=== PATIENT | male | born 1965 | race Caucasian/White ===

== ENCOUNTER 2017-08-06 16:12 | Emergency (ER) | payer MEDICAID ==
[~2017-08-06 16:12] MED LIST: ALBU6.7H INH; CYCL-36 PO; IBUP-238 PO; LORT5TAB PO; PRED20 PO; Z.0.NO CURRENT MEDS; ZITH250T PO
[2017-08-06 16:21] VITALS: BP 163/82; PULSE 79; RESP 16; TEMP 98.2; O2SAT 98
[2017-08-06] MEDS ORDERED: MORPHINE SULFATE 4 MG/ML INJ IV PUSH ONE (17:00)
[2017-08-06] MEDS ORDERED: SODIUM CHLORIDE 0.9% FLUSH 10 ML FLUSH IVF PRN (17:00)
[2017-08-06] MEDS ORDERED: ONDANSETRON HCL 4 MG/2 ML VIAL IV PUSH ONE (17:00)
[2017-08-06] MEDS ORDERED: SODIUM CHLORID 0.9% 500 ML INJ 500 ML IV ONE (17:00)
--- NOTE | 2017-08-06 17:22 | PD ---
HPI Chief Complaint: Cardiac Complaint Time Seen by Provider: 16:25 Travel History International Travel<30 days: No Contact w/Intl Traveler<30days: No Traveled to known affect area: No History of Present Illness HPI The patient is a 52-year-old male who presents emergency department for multiple complaints. The patient states he has a history of her herniated disks secondary to work. The patient was seen by Worker's Comp. physician, Dr. Freddy Morales. The patient was advised there was no surgery and he was advised to have outpatient treatment. The patient has been receiving epidural steroid injections at [facility] in [place], [place]. The patient had an epidural injection last week, states his blood pressure was slightly elevated , and was worried there could be some complication from the injection. He does complain of a mild headache, palpitations, intermittent sharp chest pains on the left side of the chest which lasts several seconds and then resolved. He does have a history of tobacco use with chronic cough, denies any acute shortness of breath or change in cough. He denies any nausea or vomiting. He does complain of chronic low back pain. He denies any diffuse myalgias or arthralgias. He denies any current fevers, chills, or sweats. PFSH Past Medical History Arthritis: No Cardiovascular Problems: No Cerebrovascular Accident: No Diminished Hearing: No Genitourinary: No Headaches: Yes Musculoskeletal: Yes (CHRONIC BACK PAIN) Neurologic: Yes Reproductive: No Respiratory: No Migraines: No Seizures: No Past Surgical History Abdominal Surgery: No Cardiac Surgery: No Ear Surgery: No Endocrine Surgery: No Eye Surgery: No Genitourinary Surgery: No Gynecologic Surgery: No Oral Surgery: No Thoracic Surgery: No Other Surgery: Yes (NECK) Social History Alcohol Use: Yes (OCCASIONAL) Tobacco Use: Yes (ONE PACK PER DAY) Substance Use: No Allergies-Medications (Allergen,Severity, Reaction): Coded Allergies: No Known Allergies (Verified , 01/20/13) Reported Meds & Prescriptions Reported Meds & Active Scripts Active No Active Prescriptions or Reported Medications Review of Systems Except as stated in HPI: all other systems reviewed are Neg General / Constitutional: No: Fever, Chills HENT: Positive: Headaches, No: Lightheadedness Cardiovascular: Positive: Chest Pain or Discomfort Respiratory: Positive: Cough, No: Shortness of Breath Gastrointestinal: No: Nausea, Vomiting, Diarrhea, Abdominal Pain Genitourinary: No: Dysuria Musculoskeletal: Positive: Pain (chronic low back pain), No: Myalgias, Arthralgias Neurologic: No: Dizziness Physical Exam Narrative GENERAL: Awake, alert, pleasant 52-year-old male who appears his stated age and is in no acute respiratory distress. SKIN: Focused skin assessment warm/dry. HEAD: Atraumatic. Normocephalic. EYES: Pupils equal and round. No scleral icterus. No injection or drainage. ENT: No nasal bleeding or discharge. Breath smells of cigarettes. NECK: Trachea midline. No JVD. CARDIOVASCULAR: Regular rate and rhythm. No murmur appreciated. RESPIRATORY: No accessory muscle use. Few scattered rhonchi. GASTROINTESTINAL: Abdomen soft, non-tender, nondistended. No rebound tenderness. Back: No CVA tenderness. No visible erythema or edema of the lower back noted. MUSCULOSKELETAL: No obvious deformities. No clubbing. No cyanosis. No edema. NEUROLOGICAL: Awake and alert. No obvious cranial nerve deficits. Motor grossly within normal limits. Normal speech. Nonfocal. PSYCHIATRIC: Appropriate mood and affect; insight and judgment normal. Data Data Last Documented VS Vital Signs Date Time Temp Pulse Resp B/P (MAP) Pulse Ox O2 Delivery O2 Flow Rate FiO2 08/06/17 17:55 Room Air 08/06/17 17:55 08/06/17 16:21 98.2 79 16 98 Orders Orders Electrocardiogram (08/06/17 16:54) Ckmb (Isoenzyme) Profile (08/06/17 16:54) Complete Blood Count With Diff (08/06/17 16:54) Comprehensive Metabolic Panel (08/06/17 16:54) Magnesium (Mg) (08/06/17 16:54) Prothrombin Time / Inr (Pt) (08/06/17 16:54) Act Partial Throm Time (Ptt) (08/06/17 16:54) Troponin I (08/06/17 16:54) Chest, Single Ap (08/06/17 16:54) Ecg Monitoring (08/06/17 16:54) Bilateral Bp Monitoring (08/06/17 16:54) Iv Access Insert/Monitor (08/06/17 16:54) Oximetry (08/06/17 16:54) Oxygen Administration (08/06/17 16:54) Sodium Chloride 0.9% Flush (Ns Flush) (08/06/17 17:00) Sodium Chlorid 0.9% 500 Ml Inj (Ns 500 M (08/06/17 17:00) Morphine Inj (Morphine Inj) (08/06/17 17:00) Ondansetron Inj (Zofran Inj) (08/06/17 17:00) Lactic Acid (08/06/17 16:54) Blood Culture (08/06/17 16:54) Influenzae A/B Antigen (08/06/17 17:45) Labs Laboratory Tests Test 08/06/17 17:40 08/06/17 17:50 White Blood Count 12.3 TH/MM3 Red Blood Count 5.07 MIL/MM3 Hemoglobin 16.7 GM/DL Hematocrit 47.6 % Mean Corpuscular Volume 93.7 FL Mean Corpuscular Hemoglobin 32.8 PG Mean Corpuscular Hemoglobin Concent 35.0 % Red Cell Distribution Width 13.8 % Platelet Count 310 TH/MM3 Mean Platelet Volume 8.1 FL Neutrophils (%) (Auto) 74.3 % Lymphocytes (%) (Auto) 17.6 % Monocytes (%) (Auto) 6.7 % Eosinophils (%) (Auto) 0.7 % Basophils (%) (Auto) 0.7 % Neutrophils # (Auto) 9.2 TH/MM3 Lymphocytes # (Auto) 2.2 TH/MM3 Monocytes # (Auto) 0.8 TH/MM3 Eosinophils # (Auto) 0.1 TH/MM3 Basophils # (Auto) 0.1 TH/MM3 CBC Comment AUTO DIFF Prothrombin Time 10.0 SEC Prothromb Time International Ratio 1.0 RATIO Activated Partial Thromboplast Time 23.7 SEC Blood Urea Nitrogen 14 MG/DL Creatinine 1.21 MG/DL Random Glucose 112 MG/DL Total Protein 7.1 GM/DL Albumin 3.8 GM/DL Calcium Level 9.2 MG/DL Magnesium Level 2.4 MG/DL Alkaline Phosphatase 63 U/L Aspartate Amino Transf (AST/SGOT) 15 U/L Alanine Aminotransferase (ALT/SGPT) 25 U/L Total Bilirubin 0.4 MG/DL Sodium Level 140 MEQ/L Potassium Level 3.8 MEQ/L Chloride Level 107 MEQ/L Carbon Dioxide Level 25.4 MEQ/L Anion Gap 8 MEQ/L Estimat Glomerular Filtration Rate 63 ML/MIN Total Creatine Kinase 51 U/L Troponin I LESS THAN 0.02 NG/ML Lactic Acid Level 0.8 mmol/L MDM Medical Decision Making Medical Screen Exam Complete: Yes Emergency Medical Condition: Yes Medical Record Reviewed: Yes Interpretation(s) EKG reveals normal sinus rhythm with short [place] interval of 111 ms. No delta wave noted. No ischemic changes noted. Last Impressions Chest X-Ray 08/06/17 4954 Signed Impressions: Service Date/Time: Sunday, August 06, 2017 17:07 - CONCLUSION: 1. No acute cardiopulmonary process. 2. Mild levoscoliosis of the dorsal spine which may be positional. Matt Powell MD Laboratory Tests Test 08/06/17 17:40 08/06/17 17:50 White Blood Count 12.3 TH/MM3 Red Blood Count 5.07 MIL/MM3 Hemoglobin 16.7 GM/DL Hematocrit 47.6 % Mean Corpuscular Volume 93.7 FL Mean Corpuscular Hemoglobin 32.8 PG Mean Corpuscular Hemoglobin Concent 35.0 % Red Cell Distribution Width 13.8 % Platelet Count 310 TH/MM3 Mean Platelet Volume 8.1 FL Neutrophils (%) (Auto) 74.3 % Lymphocytes (%) (Auto) 17.6 % Monocytes (%) (Auto) 6.7 % Eosinophils (%) (Auto) 0.7 % Basophils (%) (Auto) 0.7 % Neutrophils # (Auto) 9.2 TH/MM3 Lymphocytes # (Auto) 2.2 TH/MM3 Monocytes # (Auto) 0.8 TH/MM3 Eosinophils # (Auto) 0.1 TH/MM3 Basophils # (Auto) 0.1 TH/MM3 CBC Comment AUTO DIFF Prothrombin Time 10.0 SEC Prothromb Time International Ratio 1.0 RATIO Activated Partial Thromboplast Time 23.7 SEC Blood Urea Nitrogen 14 MG/DL Creatinine 1.21 MG/DL Random Glucose 112 MG/DL Total Protein 7.1 GM/DL Albumin 3.8 GM/DL Calcium Level 9.2 MG/DL Magnesium Level 2.4 MG/DL Alkaline Phosphatase 63 U/L Aspartate Amino Transf (AST/SGOT) 15 U/L Alanine Aminotransferase (ALT/SGPT) 25 U/L Total Bilirubin 0.4 MG/DL Sodium Level 140 MEQ/L Potassium Level 3.8 MEQ/L Chloride Level 107 MEQ/L Carbon Dioxide Level 25.4 MEQ/L Anion Gap 8 MEQ/L Estimat Glomerular Filtration Rate 63 ML/MIN Total Creatine Kinase 51 U/L Troponin I LESS THAN 0.02 NG/ML Lactic Acid Level 0.8 mmol/L Date/Time Source Procedure Growth Status 08/06/17 17:40 Blood Peripheral Aerobic Blood Culture Pending Received 08/06/17 17:40 Blood Peripheral Anaerobic Blood Culture Pending Received 08/06/17 17:40 Blood Peripheral Aerobic Blood Culture Pending Received 08/06/17 17:40 Blood Peripheral Anaerobic Blood Culture Pending Received 08/06/17 17:40 Nasal Aspirate Influenza Types A,B Antigen (JESSICA) - Final NEGATIVE FOR FLU A AND B ANTIGEN.... Complete Differential Diagnosis Differential diagnosis includes influenza, pneumonia, UTI, epidural steroid injections side effect, symptomatic anemia, hyponatremia, palpitations, arrhythmia, hypothyroidism, anxiety. Narrative Course IV was established, labs are drawn and sent, and the patient was placed on cardiac telemetry monitoring and continuous pulse oximetry monitoring. EKG was ordered and interpreted. Chest x-ray was obtained. Lactic acid and blood culture were sent to lab. Influenza screen was sent to lab. The patient received IV fluids. Chest x-rays unremarkable. Influenza screen is negative. Troponin was negative. The patient's pain is sharp, lasts seconds, is not exertional. Very atypical chest pain. I did have a discussion with the patient regarding cessation of smoking. Blood pressure was elevated 160s over 90s, we will place the patient on Norvasc and refer him to the local clinic. He is advised to return if symptoms worsen or progress. Diagnosis Primary Impression: Atypical chest pain Additional Impression: Hypertension Qualified Codes: I10 - Essential (primary) hypertension Referrals: [facility] call for appointment Patient Instructions: General Instructions Additional Instructions: Stop smoking. Follow-up at the clinic. Medications as directed. Return if symptoms worsen or progress. Please provide a patient a copy of his EKG and labs at discharge. Med/Other Pt SpecificInfo: Prescription(s) given Scripts Amlodipine (Norvasc) 5 Mg Tab 5 MG PO DAILY for Blood Pressure Management, #30 TAB 0 Refills Prov: Osei Mederos MD 08/06/17 Disposition: 01 DISCHARGE HOME Condition: Stable Osei Mederos MD Aug 06, 2017 17:22
--- NOTE | 2017-08-06 17:30 | RADRPT ---
EXAM DATE/TIME: 08/06/2017 17:07 [facility] COMPARISON: No previous studies available for comparison. INDICATIONS : Chest pain. Palpitations. Patent states he as felt strange since his epidural shot last week. MEDICAL HISTORY : None. SURGICAL HISTORY : None. ENCOUNTER: Initial ACUITY: 4 - 6 days PAIN SCORE: 4/10 LOCATION: Bilateral chest FINDINGS: A single view of the chest demonstrates the lungs to be symmetrically aerated without evidence of mas s, infiltrate or effusion. The cardiomediastinal contours are unremarkable. Osseous structures are intact with a mild levoscoliosis of the dorsal spine. CONCLUSION: 1. No acute cardiopulmonary process. 2. Mild levoscoliosis of the dorsal spine which may be positional. Matt Powell MD on August 06, 2017 at 17:27 Board Certified Radiologist. This report was verified electronically.
[2017-08-06 18:11] LABS: AUTOMATED NEUTROPHIL # 9.2 TH/MM3 (1.8-7.7); BASOPHIL # 0.1 TH/MM3 (0-0.2); BASOPHIL % 0.7 % (0.0-2.0); EOSINOPHIL # 0.1 TH/MM3 (0-0.4); EOSINOPHIL % 0.7 % (0.0-4.0); HEMATOCRIT 47.6 % (39.0-51.0); HEMOGLOBIN 16.7 GM/DL (13.0-17.0); LYMPH % 17.6 % (9.0-44.0); LYMPHOCYTE # 2.2 TH/MM3 (1.0-4.8); MEAN CELL VOLUME 93.7 FL (80.0-100.0); MEAN CORPUSCULAR HEMOGLOBIN 32.8 PG (27.0-34.0); MEAN PLATELET VOLUME 8.1 FL (7.0-11.0); MONO % 6.7 % (0.0-8.0); MONOCYTE # 0.8 TH/MM3 (0-0.9); NEUT % 74.3 % (16.0-70.0); PLATELET COUNT 310 TH/MM3 (150-450); RED BLOOD COUNT 5.07 MIL/MM3 (4.50-5.90); RED CELL DISTRIBUTION WIDTH 13.8 % (11.6-17.2); WHITE BLOOD COUNT 12.3 TH/MM3 (4.0-11.0)
[2017-08-06 18:35] LABS: ALBUMIN 3.8 GM/DL (3.4-5.0); AST (GOT) 15 U/L (15-37); BICARBONATE 25.4 MEQ/L (21.0-32.0); BLOOD UREA NITROGEN 14 MG/DL (7-18); CALCIUM 9.2 MG/DL (8.5-10.1); CHLORIDE 107 MEQ/L (98-107); CREATININE 1.21 MG/DL (0.60-1.30); GLOMERULAR FILTRATION RATE 63 ML/MIN (>89); GLUCOSE,RANDOM 112 MG/DL (74-106); MAGNESIUM 2.4 MG/DL (1.5-2.5); SODIUM (NA) 140 MEQ/L (136-145)
[2017-08-06 18:37] LABS: ALKALINE PHOSPHATASE 63 U/L (45-117); ALT (GPT) 25 U/L (12-78); TOTAL BILIRUBIN ADULT 0.4 MG/DL (0.2-1.0); TOTAL PROTEIN 7.1 GM/DL (6.4-8.2); TROPONIN I LESS THAN 0.02 NG/ML (0.02-0.05)
[2017-08-06] MEDS ORDERED: AMLO5 PO ×2 (19:19→19:40)
[2017-08-06 19:30] VITALS: BP 160/92
--- NOTE | 2017-08-07 00:39 | EKG ---
Date Performed: 08/06/2017 Time Performed: 16:21:30 PTAGE: 52 years EKG: Sinus rhythm WITH SHORT MD INTERVAL BORDERLINE ECG Since the prior tracing, there has been no significant change DOCTOR: Mingo Brandt Interpretating Date/Time 08/07/2017 00:38:45
== END 2017-08-06 19:49 | disposition home or self-care (01) ==
LOC: NEPC 16:12
DX: R07.89 Other chest pain (principal); B95.7 Other staphylococcus as the cause of diseases classified elsewhere; R00.2 Palpitations; R51 Headache; M41.9 Scoliosis, unspecified; M54.5 Low back pain; G89.29 Other chronic pain; I10 Essential (primary) hypertension; F17.200 Nicotine dependence, unspecified, uncomplicated
CPT/HCPCS: 71045; 80053; 82550; 83605; 83735; 84484; 85025; 85610; 85730; 86403; 87040; 87077; 87186; 87205; 87804; 93005; 96374; 96375; 99285; J2270; J2405; J7040

== ENCOUNTER 2017-08-11 11:44 | Inpatient (IN) | payer MEDICAID ==
[~2017-08-11] VITALS: Ht 182.9 cm; Wt 55.6 kg
[~2017-08-11 11:44] MED LIST changes: -ALBU6.7H INH; +AMLO5 PO; -CYCL-36 PO; -IBUP-238 PO; -LORT5TAB PO; -PRED20 PO; -Z.0.NO CURRENT MEDS; -ZITH250T PO
[2017-08-11 11:46] VITALS: BP 136/92; PULSE 83; RESP 18; TEMP 97.5; O2SAT 83; O2SAT 93
[2017-08-11] MEDS ORDERED: SODIUM CHLOR 0.9% 1000 ML INJ 1,000 ML IV ONE (12:30)
[2017-08-11] MEDS ORDERED: LEVOFLOXACIN 750 MG PREMIX INJ 150 ML IV ONE (12:30)
--- NOTE | 2017-08-11 12:46 | RADRPT ---
EXAM DATE/TIME: 08/11/2017 12:32 [facility] COMPARISON: CHEST SINGLE AP, August 06, 2017, 17:07. INDICATIONS : Fever and short of breath. MEDICAL HISTORY : None. SURGICAL HISTORY : None. ENCOUNTER: Initial ACUITY: 1 day PAIN SCORE: 0/10 LOCATION: Bilateral chest FINDINGS: A single view of the chest demonstrates the lungs to be symmetrically aerated without evidence of mas s, infiltrate or effusion. The cardiomediastinal contours are unremarkable. Osseous structures are intact. CONCLUSION: No acute disease. Reza Diaz MD on August 11, 2017 at 12:43 Board Certified Radiologist. This report was verified electronically.
[2017-08-11 12:48] LABS: AUTOMATED NEUTROPHIL # 7.1 TH/MM3 (1.8-7.7); BASOPHIL # 0.1 TH/MM3 (0-0.2); BASOPHIL % 0.9 % (0.0-2.0); EOSINOPHIL # 0.1 TH/MM3 (0-0.4); EOSINOPHIL % 1.4 % (0.0-4.0); HEMATOCRIT 47.2 % (39.0-51.0); HEMOGLOBIN 16.3 GM/DL (13.0-17.0); LYMPH % 23.3 % (9.0-44.0); LYMPHOCYTE # 2.4 TH/MM3 (1.0-4.8); MEAN CELL VOLUME 94.5 FL (80.0-100.0); MEAN CORPUSCULAR HEMOGLOBIN 32.6 PG (27.0-34.0); MEAN CORPUSCULAR HGB CONC 34.5 % (32.0-36.0); MEAN PLATELET VOLUME 7.8 FL (7.0-11.0); MONO % 6.7 % (0.0-8.0); MONOCYTE # 0.7 TH/MM3 (0-0.9); NEUT % 67.7 % (16.0-70.0); PLATELET COUNT 305 TH/MM3 (150-450); RED BLOOD COUNT 4.99 MIL/MM3 (4.50-5.90); RED CELL DISTRIBUTION WIDTH 14.2 % (11.6-17.2); WHITE BLOOD COUNT 10.4 TH/MM3 (4.0-11.0)
[2017-08-11 13:04] LABS: ALBUMIN 3.9 GM/DL (3.4-5.0); BLOOD UREA NITROGEN 13 MG/DL (7-18); CALCIUM 9.5 MG/DL (8.5-10.1); CHLORIDE 105 MEQ/L (98-107); CREATININE 1.19 MG/DL (0.60-1.30); GLOMERULAR FILTRATION RATE 64 ML/MIN (>89); GLUCOSE,RANDOM 86 MG/DL (74-106); SODIUM (NA) 138 MEQ/L (136-145)
[2017-08-11 13:05] LABS: ALT (GPT) 21 U/L (12-78)
[2017-08-11 13:07] LABS: ALKALINE PHOSPHATASE 66 U/L (45-117); AST (GOT) 10 U/L (15-37); TOTAL BILIRUBIN ADULT 0.4 MG/DL (0.2-1.0); TOTAL PROTEIN 7.4 GM/DL (6.4-8.2)
--- NOTE | 2017-08-11 14:26 | PD ---
HPI Chief Complaint: Abnormal Results Time Seen by Provider: 12:09 Travel History International Travel<30 days: No Contact w/Intl Traveler<30days: No Traveled to known affect area: No History of Present Illness HPI Patient is a 52 year old male who comes in because he was called to come to the Emergency Department. He had blood cultures drawn on a previous visit and was called to come back because they were growing staph. He says he has been feeling unwell for the past month. He says he has been shaking, but cannot describe further his symptoms. He is concerned that his blood pressure has been high. He is not having any chest pain or shortness of breath. He has not had any cough or cold. He denies nausea or vomiting. He has been taking pain medicine for his back. Nothing seems to improve his shaking. 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) Social History Alcohol Use: Yes (OCCASIONAL) Tobacco Use: Yes (ONE PACK PER DAY) Substance Use: No Allergies-Medications (Allergen,Severity, Reaction): Coded Allergies: No Known Allergies (Verified Allergy, Unknown, 08/11/17) Reported Meds & Prescriptions Reported Meds & Active Scripts Active Norvasc (Amlodipine Besylate) 5 Mg Tab 5 Mg PO DAILY Review of Systems Except as stated in HPI: all other systems reviewed are Neg General / Constitutional: Positive: Chills, No: Fever HENT: No: Headaches, Lightheadedness Cardiovascular: No: Chest Pain or Discomfort Respiratory: No: Shortness of Breath Gastrointestinal: No: Nausea, Vomiting Genitourinary: No: Dysuria Musculoskeletal: No: Myalgias Skin: No Rash, No Change in Pigmentation Neurologic: No: Weakness, Dizziness Physical Exam Narrative GENERAL: Awake and alert, no acute distress. SKIN: Focused skin assessment warm/dry. No wounds or signs of infection. HEAD: Atraumatic. Normocephalic. EYES: Pupils equal and round. No scleral icterus. ENT: Mucous membranes pink and moist. NECK: Trachea midline. No JVD. CARDIOVASCULAR: Regular rate and rhythm. No murmur appreciated. RESPIRATORY: No accessory muscle use. Clear to auscultation. Breath sounds equal bilaterally. GASTROINTESTINAL: Abdomen soft, non-tender, nondistended. MUSCULOSKELETAL: No obvious deformities. No clubbing. No cyanosis. No edema. NEUROLOGICAL: Awake and alert. No obvious cranial nerve deficits. Motor grossly within normal limits. Normal speech. PSYCHIATRIC: Appropriate mood and affect; insight and judgment normal. Data Data Last Documented VS Vital Signs Date Time Temp Pulse Resp B/P (MAP) Pulse Ox O2 Delivery O2 Flow Rate FiO2 08/11/17 11:46 97.5 83 18 136/92 (107) 93 Room Air Orders Orders Iv Access Insert/Monitor (08/11/17 12:17) Complete Blood Count With Diff (08/11/17 12:17) Comprehensive Metabolic Panel (08/11/17 12:17) Chest, Single Ap (08/11/17 ) Blood Culture (08/11/17 12:17) Sodium Chlor 0.9% 1000 Ml Inj (Ns 1000 M (08/11/17 12:30) Influenzae A/B Antigen (08/11/17 12:17) Levofloxacin 750 Mg Premix Inj (Levaquin (08/11/17 12:30) Admit Order (Ed Use Only) (08/11/17 ) Admit To Inpatient (08/11/17 ) Vital Signs (Adult) DENG.[id number] (08/11/17 14:30) Activity Oob With Assistance (08/11/17 14:30) Inpatient Certification (08/11/17 ) Consult Infectious Disease (08/11/17 ) Labs Laboratory Tests Test 08/11/17 12:30 White Blood Count 10.4 TH/MM3 Red Blood Count 4.99 MIL/MM3 Hemoglobin 16.3 GM/DL Hematocrit 47.2 % Mean Corpuscular Volume 94.5 FL Mean Corpuscular Hemoglobin 32.6 PG Mean Corpuscular Hemoglobin Concent 34.5 % Red Cell Distribution Width 14.2 % Platelet Count 305 TH/MM3 Mean Platelet Volume 7.8 FL Neutrophils (%) (Auto) 67.7 % Lymphocytes (%) (Auto) 23.3 % Monocytes (%) (Auto) 6.7 % Eosinophils (%) (Auto) 1.4 % Basophils (%) (Auto) 0.9 % Neutrophils # (Auto) 7.1 TH/MM3 Lymphocytes # (Auto) 2.4 TH/MM3 Monocytes # (Auto) 0.7 TH/MM3 Eosinophils # (Auto) 0.1 TH/MM3 Basophils # (Auto) 0.1 TH/MM3 CBC Comment DIFF FINAL Differential Comment Blood Urea Nitrogen 13 MG/DL Creatinine 1.19 MG/DL Random Glucose 86 MG/DL Total Protein 7.4 GM/DL Albumin 3.9 GM/DL Calcium Level 9.5 MG/DL Alkaline Phosphatase 66 U/L Aspartate Amino Transf (AST/SGOT) 10 U/L Alanine Aminotransferase (ALT/SGPT) 21 U/L Total Bilirubin 0.4 MG/DL Sodium Level 138 MEQ/L Potassium Level 3.8 MEQ/L Chloride Level 105 MEQ/L Carbon Dioxide Level 26.0 MEQ/L Anion Gap 7 MEQ/L Estimat Glomerular Filtration Rate 64 ML/MIN MDM Medical Decision Making Medical Screen Exam Complete: Yes Emergency Medical Condition: Yes Medical Record Reviewed: Yes Differential Diagnosis Bacteremia versus sepsis versus contaminant Narrative Course Patient is a 52-year-old male who comes in because he was told he had positive blood cultures. Exam shows no acute abnormalities. IV established, labs sent. Blood cultures resent. Given IV fluids and a dose of Levaquin per sensitivities from the positive blood cultures. He will be admitted for further management. Diagnosis Primary Impression: Positive blood cultures Noreen Hui MD Aug 11, 2017 14:26
[2017-08-11 15:02] VITALS: BP 131/77; PULSE 69; RESP 16; O2SAT 100
[2017-08-11 16:30] VITALS: BP 164/87; PULSE 83; RESP 18; TEMP 98.3; O2SAT 98
[2017-08-11] MEDS ORDERED: MORPHINE SULFATE 2 MG/ML INJ IV PUSH PRN (16:45)
[2017-08-11] MEDS ORDERED: cloNIDine HCL 0.1 MG TAB PO PRN ×2 (16:45→17:30)
[2017-08-11] MEDS ORDERED: RESP: ALBUTEROL 2.5 MG/IPRATROPIUM 0.5 MG NEB (PRN) NEB (16:45)
[2017-08-11] MEDS ORDERED: SENNOSIDES 8.6 MG TAB PO PRN (16:45)
[2017-08-11] MEDS ORDERED: ACETAMINOPHEN 325 MG TAB PO PRN ×2 (16:45)
[2017-08-11] MEDS ORDERED: oxyCODONE/ACETAMINOPHEN 5 MG/325 MG TAB PO PRN (16:45)
[2017-08-11] MEDS ORDERED: ZOLPIDEM TARTRATE 5 MG TAB PO PRN (16:45)
[2017-08-11] MEDS ORDERED: LACTULOSE SYRUP 20 GM/30 ML CUP PO PRN (16:45)
[2017-08-11] MEDS ORDERED: MORPHINE SULFATE 4 MG/ML INJ IV PUSH PRN (16:45)
[2017-08-11] MEDS ORDERED: NICOTINE 14 MG/24 HR PATCH T-DERMAL ONE (16:45)
[2017-08-11] MEDS ORDERED: MAGNESIUM HYDROXIDE SUSP 30 ML CUP PO PRN (16:45)
[2017-08-11] MEDS ORDERED: NALOXONE HCL 0.4 MG/ML AMP IV PUSH PRN (16:45)
[2017-08-11] MEDS ORDERED: ONDANSETRON HCL 4 MG/2 ML VIAL IVP PRN (16:45)
[2017-08-11] MEDS ORDERED: BISACODYL 10 MG SUPP RECTAL PRN (16:45)
[2017-08-11] MEDS ORDERED: METOCLOPRAMIDE HCL 10 MG/2 ML VIAL IV PUSH PRN (16:45)
--- NOTE | 2017-08-11 17:10 | HHI.HP ---
[facility] Service [facility] Primary Care Physician No Primary Care Physician Admission Diagnosis Positive blood culture Diagnoses: Chief Complaint: HE was recommended to come in to the hospital for positive blood cultures Travel History International Travel<30 Days: No Contact w/Intl Traveler <30 Da: No Traveled to Known Affected Are: No History of Present Illness Patient is a 52-year-old gentleman. He presented to the emergency department after being seen here and had positive blood cultures. He was told to come back to the hospital for further evaluation. His blood cultures are currently positive for [employer] with positive sensitivity for Levaquin. We'll consult infectious disease. Patient also states he's had maybe a 20 pound weight loss with inactivity over the last 6-7 months due to his injury to his back from [employer]. States he has had multiple steroid injections in his back Review of Systems Constitutional: COMPLAINS OF: Fatigue, Weight loss, DENIES: Diaphoretic episodes, Fever, Weight gain, Chills, Dizziness, Change in appetite, Night Sweats Endocrine: DENIES: Heat/cold intolerance, Polydipsia, Polyuria, Polyphagia Eyes: DENIES: Blurred vision, Diplopia, Eye inflammation, Eye pain Ears, nose, mouth, throat: DENIES: Tinnitus, Hearing loss, Vertigo, Nasal discharge, Oral lesions, Throat pain, Hoarseness Respiratory: COMPLAINS OF: Cough, DENIES: Apneas, Snoring, Wheezing, Hemoptysis , Sputum production, Shortness of breath Cardiovascular: DENIES: Chest pain, Palpitations, Syncope, Dyspnea on Exertion , PND, Lower Extremity Edema Gastrointestinal: DENIES: Abdominal pain, Black stools, Bloody stools, Constipation, Diarrhea Genitourinary: DENIES: Sexual dysfunction, Urinary frequency, Urinary incontinence Musculoskeletal: COMPLAINS OF: Joint pain, Back pain, Neck pain, DENIES: Muscle aches, Stiffness, Joint Swelling Integumentary: DENIES: Abnormal pigmentation, Nail changes, Pruritus, Rash Hematologic/lymphatic: DENIES: Bruising, Lymphadenopathy Immunologic/allergic: DENIES: Eczema, Urticaria Neurologic: DENIES: Abnormal gait, Headache, Localized weakness, Paresthesias, Seizures, Speech Problems, Tremor, Poor Balance Psychiatric: DENIES: Anxiety, Confusion, Mood changes, Depression, Hallucinations, Agitation, Suicidal Ideation, Homicidal Ideation, Delusions Except as stated in HPI: all other systems reviewed are Neg Past Family Social History Past Medical History Hypertension Chronic neck pain Chronic back pain since injury to his back Tobacco abuse Past Surgical History Artificial disc surgery in his neck Multiple epidural steroid injections in his lower back Reported Medications Reported Meds & Active Scripts Active Norvasc (Amlodipine Besylate) 5 Mg Tab 5 Mg PO DAILY Allergies: Coded Allergies: No Known Allergies (Verified Adverse Reaction, Unknown, 08/11/17) Active Ordered Medications Current Medications Sodium Chloride 1,000 ml @ 999 mls/hr BOLUS ONCE IV Last administered on 08/11at 12:36; Start 08/11/17 at 12:30; Stop 08/11/17 at 13:30; Status DC Levofloxacin/ Dextrose 150 ml @ 100 mls/hr ONCE ONCE IV Last administered on 08/11/17at 12:36; Start 08/11/17 at 12:30; Stop 08/11/17 at 13:59; Status DC Family History Mother with heart disease had bypass surgery at age 35 Father at 54 from prostate cancer Social History Tobacco abuse at least a pack daily Occasional alcoholic beverage Denies any illicits Physical Exam Vital Signs Vital Signs Date Time Temp Pulse Resp B/P (MAP) Pulse Ox O2 Delivery O2 Flow Rate FiO2 08/11/17 15:02 69 16 131/77 (95) 100 Room Air 08/11/17 11:46 97.5 83 18 136/92 (107) 93 Room Air Physical Exam GENERAL: This is a white thin male, well-developed patient, in no apparent distress. Actually appears to be quite thin male SKIN: No rashes, ecchymoses or lesions. Cool and dry. HEAD: Atraumatic. Normocephalic. No temporal or scalp tenderness. EYES: Pupils equal round and reactive. Extraocular motions intact. No scleral icterus. No injection or drainage. ENT: Nose without bleeding, purulent drainage or septal hematoma. Throat without erythema, tonsillar hypertrophy or exudate. Uvula midline. Airway patent. NECK: Trachea midline. No JVD or lymphadenopathy. Supple, nontender, no meningeal signs. CARDIOVASCULAR: Regular rate and rhythm without murmurs, gallops, or rubs. S1- S2 no S3-S4 RESPIRATORY: Clear to auscultation. Breath sounds equal bilaterally. No wheezes , rales, Few scattered rhonchi GASTROINTESTINAL: Abdomen soft, non-tender, nondistended. No hepato-splenomegaly , or palpable masses. No guarding. MUSCULOSKELETAL: Extremities without clubbing, cyanosis, or edema. No joint tenderness, effusion, or edema noted. No calf tenderness. Negative Homans sign bilaterally. NEUROLOGICAL: Awake and alert. Cranial nerves II through XII intact. Motor and sensory grossly within normal limits. 4 out of 5 muscle strength in all muscle groups. Normal speech. Insight and judgment is good Mood and behavior is appropriate Laboratory Laboratory Tests Test 08/11/17 12:30 White Blood Count 10.4 Red Blood Count 4.99 Hemoglobin 16.3 Hematocrit 47.2 Mean Corpuscular Volume 94.5 Mean Corpuscular Hemoglobin 32.6 Mean Corpuscular Hemoglobin Concent 34.5 Red Cell Distribution Width 14.2 Platelet Count 305 Mean Platelet Volume 7.8 Neutrophils (%) (Auto) 67.7 Lymphocytes (%) (Auto) 23.3 Monocytes (%) (Auto) 6.7 Eosinophils (%) (Auto) 1.4 Basophils (%) (Auto) 0.9 Neutrophils # (Auto) 7.1 Lymphocytes # (Auto) 2.4 Monocytes # (Auto) 0.7 Eosinophils # (Auto) 0.1 Basophils # (Auto) 0.1 CBC Comment DIFF FINAL Differential Comment Blood Urea Nitrogen 13 Creatinine 1.19 Random Glucose 86 Total Protein 7.4 Albumin 3.9 Calcium Level 9.5 Alkaline Phosphatase 66 Aspartate Amino Transf (AST/SGOT) 10 Alanine Aminotransferase (ALT/SGPT) 21 Total Bilirubin 0.4 Sodium Level 138 Potassium Level 3.8 Chloride Level 105 Carbon Dioxide Level 26.0 Anion Gap 7 Estimat Glomerular Filtration Rate 64 Date/Time Source Procedure Growth Status 08/11/17 12:30 Blood Peripheral Aerobic Blood Culture Pending Received 08/11/17 12:30 Blood Peripheral Anaerobic Blood Culture Pending Received 08/11/17 12:30 Nasal Washing Influenza Types A,B Antigen (JESSICA) - Final NEGATIVE FOR FLU A AND B ANTIGEN.... Complete Result Diagram: 08/11/17 1230 08/11/17 1230 Imaging Last Impressions Chest X-Ray 08/11/17 0000 Signed Impressions: Service Date/Time: Friday, August 11, 2017 12:32 - CONCLUSION: No acute disease. MD Laura Gonzalez VTE Risk Assessment Caprini VTE Risk Assessment: Mod/High Risk (score >= 2) Caprini Risk Assessment Model Point Value = 1 Point Value = 2 Point Value = 3 Point Value = 5 Age 41-60 Minor surgery BMI > 25 kg/m2 Swollen legs Varicose veins or History of unexplained or recurrent spontaneous Oral contraceptives or hormone replacement Sepsis (< 1 month) Serious lung disease, including pneumonia (< 1 month) Abnormal pulmonary function Acute myocardial infarction Congestive heart failure (< 1 month) History of inflammatory bowel disease Medical patient at bed rest Age 61-74 Arthroscopic surgery Major open surgery (> 45 min) Laparoscopic surgery (> 45 min) Malignancy Confined to bed (> 72 hours) Immobilizing plaster cast Central venous access Age >= 75 History of VTE Family history of VTE Factor V Leiden Prothrombin [id number] Lupus anticoagulant Anticardiolipin antibodies Elevated serum homocysteine Heparin-induced thrombocytopenia Other congenital or acquired thrombophilia Stroke (< 1 month) Elective arthroplasty Hip, pelvis, or leg fracture Acute spinal cord injury (< 1 month) Prophylaxis Regimen Total Risk Factor Score Risk Level Prophylaxis Regimen 0-1 Low Early ambulation 2 Moderate Order ONE of the following: *Sequential Compression Device (SCD) *Heparin 5000 units SQ BID 3-4 Higher Order ONE of the following medications: *Heparin 5000 units SQ TID *Enoxaparin/Lovenox 40 mg SQ daily (WT < 150 kg, CrCl > 30 mL/min) *Enoxaparin/Lovenox 30 mg SQ daily (WT < 150 kg, CrCl > 10-29 mL/min) *Enoxaparin/Lovenox 30 mg SQ BID (WT < 150 kg, CrCl > 30 mL/min) AND/OR *Sequential Compression Device (SCD) 5 or more Highest Order ONE of the following medications: *Heparin 5000 units SQ TID (Preferred with Epidurals) *Enoxaparin/Lovenox 40 mg SQ daily (WT < 150 kg, CrCl > 30 mL/min) *Enoxaparin/Lovenox 30 mg SQ daily (WT < 150 kg, CrCl > 10-29 mL/min) *Enoxaparin/Lovenox 30 mg SQ BID (WT < 150 kg, CrCl > 30 mL/min) AND *Sequential Compression Device (SCD) Assessment and Plan Assessment and Plan Positive blood cultures. We'll repeat blood cultures. We'll start on Levaquin. We'll consult infectious disease. We'll get an echocardiogram. To rule out endocarditis. Weight loss states of 10-20 pounds unintentional will get CAT scans of the abdomen and pelvis and chest as well as chest x-ray two-view and echocardiogram Back injury with recent epidural steroid injections pain control as needed Neck surgery in the past with history of artificial disc. Hypertension continue on home medications Tobacco abuse recommend cessation Family history of prostate cancer we'll check PSA A.m. labs Physical therapy and occupational therapy to eval and treat Discussed with patient and RN GI and DVT prophylaxis Code Status Full code Discussed Condition With RN and patient and family and emergency room physician Physician Certification 2 Midnight Certification Type: Admission for Inpatient Services Order for Inpatient Services The services are ordered in accordance with Medicare regulations or non- Medicare payer requirements, as applicable. In the case of services not specified as inpatient-only, they are appropriately provided as inpatient services in accordance with the 2-midnight benchmark. Estimated LOS (days): 2 days is the estimated time the patient will need to remain in the hospital, assuming treatment plan goals are met and no additional complications. Post-Hospital Plan: Not yet determined Robbie Urbano DO Aug 11, 2017 17:09
[2017-08-11] MEDS ORDERED: DIATRIZOATE MEGLUM/DIATRIZOATE SOD 9 ML CUP PO ONE (17:30)
[2017-08-11] MEDS: LACTOBACILLUS ACIDOPHILUS TAB PO SCH (17:42)
[2017-08-11 20:00] VITALS: BP 112/78; PULSE 73; PULSE 75; RESP 16; TEMP 96.4; O2SAT 97
[2017-08-11 20:01] VITALS: O2SAT 98
[2017-08-11 20:31] LABS: TROPONIN I LESS THAN 0.02 NG/ML (0.02-0.05)
[2017-08-11] MEDS ORDERED: IOHEXOL 350 MG/ML 10 ML VIAL (for RAD DIAG) IVCONTRAST ONE (20:40)
[2017-08-11] MEDS: DOCUSATE SODIUM 50 MG/SENNA 8.6 MG TAB PO SCH (21:00)
[2017-08-11] MEDS: guaiFENesin E.R. 600 MG TAB PO SCH (22:23)
[2017-08-11] MEDS: FAMOTIDINE 20 MG TAB PO SCH (22:23)
[2017-08-11] MEDS: SODIUM CHLORIDE 0.9% FLUSH 10 ML FLUSH IV FLUSH SCH (22:23)
[2017-08-11] MEDS: oxyCODONE/ACETAMINOPHEN 10 MG/325 MG TAB PO PRN (22:27)
--- NOTE | 2017-08-11 22:27 | RADRPT ---
EXAM DATE/TIME: 08/11/2017 20:40 [facility] COMPARISON: No previous studies available for comparison. INDICATIONS : Unexplained weight loss. IV CONTRAST: 95 cc Omnipaque 350 (iohexol) IV ; Cumulative dose for multiple exams. RADIATION DOSE: 6.96 CTDIvol (mGy) ; Combined studies - Thorax/Abdomen/Pelvis MEDICAL HISTORY : Hypertension. SURGICAL HISTORY : Fusion, cervical. ENCOUNTER: Initial ACUITY: 1 month PAIN SCALE: 0/10 LOCATION: chest TECHNIQUE: Volumetric scanning of the chest was performed. Using automated exposure control and adjustment of t he mA and/or kV according to patient size, radiation dose was kept as low as reasonably achievable to obtain optimal diagnostic quality images. DICOM format image data is available electronically for review and comparison. Follow-up recommendations for detected pulmonary nodules are based at a minimum on nodule size and pa tient risk factors according to Fleischner Society Guidelines. FINDINGS: LUNGS: Scattered emphysematous changes are noted. Biapical fibrotic scarring is noted. There is a 6 mm nonca lcified nodule within the left mid lung field which is indeterminate. Followup CT of the chest in 6 m [facility] is recommended to confirm stability. No alveolar or interstitial infiltrate is noted. No pulmon tunde edema is noted. PLEURA: There is no pleural thickening or pleural effusion. MEDIASTINUM: The heart and great vessels demonstrate no acute abnormality. There is no mediastinal or hilar lymph adenopathy. AXILLAE: Within normal limits. No lymphadenopathy. SKELETAL: Mild degenerative changes and scoliosis of the thoracic spine are noted. MISCELLANEOUS: The visualized upper abdominal organs demonstrate no acute abnormality. CONCLUSION: 1. Scattered emphysematous changes. 2. 6 mm noncalcified nodule within the left mid lung field which is indeterminate. Followup CT of the chest in 6 months is recommended to confirm stability. 3. Biapical fibrotic scarring. 4. Mild degenerative changes and scoliosis of the thoracic spine. Tucker Steve MD on August 11, 2017 at 22:20 Board Certified Radiologist. This report was verified electronically.
--- NOTE | 2017-08-11 22:28 | RADRPT ---
EXAM DATE/TIME: 08/11/2017 20:34 [facility] COMPARISON: No previous studies available for comparison. INDICATIONS : Cough. MEDICAL HISTORY : None. SURGICAL HISTORY : None. ENCOUNTER: Initial ACUITY: 1 month PAIN SCORE: 0/10 LOCATION: Bilateral chest FINDINGS: Scattered emphysematous changes are noted. There is no focal infiltrate or pulmonary vascular congest ion. No pulmonary masses noted. The heart is normal in size and appearance. Mild degenerative changes and scoliosis of the thoracic spine are noted. CONCLUSION: Scattered emphysematous changes. Mild degenerative changes and scoliosis of the thora cic spine. Otherwise unremarkable chest. Tucker Steve MD on August 11, 2017 at 22:24 Board Certified Radiologist. This report was verified electronically.
--- NOTE | 2017-08-11 23:21 | RADRPT ---
EXAM DATE/TIME: 08/11/2017 20:40 [facility] COMPARISON: No previous studies available for comparison. INDICATIONS : Unexplained weight loss. IV CONTRAST: 95 cc Omnipaque 300 (iohexol) IV ; Cumulative dose for multiple exams. ORAL CONTRAST: Prescribed oral contrast ingested. RADIATION DOSE: 6.96 CTDIvol (mGy) ; Combined studies - Thorax/Abdomen/Pelvis MEDICAL HISTORY : Hypertension. SURGICAL HISTORY : Fusion, cervical. ENCOUNTER: Initial ACUITY: 1 month PAIN SCALE: 0/10 LOCATION: abdomen TECHNIQUE: Volumetric scanning of the abdomen and pelvis was performed. Using automated exposure control and ad justment of the mA and/or kV according to patient size, radiation dose was kept as low as reasonably achievable to obtain optimal diagnostic quality images. DICOM format image data is available electro nically for review and comparison. FINDINGS: LOWER LUNGS: The visualized lower lungs are clear. LIVER: Homogeneous density without lesion. There is no dilation of the biliary tree. No calcified gallston es. SPLEEN: Normal size without lesion. PANCREAS: Within normal limits. KIDNEYS: Normal in size and shape. There is no mass, stone or hydronephrosis. ADRENAL GLANDS: Within normal limits. VASCULAR: There is no aortic aneurysm. BOWEL/MESENTERY: Uncomplicated colonic diverticulosis is noted. No acute diverticulitis is noted. ABDOMINAL WALL: Within normal limits. RETROPERITONEUM: There is no lymphadenopathy. BLADDER: No wall thickening or mass. REPRODUCTIVE: Within normal limits. INGUINAL: There is no lymphadenopathy or hernia. MUSCULOSKELETAL: Mild scoliosis and degenerative changes of the lumbar spine are noted. CONCLUSION: 1. Uncomplicated colonic diverticulosis. 2. Mild degenerative changes and scoliosis of the lumbar spine. Tucker Steve MD on August 11, 2017 at 23:16 Board Certified Radiologist. This report was verified electronically.
[2017-08-12] VITALS (7 sets, daily range): BP systolic 104–160; BP diastolic 75–91; PULSE 57–73; RESP 16–18; TEMP 96.8–98.7; O2SAT 96–99
[2017-08-12 01:41] LABS: ALBUMIN 3.1 GM/DL (3.4-5.0); ALKALINE PHOSPHATASE 49 U/L (45-117); ALT (GPT) 17 U/L (12-78); AST (GOT) 7 U/L (15-37); BICARBONATE 27.7 MEQ/L (21.0-32.0); BLOOD UREA NITROGEN 14 MG/DL (7-18); CALCIUM 8.2 MG/DL (8.5-10.1); CHLORIDE 108 MEQ/L (98-107); CREATININE 1.12 MG/DL (0.60-1.30); FREE T4 1.03 NG/DL (0.76-1.46); GLOMERULAR FILTRATION RATE 69 ML/MIN (>89); GLUCOSE,RANDOM 103 MG/DL (74-106); MAGNESIUM 2.4 MG/DL (1.5-2.5); PHOSPHORUS 3.8 MG/DL (2.5-4.9); SODIUM (NA) 141 MEQ/L (136-145); TOTAL BILIRUBIN ADULT 0.3 MG/DL (0.2-1.0); TROPONIN I LESS THAN 0.02 NG/ML (0.02-0.05)
[2017-08-12] MEDS: oxyCODONE/ACETAMINOPHEN 10 MG/325 MG TAB PO PRN ×4 (04:30→23:40)
[2017-08-12 05:20] LABS: BACTERIA, URINE RARE /hpf; BILIRUBIN, URINE NEG (NEG); BLOOD, URINE NEG (NEG); GLUCOSE,URINE NEG (NEG); KETONE, URINE NEG (NEG); MUCUS URINE FEW /lpf (OCC); NITRITE,URINE NEG (NEG); URINE COLOR LIGHT-YELLOW (YELLW/STRAW); URINE LEUKOCYTE ESTERASE NEG (NEG)
[2017-08-12 06:34] LABS: AUTOMATED NEUTROPHIL # 6.3 TH/MM3 (1.8-7.7); BASOPHIL # 0.1 TH/MM3 (0-0.2); EOSINOPHIL # 0.2 TH/MM3 (0-0.4); EOSINOPHIL % 2.1 % (0.0-4.0); LYMPH % 23.5 % (9.0-44.0); LYMPHOCYTE # 2.2 TH/MM3 (1.0-4.8); MEAN CELL VOLUME 95.1 FL (80.0-100.0); MEAN CORPUSCULAR HEMOGLOBIN 32.5 PG (27.0-34.0); MEAN CORPUSCULAR HGB CONC 34.1 % (32.0-36.0); MONO % 7.4 % (0.0-8.0); MONOCYTE # 0.7 TH/MM3 (0-0.9); PLATELET COUNT 268 TH/MM3 (150-450); RED BLOOD COUNT 4.62 MIL/MM3 (4.50-5.90); WHITE BLOOD COUNT 9.5 TH/MM3 (4.0-11.0)
[2017-08-12] MEDS: REMOVE OLD PATCH T-DERMAL SCH (09:00)
[2017-08-12] MEDS: SODIUM CHLORIDE 0.9% FLUSH 10 ML FLUSH IV FLUSH SCH ×2 (09:37→21:35)
[2017-08-12] MEDS: amLODIPine BESYLATE 5 MG TAB PO SCH (09:38)
[2017-08-12] MEDS: guaiFENesin E.R. 600 MG TAB PO SCH ×2 (09:38→21:35)
[2017-08-12] MEDS: LACTOBACILLUS ACIDOPHILUS TAB PO SCH ×3 (09:38→17:33)
[2017-08-12] MEDS: DOCUSATE SODIUM 50 MG/SENNA 8.6 MG TAB PO SCH ×2 (09:38→21:35)
[2017-08-12] MEDS: NICOTINE 14 MG/24 HR PATCH T-DERMAL SCH (09:38)
--- NOTE | 2017-08-12 10:49 | PD.CONS ---
History of Present Illness Service Infectious disease Consult Requested By Dr Abernathy Reason for Consult Evaluate patient with bacteremia Primary Care Physician No Primary Care Physician Diagnoses: History of Present Illness Patient seen and examined. Records reviewed. Patient is a 52-year-old male called into the hospital for evaluation of positive blood culture, from an ED visit last August 06, 2017. During that day he presented with multiple complaints. Patient stated that he has not been feeling well since he was started on epidural injections for his herniated disc. The first epidural injection was summer, and he had a second injection July 30, 2017. [place] include fatigue, generalized malaise. He has had this chronic low back pain from the herniated disc, and he stated that it is constant, but has not really worsened. He also recently has had some midsternal chest pain which is sharp in quality, and it's not really precipitated by a any physical activity. It is not pleuritic. He also has some occasional palpitations. Patient has chronic tobacco abuse, and he has noted increase in his shortness of breath with any kind of exertion. He denies any shortness of breath at rest. He has a chronic dry cough. He has not really seen any physician for any of his problem. He denies any fever or chills or sweats, but admits to having hot and cold spells. He has lost about 15-20 pounds, and could not really tell me over how long appeared of time. His appetite has been fair. Denies any abdominal pain or any other GI complaints. Denies any urinary problem. During his ED visit, there were 2 blood cultures done. He had an elevated WBC at that time at 12,000, but he was afebrile. The chest x-ray at that time showed emphysematous changes. The blood culture came out positive, so the patient was called in to come to the hospital for further management. Patient stated that all her symptoms have been stable, but has not resolved or worsen. On this admission, patient underwent CT of the abdomen and pelvis which just showed evidence of diverticulosis. CT of the chest is showing severe emphysematous changes and there was a nodule seen. Chest x-ray stable. His WBC is normal. He is afebrile. 2 blood cultures were done and those are still pending. Infectious disease consultation has been requested to make recommendation regarding the positive blood culture. Review of Systems Constitutional: COMPLAINS OF: Fatigue, Weight loss, DENIES: Fever, Chills, Change in appetite Endocrine: DENIES: Polyuria Eyes: DENIES: Blurred vision, Eye pain Ears, nose, mouth, throat: DENIES: Nasal discharge, Oral lesions, Throat pain, Hoarseness, Ear Pain Respiratory: COMPLAINS OF: Cough, Shortness of breath, DENIES: Hemoptysis, Sputum production Cardiovascular: COMPLAINS OF: Chest pain, Palpitations, Dyspnea on Exertion, DENIES: Syncope, Lower Extremity Edema, Orthopnea Gastrointestinal: DENIES: Abdominal pain, Constipation, Diarrhea, Nausea, Vomiting, Difficulty Swallowing Genitourinary: DENIES: Urinary frequency, Urinary incontinence, Urgency, Hematuria Musculoskeletal: COMPLAINS OF: Back pain, DENIES: Joint pain, Joint Swelling Integumentary: DENIES: Rash Hematologic/lymphatic: DENIES: Lymphadenopathy Neurologic: DENIES: Headache, Localized weakness Psychiatric: DENIES: Hallucinations Past Family Social History Allergies: Coded Allergies: No Known Allergies (Verified Allergy, Unknown, 08/11/17) Past Medical History Hypertension - just diagnosed 08/06/17 Chronic cough related to chronic tobacco abuse Herniated disc L4-L5 from work related injury summer 2017 Chronic back pain Tobacco abuse Past Surgical History Artificial disc surgery in his neck 2 epidural steroid injections in his lower back - first before 2016 , Jul 30, 2017 Reported Medications I attest that I obtained, updated or reviewed the home and current medications. Reported Meds & Active Scripts Active Norvasc (Amlodipine Besylate) 5 Mg Tab 5 Mg PO DAILY Active Ordered Medications Current Medications Medications (Trade) Dose Ordered Sig/Caitlyn Route Start Time Stop Time Status Last Admin (NS Flush) 2 ml UNSCH PRN IV FLUSH 08/11/17 16:45 (NS Flush) 2 ml BID IV FLUSH 08/11/17 21:00 08/12/17 09:37 (Tylenol) 650 mg Q4H PRN PO 08/11/17 16:45 (Zofran Inj) 4 mg Q6H PRN IVP 08/11/17 16:45 (Reglan Inj) 5 mg Q6H PRN IV PUSH 08/11/17 16:45 (Ambien) 5 mg HS PRN PO 08/11/17 16:45 (Tylenol) 650 mg Q6H PRN PO 08/11/17 16:45 (Percocet 5-325 Mg) 1 tab Q6H PRN PO 08/11/17 16:45 (Percocet 10-325 Mg) 1 tab Q6H PRN PO 08/11/17 16:45 08/12/17 04:30 (Morphine Inj) 2 mg Q3H PRN IV PUSH 08/11/17 16:45 (Morphine Inj) 4 mg Q3H PRN IV PUSH 08/11/17 16:45 (Morphine Inj) 4 mg Q1H PRN IV PUSH 08/11/17 16:45 (Morphine Inj) 4 mg Q3H PRN IV PUSH 08/11/17 16:45 (Narcan Inj) 0.4 mg UNSCH PRN IV PUSH 08/11/17 16:45 (Hilda-Colace) 1 tab BID PO 08/11/17 21:00 08/12/17 09:38 (Milk Of Magnesia Liq) 30 ml Q12H PRN PO 08/11/17 16:45 (Senokot) 17.2 mg Q12H PRN PO 08/11/17 16:45 (Dulcolax Supp) 10 mg DAILY PRN RECTAL 08/11/17 16:45 (Lactulose Liq) 30 ml DAILY PRN PO 08/11/17 16:45 (Habitrol 14 Mg Patch.24 Hr) 1 patch DAILY T-DERMAL 08/12/17 09:00 08/12/17 09:38 Miscellaneous Information 1 DAILY T-DERMAL 08/12/17 09:00 08/12/17 09:00 (Duoneb Neb) 1 ampule Q4HR NEB PRN NEB 08/11/17 16:45 (Mucinex Er) 600 mg BID PO 08/11/17 21:00 08/12/17 09:38 (Pepcid) 20 mg HS PO 08/11/17 21:00 08/11/17 22:23 (Lactinex) 1 tab TID PO 08/11/17 18:00 08/12/17 09:38 (Norvasc) 5 mg DAILY PO 08/12/17 09:00 08/12/17 09:38 (Catapres) 0.1 mg Q4H PRN PO 08/11/17 17:30 Family History Noncontributory to current ID problem Social History Tobacco abuse at least a pack daily Drink about 12 pack of iced tea with ETOH Denies any illicit drug use Not working due to restrictions related to his herniated discs - used to work in maintenance Physical Exam Vital Signs Vital Signs Date Time Temp Pulse Resp B/P (MAP) Pulse Ox O2 Delivery O2 Flow Rate FiO2 08/12/17 09:47 99 08/12/17 08:00 98.7 62 17 131/78 (95) 97 08/12/17 04:00 96.8 65 16 104/79 (87) 99 08/12/17 00:00 96.9 59 16 118/76 (90) 98 08/12/17 00:00 57 08/11/17 20:01 98 21 08/11/17 20:00 96.4 73 16 112/78 (89) 97 08/11/17 20:00 75 08/11/17 16:30 98.3 83 18 164/87 (112) 98 08/11/17 15:02 69 16 131/77 (95) 100 Room Air 08/11/17 11:46 97.5 83 18 136/92 (107) 93 Room Air Physical Exam GENERAL: Patient is a thin, well-developed patient, awake and alert, not in respiratory distress. SKIN: Warm and dry. No generalized rash, no ecchymoses and no evidence of embolic lesions. HEAD: Atraumatic. Normocephalic. No temporal wasting, or tenderness. EYES: [place] conjunctiva. No petechia or hemorrhage. Pupils equal, round and reactive to light. Extraocular movements full and intact. No scleral icterus. No injection or drainage. EARS, NOSE AND THROAT: Nose without bleeding or purulent nasal discharge. No sinus tenderness. Mucous membranes pink and moist. No oral lesions noted. Has very poor dentition. NECK: Trachea midline. Supple and not tender, no meningeal signs. No lymphadenopathy. CARDIOVASCULAR: Regular rate and rhythm. No murmurs, rubs or gallops heard RESPIRATORY: Decreased breath sounds on the L lung field, has wheezing on R side. NO E to A changes. No rales. No costochondral tenderness ABDOMEN: Soft, flat, non-tender, nondistended. Bowel sounds present and normoactive. No guarding. No rebound. No organomegaly. EXTREMITIES: No clubbing, cyanosis, or edema. No joint effusion, has good ROM. No calf tenderness. Well perfused and warm. NEUROLOGICAL: Awake and alert. Cranial nerves grossly intact. Motor grossly within normal limits. PSYCHIATRIC: Normal affect, calm and cooperative. LINE: No evidence of infection Laboratory Laboratory Tests Test 08/11/17 12:30 08/11/17 18:30 08/12/17 00:47 08/12/17 04:40 White Blood Count 10.4 Red Blood Count 4.99 Hemoglobin 16.3 Hematocrit 47.2 Mean Corpuscular Volume 94.5 Mean Corpuscular Hemoglobin 32.6 Mean Corpuscular Hemoglobin Concent 34.5 Red Cell Distribution Width 14.2 Platelet Count 305 Mean Platelet Volume 7.8 Neutrophils (%) (Auto) 67.7 Lymphocytes (%) (Auto) 23.3 Monocytes (%) (Auto) 6.7 Eosinophils (%) (Auto) 1.4 Basophils (%) (Auto) 0.9 Neutrophils # (Auto) 7.1 Lymphocytes # (Auto) 2.4 Monocytes # (Auto) 0.7 Eosinophils # (Auto) 0.1 Basophils # (Auto) 0.1 CBC Comment DIFF FINAL Differential Comment Blood Urea Nitrogen 13 14 Creatinine 1.19 1.12 Random Glucose 86 103 Total Protein 7.4 6.0 Albumin 3.9 3.1 Calcium Level 9.5 8.2 Alkaline Phosphatase 66 49 Aspartate Amino Transf (AST/SGOT) 10 7 Alanine Aminotransferase (ALT/SGPT) 21 17 Total Bilirubin 0.4 0.3 Sodium Level 138 141 Potassium Level 3.8 4.4 Chloride Level 105 108 Carbon Dioxide Level 26.0 27.7 Anion Gap 7 5 Estimat Glomerular Filtration Rate 64 69 Total Creatine Kinase 38 35 Troponin I LESS THAN 0.02 LESS THAN 0.02 Phosphorus Level 3.8 Magnesium Level 2.4 Free Thyroxine 1.03 Thyroid Stimulating Hormone 3rd Gen 3.300 Urine Color LIGHT-YELLOW Urine Turbidity CLEAR Urine pH 6.0 Urine Specific [place] 1.022 Urine Protein NEG Urine Glucose (UA) NEG Urine Ketones NEG Urine Occult Blood NEG Urine Nitrite NEG Urine Bilirubin NEG Urine Urobilinogen LESS THAN 2.0 Urine Leukocyte Esterase NEG Urine Bacteria RARE Urine Mucus FEW Microscopic Urinalysis Comment CULT NOT INDICATED Test 08/12/17 05:40 White Blood Count 9.5 Red Blood Count 4.62 Hemoglobin 15.0 Hematocrit 44.0 Mean Corpuscular Volume 95.1 Mean Corpuscular Hemoglobin 32.5 Mean Corpuscular Hemoglobin Concent 34.1 Red Cell Distribution Width 14.0 Platelet Count 268 Mean Platelet Volume 8.0 Neutrophils (%) (Auto) 66.0 Lymphocytes (%) (Auto) 23.5 Monocytes (%) (Auto) 7.4 Eosinophils (%) (Auto) 2.1 Basophils (%) (Auto) 1.0 Neutrophils # (Auto) 6.3 Lymphocytes # (Auto) 2.2 Monocytes # (Auto) 0.7 Eosinophils # (Auto) 0.2 Basophils # (Auto) 0.1 CBC Comment DIFF FINAL Differential Comment Date/Time Source Procedure Growth Status 08/11/17 12:30 Blood Peripheral Aerobic Blood Culture Pending Received 08/11/17 12:30 Blood Peripheral Anaerobic Blood Culture Pending Received 08/11/17 12:30 Nasal Washing Influenza Types A,B Antigen (JESSICA) - Final NEGATIVE FOR FLU A AND B ANTIGEN.... Complete Result Diagram: 08/12/17 0540 08/12/17 0047 Imaging RADIOLOGY STUDIES/FILMS REVIEWED Chest X-Ray 08/11/17 1643 Signed Impressions: Service Date/Time: Friday, August 11, 2017 20:34 - CONCLUSION: Scattered emphysematous changes. Mild degenerative changes and scoliosis of the thoracic spine. Otherwise unremarkable chest. Tucker Steve MD Chest CT 08/11/17 0000 Signed Impressions: Service Date/Time: Friday, August 11, 2017 20:40 - CONCLUSION: 1. Scattered emphysematous changes. 2. 6 mm noncalcified nodule within the left mid lung field which is indeterminate. Followup CT of the chest in 6 months is recommended to confirm stability. 3. Biapical fibrotic scarring. 4. Mild degenerative changes and scoliosis of the thoracic spine. Tucker Steve MD Abdomen/Pelvis CT 08/11/17 0000 Signed Impressions: Service Date/Time: Friday, August 11, 2017 20:40 - CONCLUSION: 1. Uncomplicated colonic diverticulosis. 2. Mild degenerative changes and scoliosis of the lumbar spine. Tucker Steve MD Assessment and Plan Assessment and Plan IMPRESSION Bacteremia with 2 different Coag Neg Staph c/w contamination Etiology of multiple complaints, ?related to his severe lung disease Clinically no evidence of endocarditis Herniated disc L4-L5 with chronic back pain, getting epidural injections, has not improved Hypertension - just started on Rx Aug 06, 2017 RECOMMENDATION Stop Abx Patient being evaluated by [facility] From ID standpoint, he can be D/C anytime I will sign off Please call if you have any new ID issue or question Thank you for this consultation Discussed Condition With Explained plan to patient and Linda Cheney MD Aug 12, 2017 10:48
[2017-08-12] MEDS ORDERED: LEVOFLOXACIN 500 MG PREMIX INJ 100 ML IV SCH (15:00)
[2017-08-12 15:58] LABS: HEMOGLOBIN A1C 5.6 % (4.3-6.0)
--- NOTE | 2017-08-12 17:09 | HHI.PR ---
Subjective Remarks Patient denies any major complaints. However c/o BRBPR intermittently with last episode 2 weeks ago. Significant weight loss denies cp, sob occasional cough Objective Vitals Vital Signs Date Time Temp Pulse Resp B/P (MAP) Pulse Ox O2 Delivery O2 Flow Rate FiO2 08/12/17 16:00 97.9 73 18 160/91 (114) 98 08/12/17 12:00 96.9 64 17 133/75 (94) 98 08/12/17 09:47 99 08/12/17 08:00 98.7 62 17 131/78 (95) 97 08/12/17 04:00 96.8 65 16 104/79 (87) 99 08/12/17 00:00 96.9 59 16 118/76 (90) 98 08/12/17 00:00 57 08/11/17 20:01 98 21 08/11/17 20:00 96.4 73 16 112/78 (89) 97 08/11/17 20:00 75 I/O 08/11/17 08/11/17 08/11/17 08/12/17 08/12/17 08/12/17 07:00 15:00 23:00 07:00 15:00 23:00 Intake Total 1150 ml 480 ml Balance 1150 ml 480 ml Intake Oral 480 ml IV Total 1150 ml # Voids 2 Result Diagram: 08/12/17 0540 08/12/17 0047 Imaging Last Impressions Chest X-Ray 08/11/17 1643 Signed Impressions: Service Date/Time: Friday, August 11, 2017 20:34 - CONCLUSION: Scattered emphysematous changes. Mild degenerative changes and scoliosis of the thoracic spine. Otherwise unremarkable chest. Tucker Steve MD Chest CT 08/11/17 0000 Signed Impressions: Service Date/Time: Friday, August 11, 2017 20:40 - CONCLUSION: 1. Scattered emphysematous changes. 2. 6 mm noncalcified nodule within the left mid lung field which is indeterminate. Followup CT of the chest in 6 months is recommended to confirm stability. 3. Biapical fibrotic scarring. 4. Mild degenerative changes and scoliosis of the thoracic spine. Tucker Steve MD Abdomen/Pelvis CT 08/11/17 0000 Signed Impressions: Service Date/Time: Friday, August 11, 2017 20:40 - CONCLUSION: 1. Uncomplicated colonic diverticulosis. 2. Mild degenerative changes and scoliosis of the lumbar spine. Tucker Steve MD Objective Remarks AAOx3 Very thin nad Decreased breath sounds BL, no wheezing or rhonchi Abdomen soft, non tender, non distended, no masses palapable no testicular masses noted on exam no cervical, inguinal, axilary lymphadenopathy palpated. No edema in lower extremities Medications and IVs Current Medications Medications (Trade) Dose Ordered Sig/Caitlyn Route Start Time Stop Time Status Last Admin (NS Flush) 2 ml UNSCH PRN IV FLUSH 08/11/17 16:45 (NS Flush) 2 ml BID IV FLUSH 08/11/17 21:00 08/12/17 09:37 (Tylenol) 650 mg Q4H PRN PO 08/11/17 16:45 (Zofran Inj) 4 mg Q6H PRN IVP 08/11/17 16:45 (Reglan Inj) 5 mg Q6H PRN IV PUSH 08/11/17 16:45 (Ambien) 5 mg HS PRN PO 08/11/17 16:45 (Tylenol) 650 mg Q6H PRN PO 08/11/17 16:45 (Percocet 5-325 Mg) 1 tab Q6H PRN PO 08/11/17 16:45 (Percocet 10-325 Mg) 1 tab Q6H PRN PO 08/11/17 16:45 08/12/17 11:24 (Morphine Inj) 2 mg Q3H PRN IV PUSH 08/11/17 16:45 (Morphine Inj) 4 mg Q3H PRN IV PUSH 08/11/17 16:45 (Morphine Inj) 4 mg Q1H PRN IV PUSH 08/11/17 16:45 (Morphine Inj) 4 mg Q3H PRN IV PUSH 08/11/17 16:45 (Narcan Inj) 0.4 mg UNSCH PRN IV PUSH 08/11/17 16:45 (Hilda-Colace) 1 tab BID PO 08/11/17 21:00 08/12/17 09:38 (Milk Of Magnesia Liq) 30 ml Q12H PRN PO 08/11/17 16:45 (Senokot) 17.2 mg Q12H PRN PO 08/11/17 16:45 (Dulcolax Supp) 10 mg DAILY PRN RECTAL 08/11/17 16:45 (Lactulose Liq) 30 ml DAILY PRN PO 08/11/17 16:45 (Habitrol 14 Mg Patch.24 Hr) 1 patch DAILY T-DERMAL 08/12/17 09:00 08/12/17 09:38 Miscellaneous Information 1 DAILY T-DERMAL 08/12/17 09:00 08/12/17 09:00 (Duoneb Neb) 1 ampule Q4HR NEB PRN NEB 08/11/17 16:45 (Mucinex Er) 600 mg BID PO 08/11/17 21:00 08/12/17 09:38 (Pepcid) 20 mg HS PO 08/11/17 21:00 08/11/17 22:23 (Lactinex) 1 tab TID PO 08/11/17 18:00 08/12/17 09:38 (Norvasc) 5 mg DAILY PO 08/12/17 09:00 08/12/17 09:38 (Catapres) 0.1 mg Q4H PRN PO 08/11/17 17:30 Urinary Catheter: No Vascular Central Line Catheter: No A/P Problem List: (1) Weight loss ICD Code: R63.4 - Abnormal weight loss Status: Acute Plan: The patient complains of a weight loss of approximately 15-20 pounds in the past 2 months. He states weight loss is unintentional. Upon further questioning the patient states that he has had an injury in his back for which he has had severe pain which radiates down to his right leg. Patient states he saw Dr. Ruiz who took her look at MRIs done as an outpatient and cleared him to go back to work with restrictions. Patient has had a CT of the chest, abdomen and pelvis. CT chest shows scattered emphysematous changes. 2.6 mm noncalcified nodule within the left midlung field which is indeterminate. Follow-up CT of the chest in 6 months is recommended to confirm stability. By apical fibrotic scaring. Mild degenerative changes and a scoliosis of the thoracic spine. CT abdomen shows unconjugated colonic diverticulosis. Mild degenerative changes and a scoliosis of the lumbar spine. Patient also complains of some difficulty swallowing especially solids. Given the patient's heavy smoker and drinks alcohol, I will order a barium swallow. (2) Dysphagia ICD Code: R13.10 - Dysphagia, unspecified Plan: Check barium swallow (3) Severe protein-calorie malnutrition ICD Code: E43 - Unspecified severe protein-calorie malnutrition Plan: Patient had a weight loss of 20 pounds over the past couple months. BMI 16.4. I will order dietitian consult. (4) Positive blood cultures ICD Code: R78.81 - Bacteremia Plan: ID consulted. Blood cultures positive likely secondary to contamination. Repeat blood cultures negative 1 day. (5) Intermittent claudication ICD Code: I73.9 - Peripheral vascular disease, unspecified Plan: Patient complains of burning in one walking for which she has to stop and then pain goes away. I will order an ankle brachial index to rule out intermittent catheterization and peripheral vascular disease which this patient is a very high risk for due to heavy smoking. (6) Tobacco abuse ICD Code: Z72.0 - Tobacco use Status: Acute Plan: The patient smokes one pack per day. Advised cessation. Will order nicotine patch. (7) Emphysema of lung ICD Code: J43.9 - Emphysema, unspecified Status: Acute Plan: AP of the chest which has been reviewed by me shows changes consistent with emphysema. Will place patient on Symbicort, DuoNeb treatments, albuterol abdomen discharge and will order pulmonary function test. not an exacerbation at this moment. Assessment and Plan DVT prophylaxis: Encourage ambulation. SCDs while in bed. Discharge Planning Continue to monitor in the medical floor. Problem Qualifiers (1) Dysphagia: Qualified Codes: R13.10 - Dysphagia, unspecified (2) Emphysema of lung: Qualified Codes: J43.9 - Emphysema, unspecified Ildefonso Mercado MD Aug 12, 2017 17:09
[2017-08-12] MEDS ORDERED: RESP: ALBUTEROL 2.5 MG/IPRATROPIUM 0.5 MG NEB (PRN) NEB (17:15)
[2017-08-12] MEDS: RESP: ALBUTEROL 2.5 MG/IPRATROPIUM 0.5 MG NEB (SCH) NEB (20:35)
[2017-08-12] MEDS: BUDESONIDE-FORMOTEROL 160/4.5 MCG INHALER INH SCH (21:00)
[2017-08-12] MEDS: FAMOTIDINE 20 MG TAB PO SCH (21:35)
[2017-08-13] VITALS (7 sets, daily range): BP systolic 123–160; BP diastolic 75–95; PULSE 60–70; RESP 17–18; TEMP 95.9–98.4; O2SAT 96–99
--- NOTE | 2017-08-13 00:49 | EKG ---
Date Performed: 08/11/2017 Time Performed: 18:57:53 PTAGE: 52 years EKG: Sinus rhythm NORMAL ECG PREVIOUS TRACING : 08/06/2017 16.21 Since the prior tracing, there has been no significant oconnell DOCTOR: Mingo Brandt Interpretating Date/Time 08/13/2017 00:48:44
[2017-08-13 04:59] LABS: PSA, FREE 0.1 ng/mL
[2017-08-13] MEDS: SODIUM CHLORIDE 0.9% FLUSH 10 ML FLUSH IV FLUSH SCH ×2 (08:38→20:04)
[2017-08-13] MEDS: BUDESONIDE-FORMOTEROL 160/4.5 MCG INHALER INH SCH ×2 (08:38→20:10)
[2017-08-13] MEDS: amLODIPine BESYLATE 5 MG TAB PO SCH (08:38)
[2017-08-13] MEDS: LACTOBACILLUS ACIDOPHILUS TAB PO SCH ×3 (08:38→18:34)
[2017-08-13] MEDS: guaiFENesin E.R. 600 MG TAB PO SCH ×2 (08:38→20:04)
[2017-08-13] MEDS: DOCUSATE SODIUM 50 MG/SENNA 8.6 MG TAB PO SCH ×2 (08:38→20:04)
[2017-08-13] MEDS: REMOVE OLD PATCH T-DERMAL SCH (08:39)
[2017-08-13] MEDS: NICOTINE 14 MG/24 HR PATCH T-DERMAL SCH (08:39)
[2017-08-13] MEDS: RESP: ALBUTEROL 2.5 MG/IPRATROPIUM 0.5 MG NEB (SCH) NEB ×2 (08:41→19:26)
[2017-08-13] MEDS ORDERED: amLODIPine BESYLATE 5 MG TAB PO ONE (09:45)
--- NOTE | 2017-08-13 10:40 | RADRPT ---
EXAM DATE/TIME: 08/13/2017 09:16 [place] COMPARISON: No previous studies available for comparison. INDICATIONS : Patient states he has trouble swallowing and feels tightness through neck area when swallowing. He s tates he has to really focus when swallowing because it feels that the food may get stuck. Symptoms f or two weeks. FLUORO TIME: 1.4 minutes IMAGE COUNT: 13 CONTRAST: 1. E-Z HD Barium Sulfate (98% w/w) 2. Liquid E-Z Paque Barium Sulfate (60% w/v, 41% w.w) MEDICAL HISTORY : Hypertension. SURGICAL HISTORY : Fusion, cervical. ENCOUNTER: Initial ACUITY: 2 weeks PAIN SCORE: 0/10 LOCATION: Esophagus FINDINGS: Air-contrast views of the hypopharynx demonstrate a normal mucosal surface without filling defect. R apid sequence images of the hypopharynx and cervical esophagus during the passage of barium demonstra te a normal swallowing function. No evidence of aspiration. Multiphasic examination of the esophagu s demonstrates no esophageal fold thickening, ulceration, or filling defect. There is a small reducib le hiatal hernia. The patient is noted to be status post lower cervical fusion at the C5-6 level. CONCLUSION: 1. Small reducible hiatal hernia. 2. Status post lower cervical fusion. Reza Diaz MD on August 13, 2017 at 10:36 Board Certified Radiologist. This report was verified electronically.
[2017-08-13] MEDS: oxyCODONE/ACETAMINOPHEN 10 MG/325 MG TAB PO PRN (12:11)
--- NOTE | 2017-08-13 14:16 | HHI.PR ---
Subjective Remarks Patient c/o back pain Denies fevers or chills BP elevated this am. Objective Vitals Vital Signs Date Time Temp Pulse Resp B/P (MAP) Pulse Ox O2 Delivery O2 Flow Rate FiO2 08/13/17 12:00 98.4 69 17 146/81 (102) 99 08/13/17 08:44 98 08/13/17 08:00 96.3 60 17 160/85 (110) 99 08/13/17 04:00 96.5 70 18 123/75 (91) 96 08/13/17 00:00 97.4 61 18 125/75 (92) 97 08/12/17 20:00 98.3 72 18 152/82 (105) 96 08/12/17 16:00 97.9 73 18 160/91 (114) 98 I/O 08/12/17 08/12/17 08/12/17 08/13/17 08/13/17 08/13/17 07:00 15:00 23:00 07:00 15:00 23:00 Intake Total 480 ml 780 ml Balance 480 ml 780 ml Intake Oral 480 ml 780 ml # Voids 2 3 3 # Bowel Movements 0 0 Result Diagram: 08/12/17 0540 08/12/17 0047 Imaging Last Impressions Barium Swallow X-Ray 08/13/17 0000 Signed Impressions: Service Date/Time: Sunday, August 13, 2017 09:16 - CONCLUSION: 1. Small reducible hiatal hernia. 2. Status post lower cervical fusion. Reza Diaz MD Chest X-Ray 08/11/17 1643 Signed Impressions: Service Date/Time: Friday, August 11, 2017 20:34 - CONCLUSION: Scattered emphysematous changes. Mild degenerative changes and scoliosis of the thoracic spine. Otherwise unremarkable chest. Tucker Steve MD Chest CT 08/11/17 0000 Signed Impressions: Service Date/Time: Friday, August 11, 2017 20:40 - CONCLUSION: 1. Scattered emphysematous changes. 2. 6 mm noncalcified nodule within the left mid lung field which is indeterminate. Followup CT of the chest in 6 months is recommended to confirm stability. 3. Biapical fibrotic scarring. 4. Mild degenerative changes and scoliosis of the thoracic spine. Tucker Steve MD Abdomen/Pelvis CT 08/11/17 0000 Signed Impressions: Service Date/Time: Friday, August 11, 2017 20:40 - CONCLUSION: 1. Uncomplicated colonic diverticulosis. 2. Mild degenerative changes and scoliosis of the lumbar spine. Tucker Steve MD Objective Remarks AAOx3 Very thin nad Decreased breath sounds BL, no wheezing or rhonchi Abdomen soft, non tender, non distended, no masses palapable no testicular masses noted on exam no cervical, inguinal, axilary lymphadenopathy palpated. No edema in lower extremities Medications and IVs Current Medications Medications (Trade) Dose Ordered Sig/Caitlyn Route Start Time Stop Time Status Last Admin (NS Flush) 2 ml UNSCH PRN IV FLUSH 08/11/17 16:45 (NS Flush) 2 ml BID IV FLUSH 08/11/17 21:00 08/13/17 08:38 (Tylenol) 650 mg Q4H PRN PO 08/11/17 16:45 (Zofran Inj) 4 mg Q6H PRN IVP 08/11/17 16:45 (Reglan Inj) 5 mg Q6H PRN IV PUSH 08/11/17 16:45 (Ambien) 5 mg HS PRN PO 08/11/17 16:45 (Tylenol) 650 mg Q6H PRN PO 08/11/17 16:45 (Percocet 5-325 Mg) 1 tab Q6H PRN PO 08/11/17 16:45 (Percocet 10-325 Mg) 1 tab Q6H PRN PO 08/11/17 16:45 08/13/17 12:11 (Morphine Inj) 2 mg Q3H PRN IV PUSH 08/11/17 16:45 (Morphine Inj) 4 mg Q3H PRN IV PUSH 08/11/17 16:45 (Morphine Inj) 4 mg Q1H PRN IV PUSH 08/11/17 16:45 (Morphine Inj) 4 mg Q3H PRN IV PUSH 08/11/17 16:45 (Narcan Inj) 0.4 mg UNSCH PRN IV PUSH 08/11/17 16:45 (Hilda-Colace) 1 tab BID PO 08/11/17 21:00 08/13/17 08:38 (Milk Of Magnesia Liq) 30 ml Q12H PRN PO 08/11/17 16:45 (Senokot) 17.2 mg Q12H PRN PO 08/11/17 16:45 (Dulcolax Supp) 10 mg DAILY PRN RECTAL 08/11/17 16:45 (Lactulose Liq) 30 ml DAILY PRN PO 08/11/17 16:45 (Habitrol 14 Mg Patch.24 Hr) 1 patch DAILY T-DERMAL 08/12/17 09:00 08/13/17 08:39 Miscellaneous Information 1 DAILY T-DERMAL 08/12/17 09:00 08/13/17 08:39 (Duoneb Neb) 1 ampule Q4HR NEB PRN NEB 08/11/17 16:45 (Mucinex Er) 600 mg BID PO 08/11/17 21:00 08/13/17 08:38 (Pepcid) 20 mg HS PO 08/11/17 21:00 08/12/17 21:35 (Lactinex) 1 tab TID PO 08/11/17 18:00 08/13/17 12:09 (Catapres) 0.1 mg Q4H PRN PO 08/11/17 17:30 (Symbicort 160-4.5 Mcg Inh) 2 puff Q12HR INH 08/12/17 21:00 08/13/17 08:38 (Duoneb Neb) 1 ampule Q6HR WHILE AWAKE NEB NEB 08/12/17 20:00 08/13/17 08:41 (Duoneb Neb) 1 ampule Q2HR NEB PRN NEB 08/12/17 17:15 (Norvasc) 10 mg DAILY PO 08/14/17 09:00 Urinary Catheter: No Vascular Central Line Catheter: No A/P Problem List: (1) Weight loss ICD Code: R63.4 - Abnormal weight loss Status: Acute (2) Dysphagia ICD Code: R13.10 - Dysphagia, unspecified (3) Severe protein-calorie malnutrition ICD Code: E43 - Unspecified severe protein-calorie malnutrition (4) Positive blood cultures ICD Code: R78.81 - Bacteremia (5) Intermittent claudication ICD Code: I73.9 - Peripheral vascular disease, unspecified (6) Tobacco abuse ICD Code: Z72.0 - Tobacco use Status: Acute (7) Emphysema of lung ICD Code: J43.9 - Emphysema, unspecified Status: Acute Assessment and Plan (1) Weight loss ICD Code: R63.4 - Abnormal weight loss Status: Acute Plan: The patient complains of a weight loss of approximately 15-20 pounds in the past 2 months. He states weight loss is unintentional. Upon further questioning the patient states that he has had an injury in his back for which he has had severe pain which radiates down to his right leg. Patient states he saw Dr. Ruiz who took her look at MRIs done as an outpatient and cleared him to go back to work with restrictions. Patient has had a CT of the chest, abdomen and pelvis. CT chest shows scattered emphysematous changes. 2.6 mm noncalcified nodule within the left midlung field which is indeterminate. Follow-up CT of the chest in 6 months is recommended to confirm stability. By apical fibrotic scaring. Mild degenerative changes and a scoliosis of the thoracic spine. CT abdomen shows unconjugated colonic diverticulosis. Mild degenerative changes and a scoliosis of the lumbar spine. Patient also complains of some difficulty swallowing especially solids. Given the patient's heavy smoker and drinks alcohol, 08/13 barium swallow showed a small reducible hiatal hernia. Report states that this is a normal mucosal surface without filling defect. Appreciate GI consultation. The patient is for EGD and colonoscopy in a.m. (2) Dysphagia ICD Code: R13.10 - Dysphagia, unspecified Plan: Barium swallow as above. (3) Severe protein-calorie malnutrition ICD Code: E43 - Unspecified severe protein-calorie malnutrition Plan: Patient had a weight loss of 20 pounds over the past couple months. BMI 16.4. 08/13 Dietitian consulted- recommendations pending. (4) Positive blood cultures ICD Code: R78.81 - Bacteremia Plan: ID consulted. Blood cultures positive likely secondary to contamination. Repeat blood cultures negative 2. (5) Intermittent claudication ICD Code: I73.9 - Peripheral vascular disease, unspecified Plan: Patient complains of burning in one walking for which she has to stop and then pain goes away. I will order an ankle brachial index to rule out intermittent catheterization and peripheral vascular disease which this patient is a very high risk for due to heavy smoking. 08/13 MEHRDAD reports significant reduction of left MEHRDAD with moderate reduction of the right MEHRDAD. Consult vascular surgery. Discussed the case with Dr Logan who will see the patient. (6) Tobacco abuse ICD Code: Z72.0 - Tobacco use Status: Acute Plan: The patient smokes one pack per day. Advised cessation. On Nicotine patch (7) Emphysema of lung ICD Code: J43.9 - Emphysema, unspecified Status: Acute Plan: AP of the chest which has been reviewed by me shows changes consistent with emphysema. Will place patient on Symbicort, DuoNeb treatments, albuterol abdomen discharge and will order pulmonary function test. not an exacerbation at this moment. DVT prophylaxis: Encourage ambulation. SCDs while in bed. Discharge Planning Patient for EGD and colonoscopy in a.m. [facility] surgery consulted for abnormal MEHRDAD. Problem Qualifiers (1) Dysphagia: Qualified Codes: R13.10 - Dysphagia, unspecified (2) Emphysema of lung: Qualified Codes: J43.9 - Emphysema, unspecified Ildefonso Mercado MD Aug 13, 2017 14:16
[2017-08-13] MEDS ORDERED: PEG (High)/E-LYTE SOLN 4000 ML BTL PO ONE ×2 (15:00→16:00)
--- NOTE | 2017-08-13 15:11 | RADRPT ---
EXAM DATE/TIME: 08/12/2017 00:00 [facility] COMPARISON: No previous studies available for comparison. INDICATIONS : Bilateral Lower Extremity Pain, PVD TECHNIQUE: Four-cuff ankle and brachial pressures were obtained. Pulse cuff waveform tracings of the ankles were recorded, and ankle-brachial indices were calculated. PRESSURES (mmHg): Brachial (arm): Right IV SITE Left 167 Ankle: Right 134 Left 111 MEHRDAD: Right 0.80 Left 0.66 TBI: Right 0.00 Left 0.62 PULSED CUFF WAVEFORMS: Unable to obtain a right toe pressure. Biphasic waveforms at the ankles bilaterally. CONCLUSION: Significant reduction of left MEHRDAD with moderate reduction of the right MEHRDAD. Pablo Alonso Jr., MD on August 13, 2017 at 15:03 Board Certified Radiologist. This report was verified electronically.
--- NOTE | 2017-08-13 16:05 | PD.CONS ---
HPI History of Present Illness This is a 52 year old male who originally presented b/c he thought he was having a heart attack, was subsequently discharged and then called to come back for pos blood cultures. GI has been consulted for weight loss, dysphagia, BRBPR. Pt has lost 20 lbs in the last 2-3 months. He is admittedly inactive, out of work on workers comp for back injury. He has had intermittent infrequent BRBPR for years, last episode 2 weeks ago and copious bright red blood filling bowl. He has also had bolus sensation and difficulty getting food down for last 3 weeks. No difficulty with liquid. No regurgitation or painful swallowing. Denies abd pain, n/v, reflux, diarrhea. Never had EGD or colonoscopy. (Alma Maurice) PFSH Past Medical History Hypertension Chronic neck pain Chronic back pain since injury to his back Tobacco abuse Past Surgical History Artificial disc surgery in his neck Multiple epidural steroid injections in his lower back (Alma Maurice) Coded Allergies: No Known Allergies (Verified Allergy, Unknown, 08/11/17) Family History Mother with heart disease had bypass surgery at age 35 Father at 54 from prostate cancer Social History Tobacco abuse at least a pack daily Occasional alcoholic beverage Denies any illicits (Alma Maurice) Review of Systems Constitutional: COMPLAINS OF: Fatigue, Weight loss, DENIES: Fever Eyes: DENIES: Blurred vision Ears, nose, mouth, throat: DENIES: Hearing loss Respiratory: DENIES: Cough Cardiovascular: DENIES: Chest pain Gastrointestinal: COMPLAINS OF: Bloody stools, DENIES: Abdominal pain, Black stools, Diarrhea, Nausea, Vomiting, Odynophagia, Hematemesis Genitourinary: DENIES: Hematuria Musculoskeletal: DENIES: Joint Swelling Integumentary: DENIES: Pruritus Hematologic/lymphatic: DENIES: Bruising Neurologic: DENIES: Abnormal gait Psychiatric: DENIES: Confusion (Alma Maurice) GI Exam Vitals I&O Vital Signs Date Time Temp Pulse Resp B/P (MAP) Pulse Ox O2 Delivery O2 Flow Rate FiO2 08/13/17 12:00 98.4 69 17 146/81 (102) 99 08/13/17 08:44 98 08/13/17 08:00 96.3 60 17 160/85 (110) 99 08/13/17 04:00 96.5 70 18 123/75 (91) 96 08/13/17 00:00 97.4 61 18 125/75 (92) 97 08/12/17 20:00 98.3 72 18 152/82 (105) 96 08/12/17 16:00 97.9 73 18 160/91 (114) 98 I/O 08/12/17 08/12/17 08/12/17 08/13/17 08/13/17 08/13/17 06:59 14:59 22:59 06:59 14:59 22:59 Intake Total 480 ml 780 ml Balance 480 ml 780 ml Intake Oral 480 ml 780 ml # Voids 2 3 3 # Bowel Movements 0 0 Imaging Last Impressions Barium Swallow X-Ray 08/13/17 0000 Signed Impressions: Service Date/Time: Sunday, August 13, 2017 09:16 - CONCLUSION: 1. Small reducible hiatal hernia. 2. Status post lower cervical fusion. Reza Diaz MD Chest X-Ray 08/11/17 1643 Signed Impressions: Service Date/Time: Friday, August 11, 2017 20:34 - CONCLUSION: Scattered emphysematous changes. Mild degenerative changes and scoliosis of the thoracic spine. Otherwise unremarkable chest. Tucker Steve MD Chest CT 08/11/17 0000 Signed Impressions: Service Date/Time: Friday, August 11, 2017 20:40 - CONCLUSION: 1. Scattered emphysematous changes. 2. 6 mm noncalcified nodule within the left mid lung field which is indeterminate. Followup CT of the chest in 6 months is recommended to confirm stability. 3. Biapical fibrotic scarring. 4. Mild degenerative changes and scoliosis of the thoracic spine. Tuckre Steve MD Abdomen/Pelvis CT 08/11/17 0000 Signed Impressions: Service Date/Time: Friday, August 11, 2017 20:40 - CONCLUSION: 1. Uncomplicated colonic diverticulosis. 2. Mild degenerative changes and scoliosis of the lumbar spine. Tucker Steve MD Laboratory Date/Time Source Procedure Growth Status 08/11/17 12:30 Blood Peripheral Aerobic Blood Culture - Preliminary NO GROWTH IN 2 DAYS Resulted 08/11/17 12:30 Blood Peripheral Anaerobic Blood Culture - Preliminary NO GROWTH IN 2 DAYS Resulted 08/11/17 12:30 Nasal Washing Influenza Types A,B Antigen (JESSICA) - Final NEGATIVE FOR FLU A AND B ANTIGEN.... Complete Physical Examination HEENT: PERRL; normocephalic; atraumatic; no jaundice. CHEST: CTA CARDIAC: RRR ABDOMEN: Soft, nondistended, nontender; no hepatosplenomegaly; bowel sounds are present in all four quadrants. EXTREMITIES: No clubbing, cyanosis, or edema. SKIN: Normal; no rash; no jaundice. ONCOLOGY PATIENT NAVIGATOR: No focal deficits; alert and oriented times three. (Alma Maurice) Assessment and Plan Plan ASSESSMENT - BRBPR - intermittent, last episode 2 weeks ago and copious blood filling bowl. never had EGD or colonoscopy. HH WNL - dysphagia - onset 3 weeks ago, bolus sensation with solid foods - weight loss - unclear etiology, could be r/t inactivity PLAN - EGD & colonoscopy tomorrow - obtain consent - clear liquid diet - NPO after MN - Golytely prep - monitor labs - notify GI of active bleeding - further recs to follow pt seen by myself and Dr Frances and this note is written on his behalf (Alma Maurice) Plan Patient was seen and examined, agree with above-noted,: EGD tomorrow for evaluation of his weight loss rectal bleeding and dysphagia (Zachary Frances MD) Alma Maurice Aug 13, 2017 16:05 Zachary Frances MD Aug 13, 2017 16:28
--- NOTE | 2017-08-13 16:16 | ECHRPT ---
Indication: HYPERTENSIVE HEART DIS CONCLUSIONS Normal left ventricular size. Wall thickness is normal. The left ventricular systolic function is lo w normal with an estimated ejection fraction of 50%. No definite regional wall motion abnormalities. No valvular abnormalities are noted. BP: 131 / 78 HR: 62 Rhythm: Sinus MEASUREMENTS (Male / Female) Normal Values Technical Quality:Poor 2D ECHO LVOT Diameter 2.0 cm Aortic Root Diameter 3.5 cm M-MODE AV Cusp Separation MM 1.9 cm DOPPLER AV Peak Velocity 103.0 cm/s AV Peak Gradient 4.2 mmHg AV Mean Gradient 2.0 mmHg AV Velocity Time Integral 19.1 cm LVOT Peak Velocity 76.0 cm/s LVOT Peak Gradient 2.3 mmHg LVOT Velocity Time Integral 14.3 cm AV Area Cont Eq vti 2.4 cm AV Area Cont Eq pk 2.3 cm Mitral E Point Velocity 73.1 cm/s Mitral A Point Velocity 44.4 cm/s Mitral E to A Ratio 1.6 LV E' Lateral Velocity 18.4 cm/s Mitral E to LV E' Lateral Ratio 4.0 LV E' Septal Velocity 12.3 cm/s Mitral E to LV E' Septal Ratio 6.0 TR Peak Velocity 171.0 cm/s TR Peak Gradient 11.7 mmHg PV Peak Velocity 49.6 cm/s PV Peak Gradient 1.0 mmHg FINDINGS LEFT VENTRICLE Normal left ventricular size. Wall thickness is normal. The left ventricular systolic function is lo w normal with an estimated ejection fraction of 50%. No definite regional wall motion abnormalities. RIGHT VENTRICLE Normal right ventricular size and systolic function. LEFT ATRIUM The left atrial size is normal. RIGHT ATRIUM The right atrial size is normal. ATRIAL SEPTUM No atrial level shunt is demonstrated by color flow Doppler interrogation. AORTA The aortic root and proximal ascending aorta are normal in size on limited imaging. MITRAL VALVE Structurally normal mitral valve. No mitral valve stenosis or regurgitation. AORTIC VALVE Trileaflet aortic valve. No aortic valve stenosis or regurgitation. TRICUSPID VALVE Structurally normal tricuspid valve. No tricuspid valve stenosis or regurgitation. PULMONARY VALVE No pulmonary valve regurgitation or stenosis. VESSELS The inferior vena cava is normal in size. PERICARDIUM No pericardial effusion. Martin Nowak MD (Electronically Signed) Final Date:13 August 2017 16:15
--- NOTE | 2017-08-13 18:01 | PD.CAR.PN ---
CVT Progress Note Subjective/Hospital Course: Referral received Patient will floor We will see him in a.mZeeshan Rivera Objective: Vital Signs Date Time Temp Pulse Resp B/P (MAP) Pulse Ox O2 Delivery O2 Flow Rate FiO2 08/13/17 16:00 98.4 69 17 154/89 (110) 97 08/13/17 12:00 98.4 69 17 146/81 (102) 99 08/13/17 08:44 98 08/13/17 08:00 96.3 60 17 160/85 (110) 99 08/13/17 04:00 96.5 70 18 123/75 (91) 96 08/13/17 00:00 97.4 61 18 125/75 (92) 97 08/12/17 20:00 98.3 72 18 152/82 (105) 96 Result Diagram: 08/12/17 0540 08/12/17 0047 Kal Logan MD Aug 13, 2017 18:01
[2017-08-13] MEDS: FAMOTIDINE 20 MG TAB PO SCH (20:04)
[2017-08-13] MEDS: MORPHINE SULFATE 4 MG/ML INJ IV PUSH PRN (20:06)
[2017-08-14] VITALS (9 sets, daily range): BP systolic 118–145; BP diastolic 65–84; PULSE 66–72; RESP 16–20; TEMP 96.5–97; O2SAT 96–99
[2017-08-14] MEDS ORDERED: METOPROLOL TARTRATE 25 MG TAB PO PRN (00:15)
[2017-08-14] MEDS ORDERED: POVIDONE IODINE 5% (ANTISEPSIS KIT) 4 APPLICATIONS EACH NARE PRN (00:15)
[2017-08-14] MEDS ORDERED: CHLORHEXIDINE GLUCONATE 2 % 1 PACK (2 CLOTHS) TOPICAL PRN (00:15)
[2017-08-14] MEDS ORDERED: SODIUM CHLORID 0.9% 500 ML IV PRN (00:15)
[2017-08-14] MEDS ORDERED: LACTATED RINGER'S 1000 ML IV PRN (00:15)
[2017-08-14] MEDS: MORPHINE SULFATE 4 MG/ML INJ IV PUSH PRN (00:21)
[2017-08-14] MEDS: RESP: ALBUTEROL 2.5 MG/IPRATROPIUM 0.5 MG NEB (SCH) NEB ×3 (08:00→19:36)
[2017-08-14] MEDS: BUDESONIDE-FORMOTEROL 160/4.5 MCG INHALER INH SCH ×2 (08:54→20:15)
[2017-08-14] MEDS: LACTOBACILLUS ACIDOPHILUS TAB PO SCH ×3 (08:55→17:46)
[2017-08-14] MEDS: NICOTINE 14 MG/24 HR PATCH T-DERMAL SCH (08:55)
[2017-08-14] MEDS: REMOVE OLD PATCH T-DERMAL SCH (08:55)
[2017-08-14] MEDS: SODIUM CHLORIDE 0.9% FLUSH 10 ML FLUSH IV FLUSH SCH ×2 (08:56→20:19)
[2017-08-14] MEDS: DOCUSATE SODIUM 50 MG/SENNA 8.6 MG TAB PO SCH ×2 (08:56→20:19)
[2017-08-14] MEDS: guaiFENesin E.R. 600 MG TAB PO SCH ×2 (08:56→20:14)
--- NOTE | 2017-08-14 11:11 | GIPROC ---
[facility] [address] [facility]. [facility], [address] COLONOSCOPY PROCEDURE REPORT EXAM DATE: 08/14/2017 PATIENT NAME: Jose Padilla MR #: [id number] BIRTHDATE: 1965 ENDOSCOPIST: Susan Webb MD ORDER #: [id number] CUTTER HEAD SHARPENER: Farhad Garcia and Sharonda Vu STATUS: inpatient INDICATIONS: The patient is a 52 yr old male here for a colonoscopy due to iron deficiency anemia and weight loss PROCEDURE PERFORMED: Colonoscopy, diagnostic MEDICATIONS: None and Per Anesthesia. PREP QUALITY: The [place] Bowel Prep Score was Right colon 1, Mid colon 2, and Left colon 1. Total = 4. PREP TYPE:GoLytely ESTIMATED BLOOD LOSS: None CONSENT: The patient understands the risks and benefits of the procedure and understands that these risks include, but are not limited to: sedation, allergic reaction, infection, perforation and/or bleeding. Alternative means of evaluation and treatment include, among others: physical exam, x-rays, and/or surgical intervention. The patient elects to proceed with this endoscopic procedure. medical equipment was checked for proper function. Hand hygiene and appropriate measures for infection prevention was taken. After the risks, benefits and alternatives of the procedure were thoroughly explained, Informed consent was verified, confirmed and timeout was successfully executed by the treatment team. A digital exam revealed external hemorrhoids The Pentax EC-[id number] endoscope was introduced through the anus and advanced to the cecum, which was identified by both the appendix and ileocecal valve. The instrument was then slowly withdrawn as the colon was fully examined. COLON FINDINGS: Poor prep with barium throughout. Retroflexed views revealed internal hemorrhoids and Retroflexed views revealed medium internal hemorrhoids The scope was then completely withdrawn from the patient and the procedure terminated. PROCEDURE WITHDRAWAL TIME:6minutes ADVERSE EVENTS: There were no complications. IMPRESSIONS: 1. Poor prep with barium throughout 2. Retroflexed views revealed internal hemorrhoids 3. Retroflexed views revealed medium internal hemorrhoids 4. Revealed external hemorrhoids RECOMMENDATIONS: 1. Continue surveillance 2. Yearly hemoccult RECALL: Return 6 months Colonoscopy Susan Webb MD eSigned: Susan Webb MD 08/14/2017 11:11 AM cc: PATIENT NAME: Jose Padilla MR#: [id number]
--- NOTE | 2017-08-14 11:13 | GIPROC ---
[facility] [address] [facility]. [facility], [address] EGD PROCEDURE REPORT EXAM DATE: 08/14/2017 PATIENT NAME: Jose Padilla MR #: [id number] BIRTHDATE: 1965 ATTENDING: Susan Webb MD ORDER #: [id number] LOFT PATTERNMAKER: Farhad Garcia and Sharonda Vu STATUS: inpatient INDICATIONS: The patient is a 52 yr old male here for an EGD due to acute post hemorrhagic anemia and dysphagia PROCEDURE PERFORMED: EGD w/ biopsy MEDICATIONS: None and Per Anesthesia. TOPICAL ANESTHETIC: CONSENT: The patient understands the risks and benefits of the procedure and understands that these risks include, but are not limited to: sedation, allergic reaction, infection, perforation and/or bleeding. Alternative means of evaluation and treatment include, among others: physical exam, x-rays, and/or surgical intervention. The patient elects to proceed with this endoscopic procedure. medical equipment was checked for proper function. Hand hygiene and appropriate measures for infection prevention was taken. After the risks, benefits and alternatives of the procedure were thoroughly explained, Informed consent was verified, confirmed and timeout was successfully executed by the treatment team. The patient was anesthetized with topical anesthesia and the [id number] (Pedi C) endoscope was introduced through the mouth and advanced to the second portion of the duodenum. Retroflexed views revealed no abnormalities The gastroscope was then slowly withdrawn and removed. ESOPHAGUS: There was short segment Ray's esophagus found in the distal esophagus. The length of circumferential Ray's was 1cm (Weston C1) and the length of Maximal extent of Ray's was 2cm (Weston M2). There was no nodular mucosa noted in the Ray's segment. Multiple biopsies were performed using cold forceps. Sample sent for histology. STOMACH: There was mild gastritis in the gastric antrum. DUODENUM: The duodenal mucosa appeared normal in the bulb and second portion of the duodenum. ADVERSE EVENTS: There were no complications. IMPRESSIONS: 1. There was short segment Ray's esophagus found in the distal esophagus; multiple biopsies were performed 2. There was mild gastritis in the gastric antrum 3. Normal duodenal mucosa in the bulb and second portion of the duodenum 4. Retroflexed views revealed no abnormalities RECOMMENDATIONS: 1. Await biopsy results. Biopsy results will not be ready for 7-10 days. If you don't hear from us in two weeks, call our office for biopsy results. 2. Anti-reflux regimen 3. Colonoscopy 4. Continue PPI PATIENT CONDITION: stable DISPOSITION: Inpatient REPEAT EXAM: Return 1 year EGD pending biopsy results Susan Webb MD eSigned: Susan Webb MD 08/14/2017 11:13 AM cc: PATIENT NAME: Jose Padilla MR#: [id number]
[2017-08-14] MEDS ORDERED: LIDOCAINE HCL 1% PF 5 ML SYRINGE OTHER ONE (12:00)
[2017-08-14] MEDS ORDERED: DO NOT ADM ANY ANTICOAGULANT DRUGS PRN (12:00)
[2017-08-14] MEDS ORDERED: PROPOFOL 200 MG/20 ML AMP IV ONE (12:00)
[2017-08-14] MEDS: PANTOPRAZOLE SOD 40 MG DELAYED RELEASE TAB PO SCH (13:26)
[2017-08-14] MEDS: oxyCODONE/ACETAMINOPHEN 10 MG/325 MG TAB PO PRN ×2 (13:37→20:18)
--- NOTE | 2017-08-14 14:23 | HHI.PR ---
Subjective Remarks Patient reports he is feeling ok. Wants to eat. S/P EGD/Colonoscopy. Objective Vitals Vital Signs Date Time Temp Pulse Resp B/P (MAP) Pulse Ox O2 Delivery O2 Flow Rate FiO2 08/14/17 12:46 96.5 67 18 145/84 (104) 99 08/14/17 11:33 62 18 142/88 (106) 99 08/14/17 11:20 97.8 64 16 130/80 (97) 99 08/14/17 08:51 96.8 72 16 136/65 (88) 98 08/14/17 08:44 97 08/14/17 05:12 96.6 68 18 124/84 (97) 96 08/14/17 00:00 96.7 66 18 131/80 (97) 97 08/13/17 20:00 95.9 68 18 144/95 (111) 96 08/13/17 16:00 98.4 69 17 154/89 (110) 97 I/O 08/13/17 08/13/17 08/13/17 08/14/17 08/14/17 08/14/17 06:59 14:59 22:59 06:59 14:59 22:59 Intake Total 780 ml 2880 ml 780 ml 300 ml Balance 780 ml 2880 ml 780 ml 300 ml Intake Oral 780 ml 2880 ml 780 ml Other 300 ml # Voids 3 4 5 # Bowel Movements 0 0 5 Result Diagram: 08/12/17 0540 08/12/17 0047 Imaging Last Impressions Barium Swallow X-Ray 08/13/17 0000 Signed Impressions: Service Date/Time: Sunday, August 13, 2017 09:16 - CONCLUSION: 1. Small reducible hiatal hernia. 2. Status post lower cervical fusion. Reza Diaz MD Chest X-Ray 08/11/17 1643 Signed Impressions: Service Date/Time: Friday, August 11, 2017 20:34 - CONCLUSION: Scattered emphysematous changes. Mild degenerative changes and scoliosis of the thoracic spine. Otherwise unremarkable chest. Tucker Steve MD Chest CT 08/11/17 0000 Signed Impressions: Service Date/Time: Friday, August 11, 2017 20:40 - CONCLUSION: 1. Scattered emphysematous changes. 2. 6 mm noncalcified nodule within the left mid lung field which is indeterminate. Followup CT of the chest in 6 months is recommended to confirm stability. 3. Biapical fibrotic scarring. 4. Mild degenerative changes and scoliosis of the thoracic spine. Tucker Steve MD Abdomen/Pelvis CT 08/11/17 0000 Signed Impressions: Service Date/Time: Friday, August 11, 2017 20:40 - CONCLUSION: 1. Uncomplicated colonic diverticulosis. 2. Mild degenerative changes and scoliosis of the lumbar spine. Tucker Steve MD Objective Remarks GENERAL: This is a well-nourished, well-developed patient, in no apparent distress. CARDIOVASCULAR: Regular rate and rhythm without murmurs, gallops, or rubs. RESPIRATORY: Diminished breath sounds throughout. Clear to auscultation. GASTROINTESTINAL: Abdomen soft, non-tender, nondistended. Normal active bowel sounds MUSCULOSKELETAL: Extremities without clubbing, cyanosis, or edema. NEURO: Alert & Oriented x4 to person, place, time, situation. Moves all ext x4 A/P Problem List: (1) Weight loss ICD Code: R63.4 - Abnormal weight loss Status: Acute Plan: The patient complains of a weight loss of approximately 15-20 pounds in the past 2 months. He states weight loss is unintentional. Patient has had a CT of the chest, abdomen and pelvis. CT chest shows scattered emphysematous changes. 2.6 mm noncalcified nodule within the left midlung field which is indeterminate. Follow-up CT of the chest in 6 months is recommended to confirm stability. DW the patient. CT abdomen shows unconjugated colonic diverticulosis. Mild degenerative changes and a scoliosis of the lumbar spine. 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 Start PPI. Biopsy follow up with GI (2) Dysphagia ICD Code: R13.10 - Dysphagia, unspecified (3) Severe protein-calorie malnutrition ICD Code: E43 - Unspecified severe protein-calorie malnutrition (4) Positive blood cultures ICD Code: R78.81 - Bacteremia Plan: ID consulted. Blood cultures cw contamination. Abx Dced, Repeat blood cultures negative (5) Intermittent claudication ICD Code: I73.9 - Peripheral vascular disease, unspecified Plan: Patient complains of burning in one walking for which she has to stop and then pain goes away. MEHRDAD shows severe disease. Vascular surgery consulted. (6) Tobacco abuse ICD Code: Z72.0 - Tobacco use Status: Acute Plan: The patient smokes one pack per day. Advised cessation. nicotine patch. (7) Emphysema of lung ICD Code: J43.9 - Emphysema, unspecified Status: Acute Plan: Patient started on Symbicort, DuoNeb treatments, albuterol not an exacerbation at this moment. Problem Qualifiers (1) Dysphagia: Qualified Codes: R13.10 - Dysphagia, unspecified (2) Emphysema of lung: Qualified Codes: J43.9 - Emphysema, unspecified Veronika Hutson MD Aug 14, 2017 14:23
--- NOTE | 2017-08-14 17:13 | PD.CAR.PN ---
CVT Progress Note Subjective/Hospital Course: Referral received Patient will floor We will see him in a.mZeeshan Rivera 08/14/17 Patient evaluated Full consult dictated Severe peripheral vascular disease with short distance serious claudication CTA with runoff and carotid ultrasound pending Will continue to follow Objective: Vital Signs Date Time Temp Pulse Resp B/P (MAP) Pulse Ox O2 Delivery O2 Flow Rate FiO2 08/14/17 12:46 96.5 67 18 145/84 (104) 99 08/14/17 11:33 62 18 142/88 (106) 99 08/14/17 11:20 97.8 64 16 130/80 (97) 99 08/14/17 08:51 96.8 72 16 136/65 (88) 98 08/14/17 08:44 97 08/14/17 05:12 96.6 68 18 124/84 (97) 96 08/14/17 00:00 96.7 66 18 131/80 (97) 97 08/13/17 20:00 95.9 68 18 144/95 (111) 96 Result Diagram: 08/12/17 0540 08/12/17 0047 Kal Logan MD Aug 14, 2017 17:13
[2017-08-14] MEDS ORDERED: IOHEXOL 350 MG/ML 10 ML VIAL (for RAD DIAG) IVCONTRAST ONE (19:35)
[2017-08-14] MEDS: FAMOTIDINE 20 MG TAB PO SCH (20:14)
--- NOTE | 2017-08-14 20:54 | MB ---
cc: KAL LIMA MD DATE OF CONSULTATION 08/13/2017 REASON FOR CONSULTATION peripheral vascular disease, Right second toe gangrenous tip, positive blood cultures, severe peripheral vascular disease and very short distance severe claudication/ HISTORY OF PRESENT ILLNESS A 52-year-old male presents to the hospital for elevation of a blood culture that was positive about four days ago at which time he presented with multiple complaints. The patient apparently had several epidural injections. Some in 2016, then some in July 2017, i.e., two weeks ago or so. The patient has chronic back pain, herniated disks and such. In the process of workup, he underwent a segmental Dopplers, ABIs, which revealed severe reduced MEHRDAD, right more than left. On questioning, the patient has severe claudication and he is able to walk only about 20 yards before he has to stop because of severe burning in both of his calves. The patient is a tobacco abuser. PAST MEDICAL HISTORY 1. Hypertension. 2. Disk herniation L4-L5, L5-S1 3. Tobacco abuse. PAST SURGICAL HISTORY 1. Some sort of the cervical disk surgery 2. Several epidural injections as above-noted. MEDICATIONS Norvasc. SOCIAL HISTORY The patient smokes at least one pack a day, maybe two. Drinks. PHYSICAL EXAMINATION GENERAL: A 52-year-old male. HEENT: Normocephalic. No trauma to the head. Pupils equally reactive. Extraocular muscles intact. NECK: Supple, bilateral carotid pulses and perhaps a faint right-sided bruit but hard to tell, comes and goes. CHEST: Bilateral breath sounds decreased over both lung tejada consistent with fairly advanced COPD. HEART: Regular rhythm. The patient has atrophy of the chest wall musculature consistent with pulmonary cachexia and this is fairly prominent. He is using accessory muscles to breathe at this younger age. ABDOMEN: Soft. Active bowel sounds. No rebound or guarding. No masses. EXTREMITIES: The patient has fairly good left femoral pulse on palpation, on the right side I do not feel femoral pulse at all. He has bilateral dopplerable popliteal pulses, bilateral dopplerable posterior tibial pulses and dorsalis pedis pulses. Feet are warm, but capillary refill is slightly decreased. He has dependent rubor and elevation pallor and there is a small focus of dry gangrene on the second toe right. NEUROLOGIC: The patient is grossly intact. IMPRESSION/RECOMMENDATIONS I reviewed laboratory and diagnostic procedures. The gentleman has other issues for which he is being worked. Upper and lower endoscopy has been done and with the exception of finding Ray's esophagus, there are no other significant findings. As far as vascular supply is concerned, this patient has classic picture of severe claudication with the ability to walk barely any distance and having cramping burning pain in both calves. This indicates probably a combination of inflow disease and probably bilateral SFA occlusions. In the face of a small ulcer on the right greater toe, there is no question in my mind that this patient should have a CTA with a runoff and carotid ultrasound and we will go from there. He may have a stentable and endovascularly approachable disease or he may have an open surgery. At this younger age, every effort should be made to save the patient's legs. Thank you much for referral. We will continue to follow patient. Kal LOVELL /5:07 PM /8:33 PM
--- NOTE | 2017-08-14 23:11 | RADRPT ---
EXAM DATE/TIME: 08/14/2017 21:05 [facility] COMPARISON: No previous studies available for comparison. INDICATIONS : Vascular workup. MEDICAL HISTORY : Hypertension. Palpitations. Dyspnea. Melena. Chronic back pain. SURGICAL HISTORY : Artificial disc in neck. ENCOUNTER: Initial ACUITY: 1 day PAIN SCORE: 0/10 LOCATION: Bilateral neck PEAK SYSTOLIC VELOCITIES (cm/sec): ICA/CCA RATIO: Right: 1.1 Left: 0.8 ICA: Right: 82.0 Left: 64.4 CCA: Right: 73.2 Left: 83.6 ECA: Right: 80.9 Left: 90.1 VERTEBRAL: Right: 39.6 antegrade Left: 57.8 antegrade Elevated flow velocities and ICA/CCA ratios have been found to correlate with increased degrees of vessel stenosis, calculated as percentage of diameter relative to a normal segment of distal ICA/CCA FINDINGS: RIGHT CAROTID: No significant stenosis is visualized. The waveforms are within normal limits. LEFT CAROTID: No significant stenosis is visualized. The waveforms are within normal limits. VERTEBRAL ARTERIES: Antegrade flow is seen in both vertebral arteries. MISCELLANEOUS: None. CONCLUSION: No evidence for hemodynamically significant stenosis.. Joaquin Juarez MD on August 14, 2017 at 23:08 Board Certified Radiologist. This report was verified electronically.
[2017-08-15] VITALS (12 sets, daily range): BP systolic 113–139; BP diastolic 67–78; PULSE 53–73; RESP 16–20; TEMP 96.5–98.3; O2SAT 97–99
[2017-08-15] MEDS: BUDESONIDE-FORMOTEROL 160/4.5 MCG INHALER INH SCH ×2 (07:00→20:09)
[2017-08-15] MEDS: guaiFENesin E.R. 600 MG TAB PO SCH ×2 (07:01→20:08)
--- NOTE | 2017-08-15 07:47 | RADRPT ---
EXAM DATE/TIME: 08/14/2017 19:23 [facility] COMPARISON: No previous studies available for comparison. INDICATIONS : Severe claudication after ambulation. IV CONTRAST: 100 cc Omnipaque 350 (iohexol) IV RADIATION DOSE: 1.25 CTDIvol (mGy) MEDICAL HISTORY : Hypertension. SURGICAL HISTORY : None. ENCOUNTER: Initial ACUITY: 1 week PAIN SCALE: 8/10 LOCATION: Bilateral lower legs. TECHNIQUE: Volumetric scanning was performed using a multi-row detector CT scanner. The data was post processed with a variety of visualization algorithms including full volume maximum intensity projection, multi -planar sliding thin slab reformation, curved planar reformation, and surface rendering techniques. Using automated exposure control and adjustment of the mA and/or kV according to patient size, radiat ion dose was kept as low as reasonably achievable to obtain optimal diagnostic quality images. DICO M format image data is available electronically for review and comparison. FINDINGS: AORTA: Limited distal aortic mixed plaque with minimal ectasia but no significant flow-limiting stenosis or aneurysm. VISCERAL ARTERIES: Single bilateral renal arteries which are widely patent. Celiac, SMA, and BARBARA are widely patent. RIGHT LEG: INFLOW: Diffuse calcified plaque in the common iliac artery with tandem moderate stenoses. Focal moderate carmen nosis of the internal iliac artery origin. Diffusely small caliber but patent external iliac artery. Common femoral artery is patent. OUTFLOW: Profunda is patent. Diffusely calcified SFA in the distal thigh with diffuse mild to moderate stenosi s. Popliteal artery is patent. RUNOFF: Mild calcified plaque in the tibioperoneal trunk. Three-vessel runoff to the foot. LEFT LEG: INFLOW: Diffuse plaque in the common iliac artery with tandem moderate to severe stenoses. Internal iliac art rancho is patent. Small caliber but patent external iliac artery. Common femoral artery is patent. The OUTFLOW: Profunda is patent. SFA is occluded just beyond the origin. Curvature profunda collaterals reconstitu ting the distal SFA near the abductor canal. Popliteal artery is patent. RUNOFF: Three-vessel runoff to the foot. GENERAL FINDINGS: Visualized lung bases are clear. Evaluation of the abdominal viscera is limited due to arterial phase technique. Liver, spleen, adrenal glands, gallbladder, and pancreas are grossly unremarkable. Kidney s demonstrate symmetrical enhancement without evidence for radiopaque renal calculi or hydronephrosis . No significant renal mass. The bowel appears unremarkable without evidence for obstruction. No sign ificant free fluid or drainable fluid collection. Bladder is mild to moderately distended but otherwise unremarkable. Prostate is nonspecifically enlar ged and contains coarse calcifications. CONCLUSION: 1. No significant aortic occlusive disease. 2. Bilateral moderate to severe common iliac artery stenoses, left greater than right. Patient may be nefit from iliac intervention. 3. Occluded left SFA with mature profunda collaterals reconstituting the SFA near the adductor canal. 4. Mild tandem stenoses of the right SFA most prominently in the distal thigh. 5. Three-vessel runoff bilaterally. Hugh Thomas MD on August 15, 2017 at 7:22 Board Certified Radiologist. This report was verified electronically.
[2017-08-15] MEDS: SODIUM CHLORIDE 0.9% FLUSH 10 ML FLUSH IV FLUSH SCH ×2 (08:00→20:09)
[2017-08-15] MEDS: REMOVE OLD PATCH T-DERMAL SCH (08:00)
[2017-08-15] MEDS: PANTOPRAZOLE SOD 40 MG DELAYED RELEASE TAB PO SCH (08:00)
[2017-08-15] MEDS: DOCUSATE SODIUM 50 MG/SENNA 8.6 MG TAB PO SCH ×2 (08:00→20:08)
[2017-08-15] MEDS: RESP: ALBUTEROL 2.5 MG/IPRATROPIUM 0.5 MG NEB (SCH) NEB ×3 (08:00→19:20)
[2017-08-15] MEDS: NICOTINE 14 MG/24 HR PATCH T-DERMAL SCH (08:00)
[2017-08-15] MEDS: LACTOBACILLUS ACIDOPHILUS TAB PO SCH ×3 (08:00→17:14)
--- NOTE | 2017-08-15 10:41 | HHI.GIFU ---
Subjective Remarks Pt resting in bed, friend at bedside. No GI complaints. No trouble eating. No bleeding. (Alma Maurice) Objective Vitals I&O Vital Signs Date Time Temp Pulse Resp B/P (MAP) Pulse Ox O2 Delivery O2 Flow Rate FiO2 08/15/17 08:00 96.6 59 17 127/78 (94) 99 08/15/17 04:01 66 08/15/17 03:39 96.5 62 16 113/68 (83) 99 08/15/17 00:03 53 08/15/17 00:00 96.8 68 18 114/67 (83) 97 08/14/17 20:23 69 08/14/17 20:00 96.6 68 20 128/80 (96) 99 08/14/17 19:10 97 08/14/17 18:28 97.0 72 16 118/73 (88) 97 08/14/17 12:46 96.5 67 18 145/84 (104) 99 08/14/17 11:33 62 18 142/88 (106) 99 08/14/17 11:20 97.8 64 16 130/80 (97) 99 I/O 08/14/17 08/14/17 08/14/17 08/15/17 08/15/17 08/15/17 07:00 15:00 23:00 07:00 15:00 23:00 Intake Total 780 ml 300 ml 800 ml Balance 780 ml 300 ml 800 ml Intake Oral 780 ml 800 ml Other 300 ml # Voids 5 2 # Bowel Movements 5 Laboratory Date/Time Source Procedure Growth Status 08/11/17 12:30 Blood Peripheral Aerobic Blood Culture - Preliminary NO GROWTH IN 3 DAYS Resulted 08/11/17 12:30 Blood Peripheral Anaerobic Blood Culture - Preliminary NO GROWTH IN 3 DAYS Resulted 08/11/17 12:30 Nasal Washing Influenza Types A,B Antigen (JESSICA) - Final NEGATIVE FOR FLU A AND B ANTIGEN.... Complete Imaging Last Impressions Carotid Artery Ultrasound 08/14/17 0000 Signed Impressions: Service Date/Time: August 21:05 - CONCLUSION: No evidence for hemodynamically significant stenosis.. Joaquin Juarez MD Aorta w/Runoff CTA 08/14/17 0000 Signed Impressions: Service Date/Time: August 19:23 - CONCLUSION: 1. No significant aortic occlusive disease. 2. Bilateral moderate to severe common iliac artery stenoses, left greater than right. Patient may benefit from iliac intervention. 3. Occluded left SFA with mature profunda collaterals reconstituting the SFA near the adductor canal. 4. Mild tandem stenoses of the right SFA most prominently in the distal thigh. 5. Three-vessel runoff bilaterally. Hugh Thomas MD Barium Swallow X-Ray 08/13/17 0000 Signed Impressions: Service Date/Time: Sunday, August 13, 2017 09:16 - CONCLUSION: 1. Small reducible hiatal hernia. 2. Status post lower cervical fusion. Reza Diaz MD Chest X-Ray 08/11/17 1643 Signed Impressions: Service Date/Time: Friday, August 11, 2017 20:34 - CONCLUSION: Scattered emphysematous changes. Mild degenerative changes and scoliosis of the thoracic spine. Otherwise unremarkable chest. Tucker Steve MD Chest CT 08/11/17 0000 Signed Impressions: Service Date/Time: Friday, August 11, 2017 20:40 - CONCLUSION: 1. Scattered emphysematous changes. 2. 6 mm noncalcified nodule within the left mid lung field which is indeterminate. Followup CT of the chest in 6 months is recommended to confirm stability. 3. Biapical fibrotic scarring. 4. Mild degenerative changes and scoliosis of the thoracic spine. Tucker Steve MD Abdomen/Pelvis CT 08/11/17 0000 Signed Impressions: Service Date/Time: Friday, August 11, 2017 20:40 - CONCLUSION: 1. Uncomplicated colonic diverticulosis. 2. Mild degenerative changes and scoliosis of the lumbar spine. Tucker Steve MD Physical Exam HEENT: PERRL; normocephalic; atraumatic; no jaundice. CHEST: diminished CARDIAC: RRR ABDOMEN: Soft, nondistended, nontender; no hepatosplenomegaly; bowel sounds are present in all four quadrants. EXTREMITIES: No clubbing, cyanosis, or edema. SKIN: Normal; no rash; no jaundice. SENIOR RESERVATIONS AGENT: No focal deficits; alert and oriented times three. (Alma Maurice) Assessment and Plan Plan ASSESSMENT - BRBPR - intermittent, last episode 2 weeks ago and copious blood filling bowl. never had EGD or colonoscopy. HH WNL - dysphagia - onset 3 weeks ago, bolus sensation with solid foods - weight loss - unclear etiology, could be r/t inactivity 08/15/17 s/p EGD and colonoscopy 08/14 found short segment sims's, gastritis; poor prep & barium seen. No GI complaints today. Ba swallow showed small hernia. PLAN - await biopsies - repeat colonoscopy 6months, d/w pt - monitor labs - notify GI of active bleeding PT Seen by myself and Dr Webb and this note is written on his behalf (Alma Maurice) Physician Comments Seen and examined with [employer], s/p egd/colonoscopy/ugi series. Monitor labs. Short term gi fu for repeat colonoscopy recommended. (Susan Webb MD) Alma Maurice Aug 15, 2017 10:41 Susan Webb MD Aug 15, 2017 14:38
[2017-08-15] MEDS: oxyCODONE/ACETAMINOPHEN 10 MG/325 MG TAB PO PRN (14:28)
--- NOTE | 2017-08-15 16:17 | HHI.PR ---
Subjective Remarks Patient reports is feeling okay. Still experience significant lower extremity pain on ambulation. Objective Vitals Vital Signs Date Time Temp Pulse Resp B/P (MAP) Pulse Ox O2 Delivery O2 Flow Rate FiO2 08/15/17 14:02 99 08/15/17 12:00 98.0 66 18 129/72 (91) 98 08/15/17 08:00 96.6 59 17 127/78 (94) 99 08/15/17 04:01 66 08/15/17 03:39 96.5 62 16 113/68 (83) 99 08/15/17 00:03 53 08/15/17 00:00 96.8 68 18 114/67 (83) 97 08/14/17 20:23 69 08/14/17 20:00 96.6 68 20 128/80 (96) 99 08/14/17 19:10 97 08/14/17 18:28 97.0 72 16 118/73 (88) 97 I/O 08/14/17 08/14/17 08/14/17 08/15/17 08/15/17 08/15/17 07:00 15:00 23:00 07:00 15:00 23:00 Intake Total 780 ml 300 ml 800 ml Balance 780 ml 300 ml 800 ml Intake Oral 780 ml 800 ml Other 300 ml # Voids 5 2 # Bowel Movements 5 Result Diagram: 08/12/17 0540 08/12/17 0047 Objective Remarks GENERAL: This is a well-nourished, well-developed patient, in no apparent distress. CARDIOVASCULAR: Regular rate and rhythm without murmurs, gallops, or rubs. RESPIRATORY: Diminished breath sounds throughout. Clear to auscultation. GASTROINTESTINAL: Abdomen soft, non-tender, nondistended. Normal active bowel sounds MUSCULOSKELETAL: Extremities without clubbing, cyanosis, or edema. NEURO: Alert & Oriented x4 to person, place, time, situation. Moves all ext x4 A/P Problem List: (1) Weight loss ICD Code: R63.4 - Abnormal weight loss Status: Acute Plan: The patient complains of a weight loss of approximately 15-20 pounds in the past 2 months. He states weight loss is unintentional. Patient has had a CT of the chest, abdomen and pelvis. CT chest shows scattered emphysematous changes. 2.6 mm noncalcified nodule within the left midlung field which is indeterminate. Follow-up CT of the chest in 6 months is recommended to confirm stability. DW the patient. CT abdomen shows unconjugated colonic diverticulosis. Mild degenerative changes and a scoliosis of the lumbar spine. 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 Continue PPI. Biopsy follow up with GI (2) Dysphagia ICD Code: R13.10 - Dysphagia, unspecified (3) Severe protein-calorie malnutrition ICD Code: E43 - Unspecified severe protein-calorie malnutrition (4) Positive blood cultures ICD Code: R78.81 - Bacteremia Plan: ID consulted. Blood cultures cw contamination. Abx Dced, Repeat blood cultures negative (5) Intermittent claudication ICD Code: I73.9 - Peripheral vascular disease, unspecified Plan: Patient complains of burning and significant pain in the lower extremities when Walking. Consistent with severe claudication. MEHRDAD shows severe disease. Vascular surgery consulted and CTA runoff shows bilateral moderate to severe common iliac artery stenosis, may benefit from iliac intervention. Further plans per vascular surgery. (6) Tobacco abuse ICD Code: Z72.0 - Tobacco use Status: Acute Plan: The patient smokes one pack per day. Advised cessation. nicotine patch. (7) Emphysema of lung ICD Code: J43.9 - Emphysema, unspecified Status: Acute Plan: Patient started on Symbicort, DuoNeb treatments, albuterol not an exacerbation at this moment. Discharge Planning Likely need surgical intervention. Vascular surgery to follow-up. Problem Qualifiers (1) Dysphagia: Qualified Codes: R13.10 - Dysphagia, unspecified (2) Emphysema of lung: Qualified Codes: J43.9 - Emphysema, unspecified Veronika Hutson MD Aug 15, 2017 16:17
--- NOTE | 2017-08-15 16:49 | PD.CAR.PN ---
CVT Progress Note Subjective/Hospital Course: Referral received Patient will floor We will see him in a.mZeeshan Rivera 08/14/17 Patient evaluated Full consult dictated Severe peripheral vascular disease with short distance serious claudication CTA with runoff and carotid ultrasound pending Will continue to follow 08/15/17 Patient with severe peripheral vascular disease as above noted and stated in the consult CTA with a runoff is performed and shows exactly what we predicted. Patient has bilateral common iliac artery stenosis and these will need balloon angioplasty and stenting He has common femoral artery stenosis and then SFA bilateral occlusion with reconstitution of the popliteal arteries bilateral Runoff looks okay but flow is limited since hard to tell Patient has severe claudication at about 20 yards and it takes him only to push lawnmower one time across is long before has to stop due to severe calf cramping After looking at the CTA and comparing this the patient's exam I can see why he has such a problem and at this young age patient needs a solid intervention Patient will be scheduled for the bilateral iliac balloon angioplasty and stenting and right femoral-popliteal bypass with either vein or a graft depending how usable the saphenous vein looks of the time of surgery Considering his age I would rather use a vein Perhaps the few months later we can attend the left leg and do femoropopliteal bypass on that side We'll schedule for the procedure it endovascular suite early next week Objective: Vital Signs Date Time Temp Pulse Resp B/P (MAP) Pulse Ox O2 Delivery O2 Flow Rate FiO2 08/15/17 14:02 99 08/15/17 12:00 98.0 66 18 129/72 (91) 98 08/15/17 08:00 96.6 59 17 127/78 (94) 99 08/15/17 04:01 66 08/15/17 03:39 96.5 62 16 113/68 (83) 99 08/15/17 00:03 53 08/15/17 00:00 96.8 68 18 114/67 (83) 97 08/14/17 20:23 69 08/14/17 20:00 96.6 68 20 128/80 (96) 99 08/14/17 19:10 97 08/14/17 18:28 97.0 72 16 118/73 (88) 97 Result Diagram: 08/12/17 0540 08/12/17 0047 Kal Logan MD Aug 15, 2017 16:49
[2017-08-15] MEDS: FAMOTIDINE 20 MG TAB PO SCH (20:08)
[2017-08-16] VITALS (10 sets, daily range): BP systolic 101–132; BP diastolic 61–82; PULSE 51–84; RESP 17–18; TEMP 96–97; O2SAT 97–99
[2017-08-16] MEDS: oxyCODONE/ACETAMINOPHEN 10 MG/325 MG TAB PO PRN ×3 (03:25→20:58)
[2017-08-16] MEDS: BUDESONIDE-FORMOTEROL 160/4.5 MCG INHALER INH SCH ×2 (09:00→20:00)
[2017-08-16] MEDS: RESP: ALBUTEROL 2.5 MG/IPRATROPIUM 0.5 MG NEB (SCH) NEB ×2 (09:08→12:20)
[2017-08-16] MEDS: DOCUSATE SODIUM 50 MG/SENNA 8.6 MG TAB PO SCH ×2 (09:14→20:01)
[2017-08-16] MEDS: PANTOPRAZOLE SOD 40 MG DELAYED RELEASE TAB PO SCH (09:14)
[2017-08-16] MEDS: LACTOBACILLUS ACIDOPHILUS TAB PO SCH ×3 (09:14→16:30)
[2017-08-16] MEDS: guaiFENesin E.R. 600 MG TAB PO SCH ×2 (09:15→20:01)
[2017-08-16] MEDS: SODIUM CHLORIDE 0.9% FLUSH 10 ML FLUSH IV FLUSH SCH ×2 (09:16→20:01)
[2017-08-16] MEDS: REMOVE OLD PATCH T-DERMAL SCH (09:35)
[2017-08-16] MEDS: NICOTINE 14 MG/24 HR PATCH T-DERMAL SCH (09:36)
--- NOTE | 2017-08-16 11:23 | HHI.PR ---
Subjective Remarks Patient reports he is feeling ok today. No new issues. Answered all his questions. Objective Vitals Vital Signs Date Time Temp Pulse Resp B/P (MAP) Pulse Ox O2 Delivery O2 Flow Rate FiO2 08/16/17 09:08 99 21 08/16/17 08:15 84 08/16/17 08:00 96.8 54 17 124/75 (91) 98 08/16/17 03:59 51 08/16/17 03:56 96.4 65 18 118/76 (90) 99 08/16/17 00:00 96.8 69 18 101/61 (74) 99 08/15/17 23:43 56 08/15/17 20:00 98.3 67 20 139/76 (97) 98 08/15/17 19:57 69 08/15/17 19:21 98 21 08/15/17 16:00 97.7 73 18 113/72 (86) 98 08/15/17 14:02 99 08/15/17 12:00 98.0 66 18 129/72 (91) 98 I/O 08/15/17 08/15/17 08/15/17 08/16/17 08/16/17 08/16/17 07:00 15:00 23:00 07:00 15:00 23:00 Intake Total 720 ml Output Total 2100 ml Balance 720 ml -2100 ml Intake Oral 720 ml Output Urine Total 2100 ml # Voids 3 8 # Bowel Movements 0 Result Diagram: 08/12/17 0540 08/12/17 0047 Objective Remarks GENERAL: This is a well-nourished, well-developed patient, in no apparent distress. CARDIOVASCULAR: Regular rate and rhythm without murmurs, gallops, or rubs. RESPIRATORY: Diminished breath sounds throughout. Clear to auscultation. GASTROINTESTINAL: Abdomen soft, non-tender, nondistended. Normal active bowel sounds MUSCULOSKELETAL: Extremities without clubbing, cyanosis, or edema. NEURO: Alert & Oriented x4 to person, place, time, situation. Moves all ext x4 A/P Problem List: (1) Weight loss ICD Code: R63.4 - Abnormal weight loss Status: Acute Plan: The patient complains of a weight loss of approximately 15-20 pounds in the past 2 months. He states weight loss is unintentional. Patient has had a CT of the chest, abdomen and pelvis. CT chest shows scattered emphysematous changes. 2.6 mm noncalcified nodule within the left midlung field which is indeterminate. Follow-up CT of the chest in 6 months is recommended to confirm stability. DW the patient. CT abdomen shows unconjugated colonic diverticulosis. Mild degenerative changes and a scoliosis of the lumbar spine. 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 Continue PPI. Biopsy follow up with GI (2) Dysphagia ICD Code: R13.10 - Dysphagia, unspecified (3) Severe protein-calorie malnutrition ICD Code: E43 - Unspecified severe protein-calorie malnutrition (4) Positive blood cultures ICD Code: R78.81 - Bacteremia Plan: ID consulted. Blood cultures cw contamination. Abx Dced, Repeat blood cultures negative (5) Intermittent claudication ICD Code: I73.9 - Peripheral vascular disease, unspecified Plan: Patient complains of burning and significant pain in the lower extremities when Walking. Consistent with severe claudication. MEHRDAD shows severe disease. Vascular surgery consulted and CTA runoff shows bilateral moderate to severe common iliac artery stenosis, may benefit from iliac intervention. Further plans per vascular surgery. (6) Tobacco abuse ICD Code: Z72.0 - Tobacco use Status: Acute Plan: The patient smokes one pack per day. Advised cessation. nicotine patch. (7) Emphysema of lung ICD Code: J43.9 - Emphysema, unspecified Status: Acute Plan: Patient started on Symbicort, DuoNeb treatments, albuterol not an exacerbation at this moment. Discharge Planning Likely need surgical intervention. Vascular surgery to follow-up. Problem Qualifiers (1) Dysphagia: Qualified Codes: R13.10 - Dysphagia, unspecified (2) Emphysema of lung: Qualified Codes: J43.9 - Emphysema, unspecified Veronika Hutson MD Aug 16, 2017 11:23
--- NOTE | 2017-08-16 11:32 | PD.CAR.PN ---
CVT Progress Note Subjective/Hospital Course: Referral received Patient will floor We will see him in a.mZeeshan Rivera 08/14/17 Patient evaluated Full consult dictated Severe peripheral vascular disease with short distance serious claudication CTA with runoff and carotid ultrasound pending Will continue to follow 08/15/17 Patient with severe peripheral vascular disease as above noted and stated in the consult CTA with a runoff is performed and shows exactly what we predicted. Patient has bilateral common iliac artery stenosis and these will need balloon angioplasty and stenting He has common femoral artery stenosis and then SFA bilateral occlusion with reconstitution of the popliteal arteries bilateral Runoff below the knee looks okay but flow is limited so it's hard to tell Patient has severe claudication at about 20 yards and it takes him only to push lawnmower one time across is long before has to stop due to severe calf cramping After looking at the CTA and comparing this the patient's exam I can see why he has such a problem and at this young age patient needs a solid intervention Patient will be scheduled for the bilateral iliac balloon angioplasty and stenting and right femoral-popliteal bypass with either vein or a graft depending how usable the saphenous vein looks of the time of surgery Considering his age I would rather use a vein Perhaps the few months later we can attend the left leg and do femoropopliteal bypass on that side We'll schedule for the procedure it endovascular suite early next week 08/16/17 Patient doing well at this time Scheduled to undergo a right leg revascularization with right iliac balloon angioplasty and stent followed by femoropopliteal bypass We'll go ahead with surgery either Friday or Friday depending on the OR hybrid suite availability Objective: Vital Signs Date Time Temp Pulse Resp B/P (MAP) Pulse Ox O2 Delivery O2 Flow Rate FiO2 08/16/17 09:08 99 21 08/16/17 08:15 84 08/16/17 08:00 96.8 54 17 124/75 (91) 98 08/16/17 03:59 51 08/16/17 03:56 96.4 65 18 118/76 (90) 99 08/16/17 00:00 96.8 69 18 101/61 (74) 99 08/15/17 23:43 56 08/15/17 20:00 98.3 67 20 139/76 (97) 98 08/15/17 19:57 69 08/15/17 19:21 98 21 08/15/17 16:00 97.7 73 18 113/72 (86) 98 08/15/17 14:02 99 08/15/17 12:00 98.0 66 18 129/72 (91) 98 Result Diagram: 08/12/17 0540 08/12/17 0047 Kal Logan MD Aug 16, 2017 11:32
--- NOTE | 2017-08-16 16:59 | HHI.GIFU ---
Subjective Remarks Patient is resting in bed, denies any more bleeding, not having any GI issues. (Jimi Jones BUSINESS SUPPORT ASSOCIATE) Objective Vitals I&O Vital Signs Date Time Temp Pulse Resp B/P (MAP) Pulse Ox O2 Delivery O2 Flow Rate FiO2 08/16/17 16:00 96.0 63 17 129/77 (94) 99 08/16/17 12:00 96.4 64 17 116/71 (86) 99 08/16/17 09:08 99 21 08/16/17 08:15 84 08/16/17 08:00 96.8 54 17 124/75 (91) 98 08/16/17 03:59 51 08/16/17 03:56 96.4 65 18 118/76 (90) 99 08/16/17 00:00 96.8 69 18 101/61 (74) 99 08/15/17 23:43 56 08/15/17 20:00 98.3 67 20 139/76 (97) 98 08/15/17 19:57 69 08/15/17 19:21 98 21 I/O 08/15/17 08/15/17 08/15/17 08/16/17 08/16/17 08/16/17 07:00 15:00 23:00 07:00 15:00 23:00 Intake Total 720 ml Output Total 2100 ml Balance 720 ml -2100 ml Intake Oral 720 ml Output Urine Total 2100 ml # Voids 3 8 # Bowel Movements 0 Laboratory Date/Time Source Procedure Growth Status 08/11/17 12:30 Blood Peripheral Aerobic Blood Culture - Final NO GROWTH IN 5 DAYS Complete 08/11/17 12:30 Blood Peripheral Anaerobic Blood Culture - Final NO GROWTH IN 5 DAYS Complete 08/11/17 12:30 Nasal Washing Influenza Types A,B Antigen (JESSICA) - Final NEGATIVE FOR FLU A AND B ANTIGEN.... Complete Imaging Last Impressions Carotid Artery Ultrasound 08/14/17 0000 Signed Impressions: Service Date/Time: August 21:05 - CONCLUSION: No evidence for hemodynamically significant stenosis.. Joaquin Juarez MD Aorta w/Runoff CTA 08/14/17 0000 Signed Impressions: Service Date/Time: August 19:23 - CONCLUSION: 1. No significant aortic occlusive disease. 2. Bilateral moderate to severe common iliac artery stenoses, left greater than right. Patient may benefit from iliac intervention. 3. Occluded left SFA with mature profunda collaterals reconstituting the SFA near the adductor canal. 4. Mild tandem stenoses of the right SFA most prominently in the distal thigh. 5. Three-vessel runoff bilaterally. Hugh Thomas MD Barium Swallow X-Ray 08/13/17 0000 Signed Impressions: Service Date/Time: Sunday, August 13, 2017 09:16 - CONCLUSION: 1. Small reducible hiatal hernia. 2. Status post lower cervical fusion. Reza Diaz MD Chest X-Ray 08/11/17 1643 Signed Impressions: Service Date/Time: Friday, August 11, 2017 20:34 - CONCLUSION: Scattered emphysematous changes. Mild degenerative changes and scoliosis of the thoracic spine. Otherwise unremarkable chest. Tucker Steve MD Chest CT 08/11/17 0000 Signed Impressions: Service Date/Time: Friday, August 11, 2017 20:40 - CONCLUSION: 1. Scattered emphysematous changes. 2. 6 mm noncalcified nodule within the left mid lung field which is indeterminate. Followup CT of the chest in 6 months is recommended to confirm stability. 3. Biapical fibrotic scarring. 4. Mild degenerative changes and scoliosis of the thoracic spine. Tucker Steve MD Abdomen/Pelvis CT 08/11/17 0000 Signed Impressions: Service Date/Time: Friday, August 11, 2017 20:40 - CONCLUSION: 1. Uncomplicated colonic diverticulosis. 2. Mild degenerative changes and scoliosis of the lumbar spine. Tucker Steve MD Physical Exam HEENT: PERRL; normocephalic; atraumatic; no jaundice. CHEST: diminished CARDIAC: RRR ABDOMEN: Soft, nondistended, nontender; no hepatosplenomegaly; bowel sounds are present in all four quadrants. EXTREMITIES: No clubbing, cyanosis, or edema. SKIN: Normal; no rash; no jaundice. LIGHTHOUSE KEEPER: No focal deficits; alert and oriented times three. (Jimi Jones) Assessment and Plan Plan ASSESSMENT - BRBPR - intermittent, last episode 2 weeks ago and copious blood filling bowl. never had EGD or colonoscopy. HH WNL - dysphagia - onset 3 weeks ago, bolus sensation with solid foods - weight loss - unclear etiology, could be r/t inactivity 08/15/17 s/p EGD and colonoscopy 08/14 found short segment sims's, gastritis; poor prep & barium seen. No GI complaints today. Ba swallow showed small hernia. 08/16/17 bx from EGD benign with moderate chronic inflammatory changes consistent with reflux negative for metaplasia and dysplasia pt doing good no Gi issues, no bleeding, labs stable PLAN - MICHELLE - repeat colonoscopy 6months, d/w pt - monitor labs - Gi will sign off PT Seen by myself and Dr Webb and this note is written on his behalf (Jimi Jones) Physician Comments Seen and examined with BUSINESS SUPPORT ASSOCIATE, no bleeding. Inpt. gi bermudez completed. Recommend pill cam as oupt. Fu GI in 02 weekd upon dc. Discussed with pt. and at the bedside. thank you (Susan Webb MD) Jimi Jones Aug 16, 2017 16:59 Susan Webb MD Aug 17, 2017 10:28
[2017-08-16] MEDS: FAMOTIDINE 20 MG TAB PO SCH (20:01)
[2017-08-17] VITALS (10 sets, daily range): BP systolic 118–141; BP diastolic 69–85; PULSE 59–81; RESP 17–18; TEMP 96.1–97.9; O2SAT 96–99
[2017-08-17] MEDS: oxyCODONE/ACETAMINOPHEN 10 MG/325 MG TAB PO PRN ×2 (08:46→19:04)
[2017-08-17] MEDS: DOCUSATE SODIUM 50 MG/SENNA 8.6 MG TAB PO SCH ×2 (08:46→20:05)
[2017-08-17] MEDS: LACTOBACILLUS ACIDOPHILUS TAB PO SCH ×3 (08:46→17:12)
[2017-08-17] MEDS: PANTOPRAZOLE SOD 40 MG DELAYED RELEASE TAB PO SCH (08:46)
[2017-08-17] MEDS: guaiFENesin E.R. 600 MG TAB PO SCH ×2 (08:46→20:06)
[2017-08-17] MEDS: REMOVE OLD PATCH T-DERMAL SCH (08:49)
[2017-08-17] MEDS: NICOTINE 14 MG/24 HR PATCH T-DERMAL SCH (08:49)
[2017-08-17] MEDS: BUDESONIDE-FORMOTEROL 160/4.5 MCG INHALER INH SCH ×2 (08:59→20:07)
[2017-08-17] MEDS: SODIUM CHLORIDE 0.9% FLUSH 10 ML FLUSH IV FLUSH SCH ×2 (08:59→20:06)
--- NOTE | 2017-08-17 11:22 | HHI.PR ---
Subjective Remarks Patient reports he is doing okay today. No new issues. Objective Vitals Vital Signs Date Time Temp Pulse Resp B/P (MAP) Pulse Ox O2 Delivery O2 Flow Rate FiO2 08/17/17 09:52 99 08/17/17 09:00 74 08/17/17 08:00 97.1 59 17 139/77 (97) 99 08/17/17 04:05 97.0 70 18 118/69 (85) 96 08/17/17 03:55 73 08/17/17 00:17 96.5 74 18 119/74 (89) 98 08/16/17 23:57 54 08/16/17 21:58 18 08/16/17 20:00 97.0 71 18 132/82 (99) 97 08/16/17 20:00 67 08/16/17 16:00 96.0 63 17 129/77 (94) 99 08/16/17 12:00 96.4 64 17 116/71 (86) 99 I/O 08/16/17 08/16/17 08/16/17 08/17/17 08/17/17 08/17/17 07:00 15:00 23:00 07:00 15:00 23:00 Intake Total 2358 ml 580 ml Output Total 2100 ml Balance -2100 ml 2358 ml 580 ml Intake Oral 2358 ml 580 ml Output Urine Total 2100 ml # Voids 8 4 3 # Bowel Movements 0 0 Objective Remarks GENERAL: This is a well-nourished, well-developed patient, in no apparent distress. CARDIOVASCULAR: Regular rate and rhythm without murmurs, gallops, or rubs. RESPIRATORY: Diminished breath sounds throughout. Clear to auscultation. GASTROINTESTINAL: Abdomen soft, non-tender, nondistended. Normal active bowel sounds MUSCULOSKELETAL: Extremities without clubbing, cyanosis, or edema. NEURO: Alert & Oriented x4 to person, place, time, situation. Moves all ext x4 A/P Problem List: (1) Weight loss ICD Code: R63.4 - Abnormal weight loss Status: Acute Plan: The patient complains of a weight loss of approximately 15-20 pounds in the past 2 months. He states weight loss is unintentional. Patient has had a CT of the chest, abdomen and pelvis. CT chest shows scattered emphysematous changes. 2.6 mm noncalcified nodule within the left midlung field which is indeterminate. Follow-up CT of the chest in 6 months is recommended to confirm stability. DW the patient. CT abdomen shows unconjugated colonic diverticulosis. Mild degenerative changes and a scoliosis of the lumbar spine. 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 Continue PPI. Biopsy negative (2) Dysphagia ICD Code: R13.10 - Dysphagia, unspecified (3) Severe protein-calorie malnutrition ICD Code: E43 - Unspecified severe protein-calorie malnutrition (4) Positive blood cultures ICD Code: R78.81 - Bacteremia Plan: ID consulted. Blood cultures cw contamination. Abx Dced, Repeat blood cultures negative (5) Intermittent claudication ICD Code: I73.9 - Peripheral vascular disease, unspecified Plan: Patient complains of burning and significant pain in the lower extremities when Walking. Consistent with severe claudication. MEHRDAD shows severe disease. Vascular surgery consulted and CTA runoff shows bilateral moderate to severe common iliac artery stenosis, may benefit from iliac intervention. Vascular surgery planning for surgical intervention. Timing to be determined per vascular surgery. (6) Tobacco abuse ICD Code: Z72.0 - Tobacco use Status: Acute Plan: The patient smokes one pack per day. Advised cessation. nicotine patch. (7) Emphysema of lung ICD Code: J43.9 - Emphysema, unspecified Status: Acute Plan: Patient started on Symbicort, DuoNeb treatments as needed, albuterol not an exacerbation at this moment. Discharge Planning Pending intervention by Vascular surgery. Problem Qualifiers (1) Dysphagia: Qualified Codes: R13.10 - Dysphagia, unspecified (2) Emphysema of lung: Qualified Codes: J43.9 - Emphysema, unspecified Veronika Hutson MD Aug 17, 2017 11:22
--- NOTE | 2017-08-17 15:14 | PD.CAR.PN ---
CVT Progress Note Subjective/Hospital Course: Referral received Patient will floor We will see him in a.m. Ashli Rivera 08/14/17 Patient evaluated Full consult dictated Severe peripheral vascular disease with short distance serious claudication CTA with runoff and carotid ultrasound pending Will continue to follow 08/15/17 Patient with severe peripheral vascular disease as above noted and stated in the consult CTA with a runoff is performed and shows exactly what we predicted. Patient has bilateral common iliac artery stenosis and these will need balloon angioplasty and stenting He has common femoral artery stenosis and then SFA bilateral occlusion with reconstitution of the popliteal arteries bilateral Runoff below the knee looks okay but flow is limited so it's hard to tell Patient has severe claudication at about 20 yards and it takes him only to push lawnmower one time across is long before has to stop due to severe calf cramping After looking at the CTA and comparing this the patient's exam I can see why he has such a problem and at this young age patient needs a solid intervention Patient will be scheduled for the bilateral iliac balloon angioplasty and stenting and right femoral-popliteal bypass with either vein or a graft depending how usable the saphenous vein looks of the time of surgery Considering his age I would rather use a vein Perhaps the few months later we can attend the left leg and do femoropopliteal bypass on that side We'll schedule for the procedure it endovascular suite early next week 08/16/17 Patient doing well at this time Scheduled to undergo a right leg revascularization with right iliac balloon angioplasty and stent followed by femoropopliteal bypass We'll go ahead with surgery either Friday or Friday depending on the OR hybrid suite availability 08/17/17 Patient doing well Discussed the care with him Due to the scheduling conflicts patient will have surgery on Friday Answered all the questions and explained details of the operation and postop care Objective: Vital Signs Date Time Temp Pulse Resp B/P (MAP) Pulse Ox O2 Delivery O2 Flow Rate FiO2 08/17/17 12:00 96.1 71 17 135/69 (91) 99 08/17/17 09:52 99 08/17/17 09:00 74 08/17/17 08:00 97.1 59 17 139/77 (97) 99 08/17/17 04:05 97.0 70 18 118/69 (85) 96 08/17/17 03:55 73 08/17/17 00:17 96.5 74 18 119/74 (89) 98 08/16/17 23:57 54 08/16/17 21:58 18 08/16/17 20:00 97.0 71 18 132/82 (99) 97 08/16/17 20:00 67 08/16/17 16:00 96.0 63 17 129/77 (94) 99 Kal Logan MD Aug 17, 2017 15:14
[2017-08-17] MEDS: FAMOTIDINE 20 MG TAB PO SCH (20:05)
[2017-08-17] MEDS: MORPHINE SULFATE 4 MG/ML INJ IV PUSH PRN ×2 (20:06→23:02)
[2017-08-18] VITALS (10 sets, daily range): BP systolic 116–148; BP diastolic 69–80; PULSE 52–81; RESP 16–19; TEMP 95.8–97.9; O2SAT 96–99
[2017-08-18] MEDS: oxyCODONE/ACETAMINOPHEN 10 MG/325 MG TAB PO PRN ×4 (00:56→20:56)
[2017-08-18] MEDS: NICOTINE 14 MG/24 HR PATCH T-DERMAL SCH (08:16)
[2017-08-18] MEDS: guaiFENesin E.R. 600 MG TAB PO SCH ×2 (08:16→20:56)
[2017-08-18] MEDS: LACTOBACILLUS ACIDOPHILUS TAB PO SCH ×3 (08:17→17:23)
[2017-08-18] MEDS: PANTOPRAZOLE SOD 40 MG DELAYED RELEASE TAB PO SCH (08:17)
[2017-08-18] MEDS: DOCUSATE SODIUM 50 MG/SENNA 8.6 MG TAB PO SCH ×2 (08:17→20:56)
[2017-08-18] MEDS: REMOVE OLD PATCH T-DERMAL SCH (08:19)
[2017-08-18] MEDS: BUDESONIDE-FORMOTEROL 160/4.5 MCG INHALER INH SCH ×2 (09:00→20:55)
[2017-08-18] MEDS: SODIUM CHLORIDE 0.9% FLUSH 10 ML FLUSH IV FLUSH SCH ×2 (09:00→20:55)
--- NOTE | 2017-08-18 10:15 | HHI.PR ---
Subjective Remarks Patient has no new complaints. He has questions about what type of graft will be used for his surgery. Tentatively scheduled for tomorrow per vascular surgery. Objective Vitals Vital Signs Date Time Temp Pulse Resp B/P (MAP) Pulse Ox O2 Delivery O2 Flow Rate FiO2 08/18/17 09:14 18 08/18/17 09:01 98 08/18/17 04:03 96.0 68 18 116/69 (85) 98 08/18/17 04:00 52 08/18/17 00:00 58 08/18/17 00:00 96.2 79 18 130/76 (94) 96 08/17/17 23:07 18 08/17/17 20:04 81 08/17/17 20:00 97.7 80 18 141/85 (103) 97 08/17/17 16:00 97.9 70 17 124/74 (91) 99 08/17/17 12:00 96.1 71 17 135/69 (91) 99 I/O 08/17/17 08/17/17 08/17/17 08/18/17 08/18/17 08/18/17 07:00 15:00 23:00 07:00 15:00 23:00 Intake Total 580 ml 1302 ml 780 ml Balance 580 ml 1302 ml 780 ml Intake Oral 580 ml 1302 ml 780 ml # Voids 3 4 4 # Bowel Movements 1 Objective Remarks GENERAL: This is a well-nourished, well-developed patient, in no apparent distress. CARDIOVASCULAR: Regular rate and rhythm without murmurs, gallops, or rubs. RESPIRATORY: Diminished breath sounds throughout. Clear to auscultation. GASTROINTESTINAL: Abdomen soft, non-tender, nondistended. Normal active bowel sounds MUSCULOSKELETAL: Extremities without clubbing, cyanosis, or edema. NEURO: Alert & Oriented x4 to person, place, time, situation. Moves all ext x4 A/P Problem List: (1) Weight loss ICD Code: R63.4 - Abnormal weight loss Status: Acute Plan: The patient complains of a weight loss of approximately 15-20 pounds in the past 2 months. He states weight loss is unintentional. Patient has had a CT of the chest, abdomen and pelvis. CT chest shows scattered emphysematous changes. 2.6 mm noncalcified nodule within the left midlung field which is indeterminate. Follow-up CT of the chest in 6 months is recommended to confirm stability. DW the patient. CT abdomen shows unconjugated colonic diverticulosis. Mild degenerative changes and a scoliosis of the lumbar spine. 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 Continue PPI. Biopsy negative (2) Dysphagia ICD Code: R13.10 - Dysphagia, unspecified (3) Severe protein-calorie malnutrition ICD Code: E43 - Unspecified severe protein-calorie malnutrition (4) Positive blood cultures ICD Code: R78.81 - Bacteremia Plan: ID consulted. Blood cultures cw contamination. Abx Dced, Repeat blood cultures negative (5) Intermittent claudication ICD Code: I73.9 - Peripheral vascular disease, unspecified Plan: Patient complains of burning and significant pain in the lower extremities when Walking. Consistent with severe claudication. MEHRDAD shows severe disease. Vascular surgery consulted and CTA runoff shows bilateral moderate to severe common iliac artery stenosis, may benefit from iliac intervention. Vascular surgery planning for surgical intervention. Timing to be determined per vascular surgery. (6) Tobacco abuse ICD Code: Z72.0 - Tobacco use Status: Acute Plan: The patient smokes one pack per day. Advised cessation. nicotine patch. (7) Emphysema of lung ICD Code: J43.9 - Emphysema, unspecified Status: Acute Plan: Patient started on Symbicort, DuoNeb treatments as needed, albuterol not an exacerbation at this moment. Discharge Planning Pending intervention by Vascular surgery. Problem Qualifiers (1) Dysphagia: Qualified Codes: R13.10 - Dysphagia, unspecified (2) Emphysema of lung: Qualified Codes: J43.9 - Emphysema, unspecified Veronika Hutson MD Aug 18, 2017 10:15
--- NOTE | 2017-08-18 10:26 | PD.CAR.PN ---
CVT Progress Note Subjective/Hospital Course: Referral received Patient will floor We will see him in a.m. Ashli Rivera 08/14/17 Patient evaluated Full consult dictated Severe peripheral vascular disease with short distance serious claudication CTA with runoff and carotid ultrasound pending Will continue to follow 08/15/17 Patient with severe peripheral vascular disease as above noted and stated in the consult CTA with a runoff is performed and shows exactly what we predicted. Patient has bilateral common iliac artery stenosis and these might need balloon angioplasty and stenting He has common femoral artery stenosis and then SFA left occlusion with reconstitution of the popliteal artery. I am a little confused about the CTA orientation and I will discuss this with interventional radiology. Runoff below the knee looks okay but flow is limited so it's hard to tell Patient has severe claudication at about 20 yards and it takes him only to push lawnmower one time across is long before has to stop due to severe calf cramping After looking at the CTA and comparing this the patient's exam I can see why he has such a problem and at this young age patient needs a solid intervention Patient will be scheduled for the bilateral iliac balloon angioplasty and stenting and femoral-popliteal bypass with either vein or a graft depending how usable the saphenous vein looks of the time of surgery We'll schedule for the procedure it endovascular suite early next week 08/16/17 Patient doing well at this time Scheduled to undergo a right leg revascularization with right iliac balloon angioplasty and stent followed by femoropopliteal bypass We'll go ahead with surgery either Friday or Friday depending on the OR hybrid suite availability 08/17/17 Patient doing well Discussed the care with him Due to the scheduling conflicts patient will have surgery on Friday Answered all the questions and explained details of the operation and postop care 08/18/17 Patient doing well Scheduled tomorrow for the right iliac and possible left iliac angioplasty stent placement and femoropopliteal bypass Surgery has been explained to the patient risks and benefits explained and all the answers given Objective: Vital Signs Date Time Temp Pulse Resp B/P (MAP) Pulse Ox O2 Delivery O2 Flow Rate FiO2 08/18/17 09:14 18 08/18/17 09:01 98 08/18/17 04:03 96.0 68 18 116/69 (85) 98 08/18/17 04:00 52 08/18/17 00:00 58 08/18/17 00:00 96.2 79 18 130/76 (94) 96 08/17/17 23:07 18 08/17/17 20:04 81 08/17/17 20:00 97.7 80 18 141/85 (103) 97 08/17/17 16:00 97.9 70 17 124/74 (91) 99 08/17/17 12:00 96.1 71 17 135/69 (91) 99 Kal Logan MD Aug 18, 2017 10:26
[2017-08-18] MEDS: MORPHINE SULFATE 4 MG/ML INJ IV PUSH PRN ×3 (10:54→21:47)
[2017-08-18] MEDS: FAMOTIDINE 20 MG TAB PO SCH (20:56)
[2017-08-19] VITALS (13 sets, daily range): BP systolic 101–136; BP diastolic 64–83; PULSE 55–83; RESP 16–20; TEMP 96.6–98; O2SAT 97–100
[2017-08-19] MEDS ORDERED: POVIDONE IODINE 5% (ANTISEPSIS KIT) 4 APPLICATIONS EACH NARE PRN (05:45)
[2017-08-19] MEDS ORDERED: METOPROLOL TARTRATE 25 MG TAB PO PRN (05:45)
[2017-08-19] MEDS ORDERED: LACTATED RINGER'S 1000 ML IV PRN (05:45)
[2017-08-19] MEDS ORDERED: CHLORHEXIDINE GLUCONATE 2 % 1 PACK (2 CLOTHS) TOPICAL PRN (05:45)
[2017-08-19] MEDS ORDERED: SODIUM CHLORID 0.9% 500 ML IV PRN (05:45)
[2017-08-19] MEDS: BUDESONIDE-FORMOTEROL 160/4.5 MCG INHALER INH SCH ×2 (07:25→20:30)
[2017-08-19] MEDS: NICOTINE 14 MG/24 HR PATCH T-DERMAL SCH (07:25)
[2017-08-19] MEDS: guaiFENesin E.R. 600 MG TAB PO SCH ×2 (07:26→20:30)
[2017-08-19] MEDS: LACTOBACILLUS ACIDOPHILUS TAB PO SCH ×3 (07:27→18:46)
[2017-08-19] MEDS: DOCUSATE SODIUM 50 MG/SENNA 8.6 MG TAB PO SCH ×2 (07:27→20:31)
[2017-08-19] MEDS: PANTOPRAZOLE SOD 40 MG DELAYED RELEASE TAB PO SCH (07:27)
[2017-08-19] MEDS ORDERED: ceFAZolin INJ 1,000 MG VIAL ONE (07:30)
[2017-08-19] MEDS ORDERED: HEPARIN SODIUM - SQ 10,000 UNITS/ML VIAL ONE (07:30)
[2017-08-19] MEDS ORDERED: HEPARIN SODIUM - IV 10,000 UNITS/10 ML VIAL ONE (07:30)
[2017-08-19] MEDS ORDERED: BUPIVACAINE/EPINEPHRINE 0.5% PF 30 ML VIAL ONE (07:30)
[2017-08-19] MEDS ORDERED: PROTAMINE SULFATE 50 MG/5 ML VIAL ONE (07:30)
[2017-08-19] MEDS: ceFAZolin 2 GM PREMIX 50 ML IV SCH (07:32)
[2017-08-19] MEDS: REMOVE OLD PATCH T-DERMAL SCH (07:33)
[2017-08-19] MEDS: SODIUM CHLORIDE 0.9% FLUSH 10 ML FLUSH IV FLUSH SCH ×2 (07:34→20:30)
--- NOTE | 2017-08-19 09:52 | RSPPFT ---
DATE OF PROCEDURE: 08/15/17 COMMENTS: VOLUMES DYNAMIC: FVC normal; FEV1 moderately reduced. FLOWS: FEV1% moderately reduced; FEF 25-75 severely reduced. IMPRESSION: Moderate obstructive ventilatory defect with no significant improvement post-bronchodilator. This should not preclude a trial of therapy if clinically indicated.
--- NOTE | 2017-08-19 13:53 | HHI.PR ---
Subjective Remarks Follow up claudication/PVD, weight loss. Patient returned from pre-op, no procedure done. Apparently a trauma came in and required the operating room. The patient states that he is hungry. Otherwise no complaints at this time. Objective Vitals Vital Signs Date Time Temp Pulse Resp B/P (MAP) Pulse Ox O2 Delivery O2 Flow Rate FiO2 08/19/17 12:00 97.6 72 16 121/72 (88) 98 08/19/17 08:52 100 08/19/17 08:00 97.4 68 18 134/73 (93) 100 08/19/17 07:30 60 08/19/17 04:46 96.7 57 16 101/66 (78) 100 08/19/17 00:00 96.6 69 16 101/64 (76) 99 08/18/17 23:51 63 08/18/17 20:00 97.0 73 16 121/76 (91) 98 08/18/17 19:49 77 08/18/17 16:00 97.6 69 19 119/78 (92) 98 08/18/17 15:24 18 08/18/17 15:24 18 I/O 08/18/17 08/18/17 08/18/17 08/19/17 08/19/17 08/19/17 07:00 15:00 23:00 07:00 15:00 23:00 Intake Total 780 ml 620 ml Balance 780 ml 620 ml Intake Oral 780 ml 620 ml # Voids 4 4 2 # Bowel Movements 0 Imaging Last Impressions Carotid Artery Ultrasound 08/14/17 0000 Signed Impressions: Service Date/Time: August 21:05 - CONCLUSION: No evidence for hemodynamically significant stenosis.. Joaquin Juarez MD Aorta w/Runoff CTA 08/14/17 0000 Signed Impressions: Service Date/Time: August 19:23 - CONCLUSION: 1. No significant aortic occlusive disease. 2. Bilateral moderate to severe common iliac artery stenoses, left greater than right. Patient may benefit from iliac intervention. 3. Occluded left SFA with mature profunda collaterals reconstituting the SFA near the adductor canal. 4. Mild tandem stenoses of the right SFA most prominently in the distal thigh. 5. Three-vessel runoff bilaterally. Hugh Thomas MD Barium Swallow X-Ray 08/13/17 0000 Signed Impressions: Service Date/Time: Sunday, August 13, 2017 09:16 - CONCLUSION: 1. Small reducible hiatal hernia. 2. Status post lower cervical fusion. Reza Diaz MD Chest X-Ray 08/11/17 1643 Signed Impressions: Service Date/Time: Friday, August 11, 2017 20:34 - CONCLUSION: Scattered emphysematous changes. Mild degenerative changes and scoliosis of the thoracic spine. Otherwise unremarkable chest. Tucekr Steve MD Chest CT 08/11/17 0000 Signed Impressions: Service Date/Time: Friday, August 11, 2017 20:40 - CONCLUSION: 1. Scattered emphysematous changes. 2. 6 mm noncalcified nodule within the left mid lung field which is indeterminate. Followup CT of the chest in 6 months is recommended to confirm stability. 3. Biapical fibrotic scarring. 4. Mild degenerative changes and scoliosis of the thoracic spine. Tucker Steve MD Abdomen/Pelvis CT 08/11/17 0000 Signed Impressions: Service Date/Time: Friday, August 11, 2017 20:40 - CONCLUSION: 1. Uncomplicated colonic diverticulosis. 2. Mild degenerative changes and scoliosis of the lumbar spine. Tucker Steve MD Objective Remarks General: No acute distress. Heart: Regular rate and rhythm. No murmur. Lungs: Clear to auscultation bilaterally. No wheezes, rales, or rhonchi. Breathing is nonlabored. Abdomen: Soft, nontender, nondistended. Extremities: No lower extremity edema. SCDs. Psych: Alert and oriented. Urinary Catheter: No Vascular Central Line Catheter: No A/P Problem List: (1) Weight loss ICD Code: R63.4 - Abnormal weight loss Status: Acute (2) Dysphagia ICD Code: R13.10 - Dysphagia, unspecified (3) Severe protein-calorie malnutrition ICD Code: E43 - Unspecified severe protein-calorie malnutrition (4) Positive blood cultures ICD Code: R78.81 - Bacteremia (5) Intermittent claudication ICD Code: I73.9 - Peripheral vascular disease, unspecified (6) Tobacco abuse ICD Code: Z72.0 - Tobacco use Status: Acute (7) Emphysema of lung ICD Code: J43.9 - Emphysema, unspecified Status: Acute Assessment and Plan 1. Peripheral vascular disease, intermittent claudication: Scheduled for femoropopliteal bypass per vascular surgery. 2. Weight loss: Patient has had unintentional weight loss of 15-20 pounds in the past 2 months. There is a 2.6 mm noncalcified nodule in the left midlung field which is indeterminate. Follow-up CT of the chest in 6 months to confirm stability. This has been discussed with the patient. Patient has dysphagia. EGD and colonoscopy showed Ray's esophagus and hemorrhoids. Continue PPI. 3. Bacteremia: Repeat blood cultures are negative. Likely contamination. Antibiotics discontinued. Appreciate infectious disease recommendations. 4. Tobacco abuse: Counseled to quit smoking. 5. Emphysema: Continue Symbicort, DuoNeb, albuterol. Not currently in exacerbation. Discharge Planning Pending vascular surgery intervention. Problem Qualifiers (1) Dysphagia: Qualified Codes: R13.10 - Dysphagia, unspecified (2) Emphysema of lung: Qualified Codes: J43.9 - Emphysema, unspecified Gabe Browning MD Aug 19, 2017 13:53
[2017-08-19] MEDS ORDERED: MIDAZOLAM HCL 2 MG/2 ML VIAL ONE (15:19)
[2017-08-19] MEDS ORDERED: IODIXANOL 320 MG/ML 50 ML VIAL (for RAD SPEC) I-ARTERIAL ONE (16:28)
--- NOTE | 2017-08-19 17:12 | PD.CAR.PN ---
CVT Progress Note Subjective/Hospital Course: Referral received Patient will floor We will see him in a.m. Ashli Rivera 08/14/17 Patient evaluated Full consult dictated Severe peripheral vascular disease with short distance serious claudication CTA with runoff and carotid ultrasound pending Will continue to follow 08/15/17 Patient with severe peripheral vascular disease as above noted and stated in the consult CTA with a runoff is performed and shows exactly what we predicted. Patient has bilateral common iliac artery stenosis and these will need balloon angioplasty and stenting He has common femoral artery stenosis and then SFA bilateral occlusion with reconstitution of the popliteal arteries bilateral Runoff below the knee looks okay but flow is limited so it's hard to tell Patient has severe claudication at about 20 yards and it takes him only to push lawnmower one time across is long before has to stop due to severe calf cramping After looking at the CTA and comparing this the patient's exam I can see why he has such a problem and at this young age patient needs a solid intervention Patient will be scheduled for the bilateral iliac balloon angioplasty and stenting and right femoral-popliteal bypass with either vein or a graft depending how usable the saphenous vein looks of the time of surgery Considering his age I would rather use a vein Perhaps the few months later we can attend the left leg and do femoropopliteal bypass on that side We'll schedule for the procedure it endovascular suite early next week 08/16/17 Patient doing well at this time Scheduled to undergo a right leg revascularization with right iliac balloon angioplasty and stent followed by femoropopliteal bypass We'll go ahead with surgery either Friday or Friday depending on the OR hybrid suite availability 08/17/17 Patient doing well Discussed the care with him Due to the scheduling conflicts patient will have surgery on Friday Answered all the questions and explained details of the operation and postop care 08/18/17 Patient doing well Scheduled tomorrow for the right iliac and possible left iliac angioplasty stent placement and right femoropopliteal bypass Surgery has been explained to the patient risks and benefits explained and all the answers given 08/19/2017 Patient taken to the endovascular suite today for iliac angiogram with possible balloon angioplasty and stenting Arteriogram with a run of obtained which reveals moderate stenosis of common iliac arteries somewhat less prominent than on the CTA Gradients obtained which on no more than 10 mmHg on both sides and therefore there is no point in placing any stents there In addition, runoff reveals a right SFA to be somewhat ratty but patent and looks better than on the CTA although patient has more symptoms on the right side for some reason On the other hand the left SFA is completely occluded with reconstitution of the popliteal artery I explained to the patient that we could hold and do nothing right now and then put patient on exercise regimen and see how he does but he states he cannot walk more than 20 yards without stopping so he wants something done about especially being younger patient who is still active I also explained the risks and benefits of the surgery. At this point we will proceed with a left femoral-popliteal bypass Objective: Vital Signs Date Time Temp Pulse Resp B/P (MAP) Pulse Ox O2 Delivery O2 Flow Rate FiO2 08/19/17 12:00 97.6 72 16 121/72 (88) 98 08/19/17 08:52 100 08/19/17 08:00 97.4 68 18 134/73 (93) 100 08/19/17 07:30 60 08/19/17 04:46 96.7 57 16 101/66 (78) 100 08/19/17 00:00 96.6 69 16 101/64 (76) 99 08/18/17 23:51 63 08/18/17 20:00 97.0 73 16 121/76 (91) 98 08/18/17 19:49 77 Kal Logan MD Aug 19, 2017 17:12
--- NOTE | 2017-08-19 17:42 | PD.RAD ---
Post Procedure Progress Note Pre Procedure Diagnosis: (1) Claudication in peripheral vascular disease Post Procedure Diagnosis: (1) Claudication in peripheral vascular disease Procedure Date: Aug 19, 2017 Supervising Radiologist: Bobo Joyner Assisting Physician: Kal Logan MD Proceduralist/Assist: Jax Bird, RT(R) Estimated blood loss: 10ml Anesthesia: Local, Conscious Sedation Plan of Activity Patient to Unit: ROPU Patient Condition: Good See PACS Report for procedural detail/treatment Vascular-Arterial Procedure Procedure 1 Procedure Site: Bilateral Leg Procedure(s): Angiogram Access Access Site(s): Left Femoral Artery Closure Site(s): Left hemostasis patch Findings: mild iliac disease bilaterally with minimal (~10mm Hg) gradients on both sides Right leg runoff is intact and nearly normal Left SFA long segment occlusion with reconstitution of satisfactory above knee popliteal Bobo Joyner MD Aug 19, 2017 17:42
--- NOTE | 2017-08-19 18:07 | RADRPT ---
EXAM DATE/TIME: 08/19/2017 16:14 COMPARISON: No previous studies available for comparison. INDICATIONS : Positive blood cultures.Patient has intermitent claudication with ambulation MEDICAL HISTORY : 1/ Positive blood cultures 2.HTN 3. chronic neck pain 4. chronic back pain 5. smoker SURGICAL HISTORY : 1. disc sugery on neck 2. steroid injections in lower back ENCOUNTER: Initial ACUITY: 2 weeks PAIN SCORE: 3/10 LOCATION: lower back FLUORO TIME: 3.8 minutes IMAGE SERIES: 10 ACCESS SITE: Left Femoral artery SEDATION TIME: 45 minutes CONTRAST: 1.) 50 cc Visipaque (iodixanol) MEDICATION(S): 1.) 3 mg midazolam (Versed) IV 2.) 150 mcg fentanyl (Sublimaze) IV DEVICE(S): 1.) Left common femoral artery Syvek pad TECHNIQUE: The patient was placed supine on the angiography table. The left groin was prepped in sterile fashion . Full sterile technique was used, including cap, mask, sterile gloves and gown and a large sterile s heet. Hand hygiene and 2% chlorhexidine and/or betadine/alcohol prep was utilized per protocol for cu taneous antisepsis with appropriate dry time for site. The skin and subcutaneous tissues were infiltr ated with lidocaine solution. Blunt dissection was utilized to free up the tissues superficial to the access vessel. Ultrasound guidance was utilized using sterile gel and sterile probe cover. Under dir ect ultrasound guidance, micropuncture access was accomplished into the left common femoral artery al lowing placement of a 4 [place] vascular sheath. The ultrasound images depicting access guidance were saved and stored to PACS for permanent record. A 4 [place] Omni flush catheter was introduced and positioned in the low abdominal aorta. Digital subt raction pelvic arteriography was performed. Oblique projections were obtained. Bilateral lower extrem ity runoff arteriography was then accomplished. The Omni flush catheter was used to select over the aortic bifurcation and was manipulated into the c ontralateral right common femoral artery with the angled Glidewire. Pullback pressure gradient measur ements were obtained from the right common femoral back into the abdominal aorta revealing a 10 mm Hg peak systolic pressure gradient through the right iliac system. A 4 [place] Berenstein catheter was then inserted and manipulated into the abdominal aorta. Pullback r ight iliac pressure gradient measurements were obtained revealing a 10 mm pressure gradient from the aorta to the left groin sheath across the left iliac system. The catheter and sheath were removed and hemostasis was achieved at the left groin with direct pressu re and application of hemostatic patch. The patient tolerated the procedure well and was taken to the recovery area in good stable condition. Continuous pulse oximetry, EKG and hemodynamic monitoring was performed throughout the procedure with conscious sedation as outlined above. FINDINGS: Mild common iliac disease is present bilaterally, primarily accounting for 10 mm Hg iliac pressure gr adients. There is no physiologically significant iliac inflow stenosis identified. The common femoral arteries are relatively healthy in appearance. The profundas are patent bilaterall y. Erect in the left leg, the superficial femoral artery is occluded proximally with reconstitution o f the above-knee popliteal which continues intact to the trifurcation. The trifurcation vessels are i ntact. In the contralateral right leg, superficial femoral artery is widely patent throughout. Popliteal art rancho is widely patent throughout. Trifurcation vessels are intact. CONCLUSION: No significant iliac inflow stenosis is identified either radiographically or by hemodynamic measurem ents on either side. Right leg runoff is nearly normal. Left SFA long segment occlusion with reconstitution of satisfactory flow in the above-knee popliteal artery. Bobo Joyner MD on August 19, 2017 at 17:55 Board Certified Radiologist. This report was verified electronically.
[2017-08-19] MEDS: oxyCODONE/ACETAMINOPHEN 10 MG/325 MG TAB PO PRN (18:46)
[2017-08-19] MEDS: FAMOTIDINE 20 MG TAB PO SCH (20:29)
[2017-08-19] MEDS: MORPHINE SULFATE 4 MG/ML INJ IV PUSH PRN (20:40)
[2017-08-20 00:37] VITALS: BP 101/66; PULSE 62; RESP 18; TEMP 96.9; O2SAT 99
[2017-08-20 04:00] VITALS: BP 130/78; PULSE 65; RESP 18; TEMP 96.8; O2SAT 99
[2017-08-20] MEDS: BUDESONIDE-FORMOTEROL 160/4.5 MCG INHALER INH SCH (07:43)
[2017-08-20] MEDS: guaiFENesin E.R. 600 MG TAB PO SCH ×2 (07:45→21:16)
[2017-08-20] MEDS: DOCUSATE SODIUM 50 MG/SENNA 8.6 MG TAB PO SCH ×2 (07:45→21:16)
[2017-08-20] MEDS: PANTOPRAZOLE SOD 40 MG DELAYED RELEASE TAB PO SCH (07:45)
[2017-08-20] MEDS: LACTOBACILLUS ACIDOPHILUS TAB PO SCH ×3 (07:45→18:32)
[2017-08-20] MEDS: oxyCODONE/ACETAMINOPHEN 10 MG/325 MG TAB PO PRN ×2 (07:45→18:33)
[2017-08-20] MEDS: NICOTINE 14 MG/24 HR PATCH T-DERMAL SCH (07:47)
[2017-08-20] MEDS: REMOVE OLD PATCH T-DERMAL SCH (07:47)
[2017-08-20 08:00] VITALS: BP 133/77; PULSE 61; PULSE 74; RESP 15; TEMP 96.9; O2SAT 98
[2017-08-20] MEDS: SODIUM CHLORIDE 0.9% FLUSH 10 ML FLUSH IV FLUSH SCH ×2 (09:00→21:15)
[2017-08-20] MEDS: ceFAZolin 2 GM PREMIX 50 ML IV SCH (10:10)
[2017-08-20] MEDS ORDERED: HEPARIN SODIUM - SQ 10,000 UNITS/ML VIAL ONE ×2 (13:00→13:09)
[2017-08-20] MEDS ORDERED: ceFAZolin INJ 1,000 MG VIAL ONE (13:00)
[2017-08-20] MEDS ORDERED: BUPIVACAINE/EPINEPHRINE 0.5% PF 30 ML VIAL ONE (13:00)
[2017-08-20] MEDS ORDERED: SODIUM CHLORIDE 0.9% 20 ML VIAL ONE (13:00)
[2017-08-20] MEDS ORDERED: NITROGLYCERIN INJ 0 ML ONE (13:01)
[2017-08-20] MEDS ORDERED: VASOPRESSIN 20 UNITS/ML VIAL ONE (13:01)
[2017-08-20] MEDS ORDERED: ACETAMINOPHEN 1000 MG/100 ML 100 ML IV ONE (13:01)
[2017-08-20] MEDS ORDERED: PROTAMINE SULFATE 50 MG/5 ML VIAL ONE (13:01)
[2017-08-20] MEDS ORDERED: HEPARIN SODIUM - IV 10,000 UNITS/10 ML VIAL ONE (13:20)
[2017-08-20] MEDS ORDERED: *MEPERIDINE 25 MG INJ VIAL PERIprocedural Use ONLY ONE (16:04)
[2017-08-20] MEDS ORDERED: *morphine SULFATE 10 MG/ML PERIprocedure ONLY ONE (16:55)
--- NOTE | 2017-08-20 17:03 | HHI.PR ---
Subjective Remarks Follow up PVD, weight loss. Patient seen in PACU. He states that he feels drowsy and has pain in his groin. Denies dyspnea, nausea, vomiting. Objective Vitals Vital Signs Date Time Temp Pulse Resp B/P (MAP) Pulse Ox O2 Delivery O2 Flow Rate FiO2 08/20/17 08:00 74 08/20/17 08:00 96.9 61 15 133/77 (95) 98 08/20/17 04:00 96.8 65 18 130/78 (95) 99 08/20/17 00:37 96.9 62 18 101/66 (78) 99 08/19/17 23:59 55 08/19/17 20:00 98.0 80 18 110/70 (83) 97 08/19/17 19:43 83 08/19/17 17:50 97.6 72 16 121/72 (88) 98 08/19/17 17:22 65 20 136/83 (100) 98 I/O 08/19/17 08/19/17 08/19/17 08/20/17 08/20/17 08/20/17 07:00 15:00 23:00 07:00 15:00 23:00 # Voids 2 1 # Bowel Movements 1 Imaging Last Impressions Angiography 08/19/17 0000 Signed Impressions: Service Date/Time: Saturday, August 19, 2017 16:14 - CONCLUSION: No significant iliac inflow stenosis is identified either radiographically or by hemodynamic measurements on either side. Right leg runoff is nearly normal. Left SFA long segment occlusion with reconstitution of satisfactory flow in the above-knee popliteal artery. Bobo Joyner MD Carotid Artery Ultrasound 08/14/17 0000 Signed Impressions: Service Date/Time: August 21:05 - CONCLUSION: No evidence for hemodynamically significant stenosis.. Joaquin Juarez MD Aorta w/Runoff CTA 08/14/17 0000 Signed Impressions: Service Date/Time: August 19:23 - CONCLUSION: 1. No significant aortic occlusive disease. 2. Bilateral moderate to severe common iliac artery stenoses, left greater than right. Patient may benefit from iliac intervention. 3. Occluded left SFA with mature profunda collaterals reconstituting the SFA near the adductor canal. 4. Mild tandem stenoses of the right SFA most prominently in the distal thigh. 5. Three-vessel runoff bilaterally. Hugh Thomas MD Barium Swallow X-Ray 08/13/17 0000 Signed Impressions: Service Date/Time: Sunday, August 13, 2017 09:16 - CONCLUSION: 1. Small reducible hiatal hernia. 2. Status post lower cervical fusion. Reza Diaz MD Chest X-Ray 08/11/17 1643 Signed Impressions: Service Date/Time: Friday, August 11, 2017 20:34 - CONCLUSION: Scattered emphysematous changes. Mild degenerative changes and scoliosis of the thoracic spine. Otherwise unremarkable chest. Tucker Steve MD Chest CT 08/11/17 0000 Signed Impressions: Service Date/Time: Friday, August 11, 2017 20:40 - CONCLUSION: 1. Scattered emphysematous changes. 2. 6 mm noncalcified nodule within the left mid lung field which is indeterminate. Followup CT of the chest in 6 months is recommended to confirm stability. 3. Biapical fibrotic scarring. 4. Mild degenerative changes and scoliosis of the thoracic spine. Tucker Steve MD Abdomen/Pelvis CT 08/11/17 0000 Signed Impressions: Service Date/Time: Friday, August 11, 2017 20:40 - CONCLUSION: 1. Uncomplicated colonic diverticulosis. 2. Mild degenerative changes and scoliosis of the lumbar spine. Tucker Steve MD Objective Remarks General: No acute distress. Heart: Regular rate and rhythm. No murmur. Lungs: Clear to auscultation bilaterally. No wheezes, rales, or rhonchi. Breathing is nonlabored. Abdomen: Soft, nontender, nondistended. Extremities: No lower extremity edema. SCDs. Psych: Alert, somewhat drowsy from anesthesia. Urinary Catheter: Yes Assessment to: Continue Dowd insert reason: Surgical/Invasive Proced Vascular Central Line Catheter: No A/P Problem List: (1) Weight loss ICD Code: R63.4 - Abnormal weight loss Status: Acute (2) Dysphagia ICD Code: R13.10 - Dysphagia, unspecified (3) Severe protein-calorie malnutrition ICD Code: E43 - Unspecified severe protein-calorie malnutrition (4) Positive blood cultures ICD Code: R78.81 - Bacteremia (5) Intermittent claudication ICD Code: I73.9 - Peripheral vascular disease, unspecified (6) Tobacco abuse ICD Code: Z72.0 - Tobacco use Status: Acute (7) Emphysema of lung ICD Code: J43.9 - Emphysema, unspecified Status: Acute Assessment and Plan 1. Peripheral vascular disease, intermittent claudication: Seen in PACU immediately following vascular surgery procedure. Continue pain control. Appreciate vascular surgery recommendations. 2. Weight loss: Patient has had unintentional weight loss of 15-20 pounds in the past 2 months. There is a 2.6 mm noncalcified nodule in the left midlung field which is indeterminate. Follow-up CT of the chest in 6 months to confirm stability. This has been discussed with the patient. Patient has dysphagia. EGD and colonoscopy showed Ray's esophagus and hemorrhoids. Continue PPI. 3. Bacteremia: Repeat blood cultures are negative. Likely contamination. Antibiotics discontinued. Appreciate infectious disease recommendations. 4. Tobacco abuse: Counseled to quit smoking. 5. Emphysema: Continue Symbicort, DuoNeb, albuterol. Not currently in exacerbation. Discharge Planning Pending vascular surgery clearance. Problem Qualifiers (1) Dysphagia: Qualified Codes: R13.10 - Dysphagia, unspecified (2) Emphysema of lung: Qualified Codes: J43.9 - Emphysema, unspecified Gabe Browning MD Aug 20, 2017 17:03
[2017-08-20] MEDS ORDERED: DO NOT ADM ANY ANTICOAGULANT DRUGS PRN (17:15)
[2017-08-20 20:00] VITALS: BP 121/81; PULSE 90; RESP 16; TEMP 96.9; O2SAT 100
[2017-08-20] MEDS: FAMOTIDINE 20 MG TAB PO SCH (21:16)
[2017-08-20] MEDS: MORPHINE SULFATE 4 MG/ML INJ IV PUSH PRN (21:24)
[2017-08-21] VITALS: BP 114/74; PULSE 79; RESP 16; TEMP 97.9; O2SAT 99
[2017-08-21] MEDS: BUDESONIDE-FORMOTEROL 160/4.5 MCG INHALER INH SCH ×2 (00:26→08:22)
[2017-08-21] MEDS: oxyCODONE/ACETAMINOPHEN 10 MG/325 MG TAB PO PRN ×2 (00:28→08:21)
[2017-08-21] MEDS: MORPHINE SULFATE 4 MG/ML INJ IV PUSH PRN ×3 (01:31→10:06)
[2017-08-21] MEDS: SODIUM CHLORIDE 0.9% FLUSH 10 ML FLUSH IV FLUSH PRN ×2 (01:32→06:45)
[2017-08-21 04:00] VITALS: BP 101/61; PULSE 70; RESP 15; TEMP 98.1; O2SAT 100
[2017-08-21 08:00] VITALS: BP 105/66; PULSE 68; RESP 17; TEMP 97.7; O2SAT 100
[2017-08-21] MEDS: REMOVE OLD PATCH T-DERMAL SCH (08:20)
[2017-08-21] MEDS: NICOTINE 14 MG/24 HR PATCH T-DERMAL SCH (08:20)
[2017-08-21] MEDS: LACTOBACILLUS ACIDOPHILUS TAB PO SCH ×2 (08:20→13:00)
[2017-08-21] MEDS: guaiFENesin E.R. 600 MG TAB PO SCH (08:20)
[2017-08-21] MEDS: PANTOPRAZOLE SOD 40 MG DELAYED RELEASE TAB PO SCH (08:20)
[2017-08-21] MEDS: DOCUSATE SODIUM 50 MG/SENNA 8.6 MG TAB PO SCH (08:21)
[2017-08-21] MEDS: SODIUM CHLORIDE 0.9% FLUSH 10 ML FLUSH IV FLUSH SCH (08:22)
[2017-08-21 11:54] LABS: AUTOMATED NEUTROPHIL # 6.2 TH/MM3 (1.8-7.7); BASOPHIL # 0.1 TH/MM3 (0-0.2); BASOPHIL % 0.8 % (0.0-2.0); EOSINOPHIL # 0.3 TH/MM3 (0-0.4); HEMATOCRIT 37.3 % (39.0-51.0); HEMOGLOBIN 12.9 GM/DL (13.0-17.0); LYMPH % 17.4 % (9.0-44.0); LYMPHOCYTE # 1.6 TH/MM3 (1.0-4.8); MEAN CELL VOLUME 94.7 FL (80.0-100.0); MEAN CORPUSCULAR HEMOGLOBIN 32.8 PG (27.0-34.0); MEAN CORPUSCULAR HGB CONC 34.7 % (32.0-36.0); MEAN PLATELET VOLUME 8.6 FL (7.0-11.0); MONO % 11.4 % (0.0-8.0); NEUT % 67.4 % (16.0-70.0); PLATELET COUNT 197 TH/MM3 (150-450); RED BLOOD COUNT 3.94 MIL/MM3 (4.50-5.90); RED CELL DISTRIBUTION WIDTH 13.8 % (11.6-17.2); WHITE BLOOD COUNT 9.1 TH/MM3 (4.0-11.0)
[2017-08-21 12:00] VITALS: BP 128/75; PULSE 76; RESP 16; TEMP 98.4; O2SAT 97
[2017-08-21 12:25] LABS: BICARBONATE 28.2 MEQ/L (21.0-32.0); CALCIUM 8.6 MG/DL (8.5-10.1); CREATININE 0.97 MG/DL (0.60-1.30)
--- NOTE | 2017-08-21 12:58 | MP ---
cc: KAL LIMA MD DATE OF SURGERY 08/20/2017 PREOPERATIVE DIAGNOSIS Peripheral vascular disease, claudication, left SFA occlusion. POSTOPERATIVE DIAGNOSIS Peripheral vascular disease, claudication, left SFA occlusion. OPERATIVE PROCEDURE Left femoral-popliteal bypass with 8 mm PTFE graft. SURGEON Kal Lima MD ANESTHESIA General ESTIMATED BLOOD LOSS 50 cc PROCEDURE NOTE The patient prepped and draped in the usual fashion. A left groin incision was made. The common femoral, deep femoral, superficial femoral arteries are isolated and a vessel loop is placed around each respectively. Now the popliteal space is entered through a median incision and popliteal artery is isolated. A vessel loop is placed on that one as well. The Doppler is checked and there is a poor flow, but present flow in the popliteal artery. A soft portion of the popliteal artery is chosen somewhat distally. The patient is given 7000 units of heparin. A [place] tunneler is now entered from distal to proximal and then the 8 mm [place] graft is pulled through. The rings are removed as necessary for the anastomosis. Popliteal anastomosis now attended first. Distally a [place] clamp is applied, proximally a profunda clamp is applied and vessel is opened longitudinal with Capellan scissors. Back bleeding is checked by removing the [place] clamp and its nice and actually adequate. The vessel does not look bad in this area but just proximal to it, it is completely occluded. The graft is now cut in an oblique angle with an 11 blade and sutured creating the anastomosis with running 5-0 Prolene. Once this was completed, the clamps removed from the vessel and graft is flushed with heparinized saline and clamped itself allowing the blood flow to continue through the [place] vasculature. The proximal anastomosis was now attended. The Satinsky clamp is applied to the distal external iliac artery i.e. proximal common femoral and profunda flap to deep femoral vessel was now opened longitudinal about an inch in length and then there is noted to have some plaque in it which is probably partially occluding the vessel about 60-70%. Therefore this plaque is removed using a [place] dissector in the media plane. Once endarterectomy is completed, there is excellent backbleeding from the deep femoral artery as well. The Satinsky is flushed and there is excellent inflow. A graft is now cut to size in an oblique angle to accommodate for the length of the arteriotomy and sewn in with running 5-0 Prolene. Once the anastomosis was completed, the blood flow was reestablished in the usual order and fashion and checked with Doppler. Now the patient has a bounding pulse in his popliteal artery and foot is nice and warm. The area irrigated with copious amounts of saline. Meticulous hemostasis assured. The incisions closed in layers with 0 Vicryl and 4-0 Monocryl for skin. A dressing applied. The patient tolerated the procedure well, taken to Recovery Room in stable condition. Kal VALDES /7:45 PM 12:43 PM
[2017-08-21] MEDS ORDERED: AMLO10 PO (13:48)
[2017-08-21] MEDS ORDERED: PLAV75TA29 PO (13:48)
[2017-08-21] MEDS ORDERED: OXYC1TAB63 PO (13:48)
--- NOTE | 2017-08-21 13:48 | HHI.DCPOC ---
Discharge Care Plan Diagnosis: (1) Claudication in peripheral vascular disease (2) Severe protein-calorie malnutrition (3) Weight loss (4) Tobacco abuse Goals to Promote Your Health * To prevent worsening of your condition and complications * To maintain your health at the optimal level Directions to Meet Your Goals Take your medications as prescribed Follow your dietary instruction Follow activity as directed Keep your appointments as scheduled Take your immunizations and boosters as scheduled If your symptoms worsen call your PCP, if no PCP go to Urgent Care Center or Emergency Room Smoking is Dangerous to Your Health. Avoid second hand smoke Call the 24-hour hour crisis hotline for domestic abuse at Gabe Browning MD Aug 21, 2017 13:48
--- NOTE | 2017-08-21 13:54 | HHI.DS ---
Discharge Summary Admission Date Aug 11, 2017 at 14:31 Discharge Date: Aug 21, 2017 Admitting Diagnosis Positive blood culture (1) Weight loss ICD Code: R63.4 - Abnormal weight loss Status: Acute (2) Dysphagia ICD Code: R13.10 - Dysphagia, unspecified (3) Severe protein-calorie malnutrition ICD Code: E43 - Unspecified severe protein-calorie malnutrition (4) Positive blood cultures ICD Code: R78.81 - Bacteremia (5) Intermittent claudication ICD Code: I73.9 - Peripheral vascular disease, unspecified (6) Tobacco abuse ICD Code: Z72.0 - Tobacco use Status: Acute (7) Emphysema of lung ICD Code: J43.9 - Emphysema, unspecified Status: Acute Procedures 08/20/17 left femoral-popliteal bypass Brief History - From Admission Patient is a 52-year-old gentleman. He presented to the emergency department after being seen here and had positive blood cultures. He was told to come back to the hospital for further evaluation. His blood cultures are currently positive for STAPH SCHLEIF[employer]I CO[employer]ULANS with positive sensitivity for Levaquin. We'll consult infectious disease. Patient also states he's had maybe a 20 pound weight loss with inactivity over the last 6-7 months due to his injury to his back from Workmen's Comp. States he has had multiple steroid injections in his back CBC/BMP: 08/21/17 1035 08/21/17 1035 Significant Findings Laboratory Tests Test 08/21/17 10:35 Red Blood Count 3.94 MIL/MM3 (4.50-5.90) Hemoglobin 12.9 GM/DL (13.0-17.0) Hematocrit 37.3 % (39.0-51.0) Monocytes (%) (Auto) 11.4 % (0.0-8.0) Monocytes # (Auto) 1.0 TH/MM3 (0-0.9) Estimat Glomerular Filtration Rate 82 ML/MIN (>89) Imaging Last Impressions Angiography 08/19/17 0000 Signed Impressions: Service Date/Time: Saturday, August 19, 2017 16:14 - CONCLUSION: No significant iliac inflow stenosis is identified either radiographically or by hemodynamic measurements on either side. Right leg runoff is nearly normal. Left SFA long segment occlusion with reconstitution of satisfactory flow in the above-knee popliteal artery. Bobo Joyner MD Carotid Artery Ultrasound 08/14/17 0000 Signed Impressions: Service Date/Time: August 21:05 - CONCLUSION: No evidence for hemodynamically significant stenosis.. Joaquin Juarez MD Aorta w/Runoff CTA 08/14/17 0000 Signed Impressions: Service Date/Time: August 19:23 - CONCLUSION: 1. No significant aortic occlusive disease. 2. Bilateral moderate to severe common iliac artery stenoses, left greater than right. Patient may benefit from iliac intervention. 3. Occluded left SFA with mature profunda collaterals reconstituting the SFA near the adductor canal. 4. Mild tandem stenoses of the right SFA most prominently in the distal thigh. 5. Three-vessel runoff bilaterally. Hugh Thomas MD Barium Swallow X-Ray 08/13/17 0000 Signed Impressions: Service Date/Time: Sunday, August 13, 2017 09:16 - CONCLUSION: 1. Small reducible hiatal hernia. 2. Status post lower cervical fusion. Reza Diaz MD Chest X-Ray 08/11/17 1643 Signed Impressions: Service Date/Time: Friday, August 11, 2017 20:34 - CONCLUSION: Scattered emphysematous changes. Mild degenerative changes and scoliosis of the thoracic spine. Otherwise unremarkable chest. Tucker Steve MD Chest CT 08/11/17 0000 Signed Impressions: Service Date/Time: Friday, August 11, 2017 20:40 - CONCLUSION: 1. Scattered emphysematous changes. 2. 6 mm noncalcified nodule within the left mid lung field which is indeterminate. Followup CT of the chest in 6 months is recommended to confirm stability. 3. Biapical fibrotic scarring. 4. Mild degenerative changes and scoliosis of the thoracic spine. Tucker Steve MD Abdomen/Pelvis CT 08/11/17 0000 Signed Impressions: Service Date/Time: Friday, August 11, 2017 20:40 - CONCLUSION: 1. Uncomplicated colonic diverticulosis. 2. Mild degenerative changes and scoliosis of the lumbar spine. Tucker Steve MD PE at Discharge General: No acute distress. Heart: Regular rate and rhythm. No murmur. Lungs: Clear to auscultation bilaterally. No wheezes, rales, or rhonchi. Breathing is nonlabored. Abdomen: Soft, nontender, nondistended. Extremities: No lower extremity edema. SCDs. Psych: Alert, oriented. Pt update on day of discharge No complaints at this time. He wants to go home. He has been cleared for discharge by vascular surgery. Hospital Course The patient was admitted for evaluation of recent positive blood cultures and weight loss. Repeat blood cultures were negative. He was started on antibiotics and infectious disease was consulted. Antibiotics were discontinued. He was cleared for discharge by infectious disease. The patient developed bright red blood per rectum and gastroenterology was consulted. EGD and colonoscopy were done, showing Ray's esophagus and mild gastritis. GI symptoms improved. Vascular surgery was consulted for evaluation of intermittent claudication secondary to peripheral vascular disease. Patient was found to have severe peripheral vascular disease and femoral popliteal bypass was done. The patient was cleared for discharge by vascular surgery. Pt Condition on Discharge: Stable Discharge Disposition: Discharge Home Discharge Time: > 30 minutes Discharge Instructions DIET: Follow Instructions for: Heart Healthy Diet Activities you can perform: Regular-No Restrictions Follow up Referrals: PCP Follow-up - 1 Week Vascular Surgery - 1 Week with Kal Logan MD New Medications: Clopidogrel (Plavix) 75 Mg Tab 75 MG PO DAILY for Blood Clot Prevention, #30 TAB 0 Refills Amlodipine (Norvasc) 10 Mg Tab 10 MG PO DAILY for Blood Pressure Management, #30 TAB 0 Refills Oxycodone HCl/Acetaminophen (Oxycodone-Acetaminophen 5-325) 5 Mg-325 Mg Tablet 1 TAB PO Q6H PRN for PAIN SCALE 4 TO 10, #12 TAB 0 Refills Discontinued Medications: Amlodipine (Norvasc) 5 Mg Tab 5 MG PO DAILY for Blood Pressure Management, #30 TAB 0 Refills Gabe Browning MD Aug 21, 2017 13:54
--- NOTE | 2017-08-21 17:11 | PD.CAR.PN ---
CVT Progress Note Subjective/Hospital Course: Referral received Patient will floor We will see him in a.m. Ashli Rivera 08/14/17 Patient evaluated Full consult dictated Severe peripheral vascular disease with short distance serious claudication CTA with runoff and carotid ultrasound pending Will continue to follow 08/15/17 Patient with severe peripheral vascular disease as above noted and stated in the consult CTA with a runoff is performed and shows exactly what we predicted. Patient has bilateral common iliac artery stenosis and these might need balloon angioplasty and stenting He has common femoral artery stenosis and then SFA left occlusion with reconstitution of the popliteal artery. I am a little confused about the CTA orientation and I will discuss this with interventional radiology. Runoff below the knee looks okay but flow is limited so it's hard to tell Patient has severe claudication at about 20 yards and it takes him only to push lawnmower one time across is long before has to stop due to severe calf cramping After looking at the CTA and comparing this the patient's exam I can see why he has such a problem and at this young age patient needs a solid intervention Patient will be scheduled for the bilateral iliac balloon angioplasty and stenting and femoral-popliteal bypass with either vein or a graft depending how usable the saphenous vein looks of the time of surgery We'll schedule for the procedure it endovascular suite early next week 08/16/17 Patient doing well at this time Scheduled to undergo a right leg revascularization with right iliac balloon angioplasty and stent followed by femoropopliteal bypass We'll go ahead with surgery either Friday or Friday depending on the OR hybrid suite availability 08/17/17 Patient doing well Discussed the care with him Due to the scheduling conflicts patient will have surgery on Friday Answered all the questions and explained details of the operation and postop care 08/18/17 Patient doing well Scheduled tomorrow for the right iliac and possible left iliac angioplasty stent placement and femoropopliteal bypass Surgery has been explained to the patient risks and benefits explained and all the answers given 08/21/2017 Status post left femoral-popliteal bypass Incisions are clean and dry Patient has bounding distal pulses and foot is warm Patient has some numbness in the medial thigh which is clearly due to the surgery transection of the skin nerves and should gradually improve over time Patient can ambulate unlimited and can be discharged from my point any time May shower tomorrow Follow-up with me 2-3 weeks in the office Objective: Vital Signs Date Time Temp Pulse Resp B/P (MAP) Pulse Ox O2 Delivery O2 Flow Rate FiO2 08/21/17 12:00 98.4 76 16 128/75 (92) 97 08/21/17 08:00 97.7 68 17 105/66 (79) 100 08/21/17 04:00 98.1 70 15 101/61 (74) 100 08/21/17 00:00 97.9 79 16 114/74 (87) 99 08/20/17 20:00 96.9 90 16 121/81 (94) 100 08/20/17 17:30 98.0 79 20 125/76 (92) 100 Nasal Cannula 2 Labs: Laboratory Tests Test 08/21/17 10:35 White Blood Count 9.1 TH/MM3 (4.0-11.0) Red Blood Count 3.94 MIL/MM3 (4.50-5.90) Hemoglobin 12.9 GM/DL (13.0-17.0) Hematocrit 37.3 % (39.0-51.0) Mean Corpuscular Volume 94.7 FL (80.0-100.0) Mean Corpuscular Hemoglobin 32.8 PG (27.0-34.0) Mean Corpuscular Hemoglobin Concent 34.7 % (32.0-36.0) Red Cell Distribution Width 13.8 % (11.6-17.2) Platelet Count 197 TH/MM3 (150-450) Mean Platelet Volume 8.6 FL (7.0-11.0) Neutrophils (%) (Auto) 67.4 % (16.0-70.0) Lymphocytes (%) (Auto) 17.4 % (9.0-44.0) Monocytes (%) (Auto) 11.4 % (0.0-8.0) Eosinophils (%) (Auto) 3.0 % (0.0-4.0) Basophils (%) (Auto) 0.8 % (0.0-2.0) Neutrophils # (Auto) 6.2 TH/MM3 (1.8-7.7) Lymphocytes # (Auto) 1.6 TH/MM3 (1.0-4.8) Monocytes # (Auto) 1.0 TH/MM3 (0-0.9) Eosinophils # (Auto) 0.3 TH/MM3 (0-0.4) Basophils # (Auto) 0.1 TH/MM3 (0-0.2) CBC Comment DIFF FINAL Differential Comment Blood Urea Nitrogen 17 MG/DL (7-18) Creatinine 0.97 MG/DL (0.60-1.30) Random Glucose 91 MG/DL (74-106) Calcium Level 8.6 MG/DL (8.5-10.1) Sodium Level 138 MEQ/L (136-145) Potassium Level 4.2 MEQ/L (3.5-5.1) Chloride Level 105 MEQ/L (98-107) Carbon Dioxide Level 28.2 MEQ/L (21.0-32.0) Anion Gap 5 MEQ/L (5-15) Estimat Glomerular Filtration Rate 82 ML/MIN (>89) Result Diagram: 08/21/17 1035 08/21/17 1035 Kal Logan MD Aug 21, 2017 17:11
== END 2017-08-21 15:54 | disposition home or self-care (01) | DRG 252 ==
LOC: NEPC 11:44 → NEDA 14:31 → N07B 16:25
PROVIDERS: ADMIT Family Medicine; ATTEND Family Medicine
PROC: 0DJD8ZZ Inspection of Lower Intestinal Tract, Via Natural or Artificial Opening Endoscopic (ICD-10-PCS; 2017-08-14)
PROC: 0DB38ZX Excision of Lower Esophagus, Via Natural or Artificial Opening Endoscopic, Diagnostic (ICD-10-PCS; 2017-08-14)
PROC: 04CL0ZZ Extirpation of Matter from Left Femoral Artery, Open Approach (ICD-10-PCS; 2017-08-20)
PROC: 041L0JL Bypass Left Femoral Artery to Popliteal Artery with Synthetic Substitute, Open Approach (ICD-10-PCS; principal; 2017-08-20 13:14)
DX: I70.262 Atherosclerosis of native arteries of extremities with gangrene, left leg (principal); E43 Unspecified severe protein-calorie malnutrition; Z68.1 Body mass index [BMI] 19.9 or less, adult; J43.9 Emphysema, unspecified; I10 Essential (primary) hypertension; F17.210 Nicotine dependence, cigarettes, uncomplicated; G89.29 Other chronic pain; M54.2 Cervicalgia; Z82.49 Family history of ischemic heart disease and other diseases of the circulatory system; Z80.42 Family history of malignant neoplasm of prostate; K57.30 Diverticulosis of large intestine without perforation or abscess without bleeding; M51.26 Other intervertebral disc displacement, lumbar region; K22.70 Barrett's esophagus without dysplasia; K64.8 Other hemorrhoids; M41.9 Scoliosis, unspecified; K44.9 Diaphragmatic hernia without obstruction or gangrene; K29.70 Gastritis, unspecified, without bleeding; K21.9 Gastro-esophageal reflux disease without esophagitis; I70.8 Atherosclerosis of other arteries
CPT/HCPCS: 36200; 71045; 71046; 71260; 74177; 74230; 75635; 75716; 76937; 80048; 80053; 81001; 82550; 83036; 83735; 84100; 84153; 84154; 84439; 84443; 84484; 85025; 86850; 86900; 86901; 86920; 87040; 87804; 88304; 88305; 93005; 93306; 93880; 93922; 94060; 94150; 94640; 94664; 96365; 99152; 99153; C1768; C1887; C1894; J0131; J0690; J1644; J1956; J2175; J2250; J2270; J2720; J3010; J7030; J7120; Q9963; Q9967

== ENCOUNTER 2017-08-23 16:12 | Inpatient (IN) | payer MEDICAID ==
[~2017-08-23] VITALS: Ht 182.9 cm; Wt 60.4 kg
[~2017-08-23 16:12] MED LIST changes: +AMLO10 PO; -AMLO5 PO; +OXYC1TAB63 PO; +PLAV75TA29 PO
[2017-08-23 16:29] VITALS: BP 155/80; PULSE 102; RESP 18; TEMP 98.3; O2SAT 100
[2017-08-23] MEDS ORDERED: SODIUM CHLOR 0.9% 1000 ML INJ 1,000 ML IV ONE ×2 (16:30→16:45)
[2017-08-23 16:53] VITALS: TEMP 100.7
[2017-08-23 17:01] LABS: BILIRUBIN, URINE NEG (NEG); BLOOD, URINE NEG (NEG); GLUCOSE,URINE NEG (NEG); HYALINE CAST, URINE 1 /lpf (RARE); KETONE, URINE NEG (NEG); NITRITE,URINE NEG (NEG); URINE COLOR LIGHT-YELLOW (YELLW/STRAW); URINE LEUKOCYTE ESTERASE NEG (NEG)
[2017-08-23 17:02] LABS: AUTOMATED NEUTROPHIL # 7.4 TH/MM3 (1.8-7.7); BASOPHIL # 0.1 TH/MM3 (0-0.2); BASOPHIL % 0.6 % (0.0-2.0); EOSINOPHIL # 0.2 TH/MM3 (0-0.4); EOSINOPHIL % 1.5 % (0.0-4.0); HEMATOCRIT 38.7 % (39.0-51.0); HEMOGLOBIN 13.6 GM/DL (13.0-17.0); LYMPH % 19.4 % (9.0-44.0); LYMPHOCYTE # 2.1 TH/MM3 (1.0-4.8); MEAN CELL VOLUME 93.9 FL (80.0-100.0); MEAN CORPUSCULAR HGB CONC 35.1 % (32.0-36.0); MEAN PLATELET VOLUME 8.5 FL (7.0-11.0); MONO % 10.2 % (0.0-8.0); MONOCYTE # 1.1 TH/MM3 (0-0.9); NEUT % 68.3 % (16.0-70.0); PLATELET COUNT 205 TH/MM3 (150-450); RED BLOOD COUNT 4.12 MIL/MM3 (4.50-5.90); RED CELL DISTRIBUTION WIDTH 13.8 % (11.6-17.2); WHITE BLOOD COUNT 10.9 TH/MM3 (4.0-11.0)
[2017-08-23] MEDS ORDERED: VANCOMYCIN INJ 1,000 MG in SODIUM CHLOR 0.9% 250 ML INJ 250 ML IV STA (17:12)
[2017-08-23] MEDS ORDERED: PIPERACIL-TAZO 4.5 GM PREMIX 100 ML IV STA (17:12)
[2017-08-23 17:13] LABS: ALBUMIN 3.5 GM/DL (3.4-5.0); ALT (GPT) 18 U/L (12-78); AST (GOT) 16 U/L (15-37); BICARBONATE 24.9 MEQ/L (21.0-32.0); BLOOD UREA NITROGEN 22 MG/DL (7-18); CALCIUM 9.2 MG/DL (8.5-10.1); CHLORIDE 105 MEQ/L (98-107); GLOMERULAR FILTRATION RATE 71 ML/MIN (>89); GLUCOSE,RANDOM 96 MG/DL (74-106); INTERNATIONAL NORMALIZED RATIO 0.9 RATIO; MAGNESIUM 2.3 MG/DL (1.5-2.5); PROTHROMBIN TIME - PATIENT 9.6 SEC (9.8-11.6); SODIUM (NA) 138 MEQ/L (136-145)
[2017-08-23] MEDS ORDERED: ACETAMINOPHEN 325 MG TAB PO ONE (17:15)
[2017-08-23 17:17] LABS: LACTIC ACID SEPSIS PROTOCOL 2.5 mmol/L (0.4-2.0)
[2017-08-23 17:24] LABS: ACETAMINOPHEN LESS THAN 2.0 MCG/ML (10.0-30.0); ALKALINE PHOSPHATASE 59 U/L (45-117); TOTAL BILIRUBIN ADULT 0.4 MG/DL (0.2-1.0); TOTAL PROTEIN 7.3 GM/DL (6.4-8.2); TROPONIN I LESS THAN 0.02 NG/ML (0.02-0.05)
--- NOTE | 2017-08-23 17:24 | PD ---
HPI Chief Complaint: Altered Mental Status Time Seen by Provider: 16:21 Travel History International Travel<30 days: No Contact w/Intl Traveler<30days: No Traveled to known affect area: No History of Present Illness HPI 52-year-old male that presents to the ED for evaluation of altered mental status. Patient was brought here by ambulance for evaluation of this. Patient has a history of recent surgery and recent admission for positive blood culture. Patient was given antibiotics and finished antibiotics will in the hospital. Patient apparently was found to have also a arterial occlusion for which she had a bypass on the for more artery on the left leg. Patient had the surgery by Dr. Rivera. He has been doing fine on the day of discharge 2 days ago but per family today he started complaining of not feeling well after breakfast and per family very quickly patient became more altered and confused. They could not get anything from him. He was not able to ambulate. He states that the only pain that he has is on his left leg and back. Patient has a history of chronic back problems for which he gets injections. He states having chills and sweats and per family he's been having a lot of chills and sweats the past couple days. Patient himself denies any chest pain or shortness of breath but per family he did complain of shortness of breath initially before he started becoming more altered. He denies any chest pain at the time. He uses a walker to get about since his surgery. He has lost about 20 pounds in the past couple of months. He was admitted recently for positive blood cultures and finished antibiotics. He denies any nausea vomiting diarrhea. My examination patient is very altered. Only oriented to self. Unclear etiology. He does appear to be warm to the touch. Most of the history was obtained from family members. PFSH Past Medical History Arthritis: No Cardiovascular Problems: No Cerebrovascular Accident: No Diminished Hearing: No Genitourinary: No Headaches: Yes Hypertension: Yes Musculoskeletal: Yes (CHRONIC BACK PAIN) Neurologic: Yes Reproductive: No Respiratory: Yes (emphysema) Migraines: No Seizures: No Past Surgical History Abdominal Surgery: No Cardiac Surgery: Yes (bipass ) Ear Surgery: No Endocrine Surgery: No Eye Surgery: No Genitourinary Surgery: No Gynecologic Surgery: No Oral Surgery: No Thoracic Surgery: No Other Surgery: Yes (ARTIFICIAL DISC IN NECK) Social History Alcohol Use: Yes (OCCASIONAL) Tobacco Use: No Substance Use: No Allergies-Medications (Allergen,Severity, Reaction): Coded Allergies: No Known Allergies (Verified Allergy, Unknown, 08/23/17) Reported Meds & Prescriptions Reported Meds & Active Scripts Active Plavix (Clopidogrel Bisulfate) 75 Mg Tab 75 Mg PO DAILY Oxycodone-Acetaminophen 5-325 (Oxycodone HCl/Acetaminophen) 5 Mg-325 Mg Tablet 1 Tab PO Q6H PRN Norvasc (Amlodipine Besylate) 10 Mg Tab 10 Mg PO DAILY Review of Systems Except as stated in HPI: all other systems reviewed are Neg Physical Exam Narrative GENERAL: SKIN: Warm and dry. HEAD: Atraumatic. Normocephalic. EYES: Pupils equal and round 4 mm reactive to light and accommodation. No scleral icterus. No injection or drainage. ENT: No nasal bleeding or discharge. Mucous membranes pink and moist. Tongue is midline. No uvula deviation. NECK: Trachea midline. No JVD. CARDIOVASCULAR: Regular rate and rhythm. No murmurs, S3, S4. RESPIRATORY: No accessory muscle use. Clear to auscultation. Breath sounds equal bilaterally. GASTROINTESTINAL: Abdomen soft, non-tender, nondistended. Hepatic and splenic margins not palpable. MUSCULOSKELETAL: Extremities without clubbing, cyanosis, or edema. No obvious deformities. Full range of motion of the upper extremities. Patient does have scar to the left femoral area and appears to be well-healing with dressing on top. No sign of infection or edema noted in this area. 2+ pulses bilaterally. Sensation intact bilaterally. NEUROLOGICAL: Awake and alert. No obvious cranial nerve deficits. Motor grossly within normal limits. Five out of 5 muscle strength in the arms and legs. Normal speech. PSYCHIATRIC: Appropriate mood and affect; insight and judgment normal. Data Data Last Documented VS Vital Signs Date Time Temp Pulse Resp B/P (MAP) Pulse Ox O2 Delivery O2 Flow Rate FiO2 08/23/17 16:53 100.7 08/23/17 16:29 102 18 100 Room Air Orders Orders Electrocardiogram (08/23/17 16:26) Complete Blood Count With Diff (08/23/17 16:26) Comprehensive Metabolic Panel (08/23/17 16:26) Ckmb (Isoenzyme) Profile (08/23/17 16:26) Troponin I (08/23/17 16:26) Prothrombin Time / Inr (Pt) (08/23/17 16:26) Act Partial Throm Time (Ptt) (08/23/17 16:26) Blood Culture (08/23/17 16:26) Lipase (08/23/17 16:26) Urinalysis - C+S If Indicated (08/23/17 16:26) Cath For Specimen (08/23/17 16:26) Magnesium (Mg) (08/23/17 16:26) Thyroid Stimulating Hormone (08/23/17 16:26) Chest, Single Ap (08/23/17 16:26) Ct Brain W/O Iv Contrast(Rout) (08/23/17 16:26) Iv Access Insert/Monitor (08/23/17 16:26) Ecg Monitoring (08/23/17 16:) Oximetry (08/23/17 16:26) Drug Screen, Random Urine (08/23/17 16:26) Alcohol (Ethanol) (08/23/17 16:26) Salicylates (Aspirin) (08/23/17 16:26) Tylenol (Acetaminophen) (08/23/17 16:26) Sodium Chlor 0.9% 1000 Ml Inj (Ns 1000 M (08/23/17 16:30) Lactic Acid Sepsis Protocol (08/23/17 16:28) Sodium Chlor 0.9% 1000 Ml Inj (Ns 1000 M (08/23/17 16:45) Acetaminophen (Tylenol) (08/23/17 17:15) Sepsis Workup Initiated (08/23/17 ) Influenzae A/B Antigen (08/23/17 17:12) Vancomycin Inj (Vancomycin Inj) (08/23/17 17:12) Piperacil-Tazo 4.5 Gm Premix (Zosyn 4.5 (08/23/17 17:12) Ct Pulmonary Angiogram (08/23/17 ) Us Leg Venous Doppler (08/23/17 ) Iohexol 350 Inj (Omnipaque 350 Inj) (08/23/17 17:56) Admit Order (Ed Use Only) (08/23/17 18:51) Labs Laboratory Tests Test 08/23/17 16:45 White Blood Count 10.9 TH/MM3 Red Blood Count 4.12 MIL/MM3 Hemoglobin 13.6 GM/DL Hematocrit 38.7 % Mean Corpuscular Volume 93.9 FL Mean Corpuscular Hemoglobin 33.0 PG Mean Corpuscular Hemoglobin Concent 35.1 % Red Cell Distribution Width 13.8 % Platelet Count 205 TH/MM3 Mean Platelet Volume 8.5 FL Neutrophils (%) (Auto) 68.3 % Lymphocytes (%) (Auto) 19.4 % Monocytes (%) (Auto) 10.2 % Eosinophils (%) (Auto) 1.5 % Basophils (%) (Auto) 0.6 % Neutrophils # (Auto) 7.4 TH/MM3 Lymphocytes # (Auto) 2.1 TH/MM3 Monocytes # (Auto) 1.1 TH/MM3 Eosinophils # (Auto) 0.2 TH/MM3 Basophils # (Auto) 0.1 TH/MM3 CBC Comment DIFF FINAL Differential Comment Prothrombin Time 9.6 SEC Prothromb Time International Ratio 0.9 RATIO Activated Partial Thromboplast Time 27.3 SEC Urine Color LIGHT-YELLOW Urine Turbidity CLEAR Urine pH 8.0 Urine Specific [place] 1.007 Urine Protein NEG mg/dL Urine Glucose (UA) NEG mg/dL Urine Ketones NEG mg/dL Urine Occult Blood NEG Urine Nitrite NEG Urine Bilirubin NEG Urine Urobilinogen LESS THAN 2.0 MG/DL Urine Leukocyte Esterase NEG Urine RBC LESS THAN 1 /hpf Urine WBC LESS THAN 1 /hpf Urine Hyaline Casts 1 /lpf Microscopic Urinalysis Comment CULT NOT INDICATED Blood Urea Nitrogen 22 MG/DL Creatinine 1.10 MG/DL Random Glucose 96 MG/DL Total Protein 7.3 GM/DL Albumin 3.5 GM/DL Calcium Level 9.2 MG/DL Magnesium Level 2.3 MG/DL Alkaline Phosphatase 59 U/L Aspartate Amino Transf (AST/SGOT) 16 U/L Alanine Aminotransferase (ALT/SGPT) 18 U/L Total Bilirubin 0.4 MG/DL Sodium Level 138 MEQ/L Potassium Level 3.7 MEQ/L Chloride Level 105 MEQ/L Carbon Dioxide Level 24.9 MEQ/L Anion Gap 8 MEQ/L Estimat Glomerular Filtration Rate 71 ML/MIN Lactic Acid Level 2.5 mmol/L Total Creatine Kinase 62 U/L Troponin I LESS THAN 0.02 NG/ML Lipase 82 U/L Thyroid Stimulating Hormone 3rd Gen 7.910 uIU/ML Salicylates Level LESS THAN 1.7 MG/DL Urine Opiates Screen NEG Acetaminophen Level LESS THAN 2.0 MCG/ML Urine Barbiturates Screen NEG Urine Amphetamines Screen NEG Urine Benzodiazepines Screen NEG Urine Cocaine Screen NEG Urine Cannabinoids Screen NEG Ethyl Alcohol Level LESS THAN 3 MG/DL MDM Medical Decision Making Medical Screen Exam Complete: Yes Emergency Medical Condition: Yes Medical Record Reviewed: Yes Interpretation(s) CBC & BMP Diagram 08/23/17 16:45 Total Protein 7.3, Albumin 3.5, Calcium Level 9.2, Magnesium Level 2.3, Alkaline Phosphatase 59, Aspartate Amino Transf (AST/SGOT) 16, Alanine Aminotransferase (ALT/SGPT) 18, Total Bilirubin 0.[address] 08/23/17 1626 Signed Impressions: Service Date/Time: Wednesday, August 23, 2017 17:47 - CONCLUSION: Normal examination. Dick Darden MD Chest X-Ray 08/23/17 1626 Signed Impressions: Service Date/Time: Wednesday, August 23, 2017 17:14 - CONCLUSION: No acute disease. Dick Darden MD CT Angiography 08/23/17 0000 Signed Impressions: Service Date/Time: Wednesday, August 23, 2017 17:51 - CONCLUSION: Normal examination. No evidence of pulmonary embolization in no acute cardiopulmonary process Dick Darden MD UA negative lactic acid of 2.5 coags WNL Differential Diagnosis Sepsis versus altered mental status versus severe sepsis versus CVA versus ACS versus PE versus DVT versus infection Narrative Course 52-year-old male that presents to the ED for evaluation of possible sepsis. Patient was properly examined by me and was found to have signs and symptoms very concerning for sepsis causing encephalopathy. Patient had recent surgery but the surgical site itself does appear to be intact with no signs of infection. Patient was admitted also for positive blood cultures but has not been taking antibiotics since been discharged as he was not sent home with any antibiotics. At this time I recommend labs and imaging. Patient was started on IV fluids. As patient has been here for about half an hour his mentation has improved but does appear to complain in and out. He was started on antibiotics. Patient was found to have a rectal temperature 100.7. Tylenol was given. Labs and imaging showed no sign of acute disease or and the lactic acidosis. Slightly elevated level second. Definite concern for sepsis. Patient still encephalopathic coming in and out. I recommend admission for further evaluation of this. Patient and family agree with this. Patient was on IV antibiotics. Case discussed with Dr. Saldaña who agrees to admission for further eval. Sepsis Criteria SIRS Criteria (2 or more): Temp > 100.9 or < 96.8, Heart rate over 90 Sepsis Criteria (SIRS+source): Infect source susp/known Criteria Outcome: Meets sepsis criteria Diagnosis Primary Impression: Sepsis Qualified Codes: A41.9 - Sepsis, unspecified organism Additional Impression: Altered mental status Qualified Codes: R41.82 - Altered mental status, unspecified Admitting Information Admitting Physician Requests: Admit Kailash Daigle Aug 23, 2017 17:24
--- NOTE | 2017-08-23 17:29 | RADRPT ---
EXAM DATE/TIME: 08/23/2017 17:14 [facility] COMPARISON: No previous studies available for comparison. INDICATIONS : Cough. MEDICAL HISTORY : Hypertension. Palpitations. Dyspnea. Melena. Chronic back pain. SURGICAL HISTORY : Disc surgery in neck. Steroid injections in lower back ENCOUNTER: Initial ACUITY: 1 week PAIN SCORE: 2/10 LOCATION: Bilateral chest FINDINGS: A single view of the chest demonstrates the lungs to be symmetrically aerated without evidence of mas s, infiltrate or effusion. The cardiomediastinal contours are unremarkable. Osseous structures are intact. CONCLUSION: No acute disease. Dick Darden MD on August 23, 2017 at 17:26 Board Certified Radiologist. This report was verified electronically.
[2017-08-23] MEDS ORDERED: IOHEXOL 350 MG/ML 10 ML VIAL (for RAD DIAG) IVCONTRAST ONE (17:56)
--- NOTE | 2017-08-23 18:14 | RADRPT ---
EXAM DATE/TIME: 08/23/2017 17:47 [facility] COMPARISON: No previous studies available for comparison. INDICATIONS : Altered mental status. RADIATION DOSE: 49.77 CTDIvol (mGy) MEDICAL HISTORY : Hypertension. chronic back pain SURGICAL HISTORY : artificial disk in neck ENCOUNTER: Initial ACUITY: 2 days PAIN SCALE: 0/10 LOCATION: cranial TECHNIQUE: Multiple contiguous axial images were obtained of the head. Using automated exposure control and adj ustment of the mA and/or kV according to patient size, radiation dose was kept as low as reasonably a chievable to obtain optimal diagnostic quality images. DICOM format image data is available electro nically for review and comparison. FINDINGS: CEREBRUM: The ventricles are normal for age. No evidence of midline shift, mass lesion, hemorrhage or acute in farction. No extra-axial fluid collections are seen. POSTERIOR FOSSA: The cerebellum and brainstem are intact. The 4th ventricle is midline. The cerebellopontine angle i s unremarkable. EXTRACRANIAL: The visualized portion of the orbits is intact. SKULL: The calvaria is intact. No evidence of skull fracture. CONCLUSION: Normal examination. Dick Darden MD on August 23, 2017 at 17:52 Board Certified Radiologist. This report was verified electronically.
--- NOTE | 2017-08-23 18:19 | RADRPT ---
EXAM DATE/TIME: 08/23/2017 17:51 [facility] COMPARISON: CHEST SINGLE AP, August 23, 2017, 17:14. INDICATIONS : Altered mental status. IV CONTRAST: 74 cc Omnipaque 350 (iohexol) IV RADIATION DOSE: 10.21 CTDIvol (mGy) MEDICAL HISTORY : Hypertension. chronic back pain. SURGICAL HISTORY : artificial disc in neck ENCOUNTER: Initial ACUITY: 2 days PAIN SCALE: 0/10 LOCATION: chest TECHNIQUE: Volumetric scanning of the chest was performed using a pulmonary embolism protocol MIP images were re constructed. Using automated exposure control and adjustment of the mA and/or kV according to patien t size, radiation dose was kept as low as reasonably achievable to obtain optimal diagnostic quality images. DICOM format image data is available electronically for review and comparison. Follow-up recommendations for detected pulmonary nodules are based at a minimum on nodule size and pa tient risk factors according to Fleischner Society Guidelines. FINDINGS: PULMONARY ARTERIES: No filling defects are seen in the pulmonary arteries through the segmental level. LUNGS: There is no consolidation or pneumothorax . No concerning pulmonary nodule is visualized. PLEURAE: There is no pleural thickening or pleural effusion. MEDIASTINUM: There is good visualization of the great vessels of the middle mediastinum. No evidence of mediastin al or hilar adenopathy/mass. MUSCULOSKELETAL: Within normal limits for patient age. MISCELLANEOUS: The visualized upper abdominal organs demonstrate no acute abnormality. CONCLUSION: Normal examination. No evidence of pulmonary embolization in no acute cardiopulmonary process Dick Darden MD on August 23, 2017 at 18:12 Board Certified Radiologist. This report was verified electronically.
--- NOTE | 2017-08-23 18:52 | RADRPT ---
EXAM DATE/TIME: 08/23/2017 18:22 [facility] COMPARISON: No previous studies available for comparison. INDICATIONS : Left leg swelling. MEDICAL HISTORY : Hypertension. Palpitations. Dyspnea. Melena. Chronic back pain. SURGICAL HISTORY : Artificial disc in neck. ENCOUNTER: Initial ACUITY: 3 weeks PAIN SCORE: 7/10 LOCATION: Left leg. TECHNIQUE: Venous ultrasound of the leg was performed from the inguinal ligament to the proximal calf. Real-talha e, color Doppler and spectral tracing, compression and augmentation techniques were used. FINDINGS: There is normal compressibility of the deep venous system from the inguinal region to the proximal ca lf. No echogenic clot is seen in the lumen of the common femoral, femoral, popliteal, and posterior tibial veins. There is a normal response of the venous system to proximal and distal augmentation an d respiration. Iliac vein with normal flow. Examination somewhat limited due to bandages in the groin from recent surgery. CONCLUSION: No evidence of DVT Dick Darden MD on August 23, 2017 at 18:48 Board Certified Radiologist. This report was verified electronically.
[2017-08-23] MEDS ORDERED: ACETAMINOPHEN/HYDROcodone 325 MG/5 MG TAB PO PRN (19:00)
[2017-08-23] MEDS ORDERED: Vancomycin Consult Pharmacy 1 EA OTHER SCH (19:00)
[2017-08-23] MEDS ORDERED: SODIUM CHLORIDE 0.9% FLUSH 10 ML FLUSH IV FLUSH PRN (19:00)
[2017-08-23] MEDS ORDERED: SENNOSIDES 8.6 MG TAB PO PRN (19:00)
[2017-08-23] MEDS ORDERED: LACTULOSE SYRUP 20 GM/30 ML CUP PO PRN (19:00)
[2017-08-23] MEDS ORDERED: BISACODYL 10 MG SUPP RECTAL PRN (19:00)
[2017-08-23] MEDS ORDERED: ACETAMINOPHEN 325 MG TAB PO PRN (19:00)
[2017-08-23] MEDS ORDERED: ONDANSETRON HCL 4 MG/2 ML VIAL IVP PRN (19:00)
[2017-08-23] MEDS ORDERED: MAGNESIUM HYDROXIDE SUSP 30 ML CUP PO PRN (19:00)
--- NOTE | 2017-08-23 19:11 | HHI.HP ---
[facility] No Primary Care Physician Admission Diagnosis acute sepsis, encephalopathy Diagnoses: (1) Sepsis Diagnosis: Principal (2) Encephalopathy Diagnosis: Principal (3) Intractable pain Diagnosis: Principal (4) PAD (peripheral artery disease) Diagnosis: Principal Travel History International Travel<30 Days: No Contact w/Intl Traveler <30 Da: No Traveled to Known Affected Are: No History of Present Illness This is a 52-year-old male with a PMH of HTN, COPD, Chronic Back Pain and PAD s/ p Left Fem-Pop Bypass by Dr. Logan on 08/21/17 who was brought to the ER secondary to AMS noted by family. Recent ER presentation 08/06/17 for c/o chest pain after epidural steroid injection and was dc'd home after negative work-up. Blood cultures 08/06/17 +Staph Schleiferi Coagulans 08/15, pt was called back and admitted 08/11-08/21/17, s/p eval by ID and completion of IV Abx w/ Levaquin. Was also evaluated by GI for BRBPR, s/p EGD/Colonoscopy 08/14/[address] Webb w / Ray's esophagus and mild gastritis. S/p Fem-Pop Bypass by Dr. Logan for intermittent claudication. D/c'd home on 08/21/17 in stable condition. Today , family noted pt to be confused. No reported fever, chills, chest pain, fall or head trauma. On arrival to ER pt oriented to person only. BP 155/80, HR 102 , O2 sat 100% on RA, Temp 100.7. WBC normal. Chemistry unremarkable except for BUN 22. GFR 71. Lactic Acid 2.5. Troponin negative. Her 0.9. Urine Drug Screen negative. Alcohol negative. CXR with no acute findings. CT Head normal. CTA Pulm normal. LE Doppler negative for DVT. S/p Blood Cultures, Vanc/Zosyn in ER and IVF. Pt w/ improved mental status at this time. Main complaint is back pain. States pain is severe, 10/10, sharp, constant, non- radiating, worse w/ movement. S/p Percocet in ER w/ no improvement. Review of Systems Except as stated in HPI: all other systems reviewed are Neg ROS: 14 point review of systems otherwise negative. Past Family Social History Past Medical History PMH: HTN, COPD, Chronic Back Pain and PAD s/p Left Fem-Pop Bypass by Dr. Logan on 08/21/17 Past Surgical History PAST SURGICAL HISTORY: Left Femoropopliteal Bypass, Cervical surgery Allergies: Coded Allergies: No Known Allergies (Verified Allergy, Unknown, 08/23/17) Family History PAST FAMILY HISTORY: Reviewed. No h/o DM or CAD Social History PAST SOCIAL HISTORY: Occasional alcohol. History of tobacco. Negative for drugs. Physical Exam Vital Signs Vital Signs Date Time Temp Pulse Resp B/P (MAP) Pulse Ox O2 Delivery O2 Flow Rate FiO2 08/23/17 16:53 100.7 08/23/17 16:29 98.3 102 18 155/80 (105) 100 Room Air Physical Exam PE: GENERAL: Very pleasant middle-aged white male in no acute distress. Multiple family members at bedside. HEENT: PERRLA, EOMI. No scleral icterus or conjunctival pallor. No lid lag or facial droop. CARDIOVASCULAR: Regular rate and rhythm. No obvious murmurs to auscultation. No chest tenderness to palpation. RESPIRATORY: No obvious rhonchi or wheezing. Clear to auscultation. Breath sounds equal bilaterally. GASTROINTESTINAL: Abdomen soft, non-tender, nondistended. BS normal. MUSCULOSKELETAL: Extremities without clubbing, cyanosis, or edema. No obvious deformities. Left leg surgical site intact, Steri-Strips in place, mild erythema /streaking. Pulses intact. NEUROLOGICAL: Awake, alert and oriented x4 at this time. No focal neurologic deficits. Moving both upper and lower extremities spontaneously. Laboratory Laboratory Tests Test 08/23/17 16:45 White Blood Count 10.9 Red Blood Count 4.12 Hemoglobin 13.6 Hematocrit 38.7 Mean Corpuscular Volume 93.9 Mean Corpuscular Hemoglobin 33.0 Mean Corpuscular Hemoglobin Concent 35.1 Red Cell Distribution Width 13.8 Platelet Count 205 Mean Platelet Volume 8.5 Neutrophils (%) (Auto) 68.3 Lymphocytes (%) (Auto) 19.4 Monocytes (%) (Auto) 10.2 Eosinophils (%) (Auto) 1.5 Basophils (%) (Auto) 0.6 Neutrophils # (Auto) 7.4 Lymphocytes # (Auto) 2.1 Monocytes # (Auto) 1.1 Eosinophils # (Auto) 0.2 Basophils # (Auto) 0.1 CBC Comment DIFF FINAL Differential Comment Prothrombin Time 9.6 Prothromb Time International Ratio 0.9 Activated Partial Thromboplast Time 27.3 Urine Color LIGHT-YELLOW Urine Turbidity CLEAR Urine pH 8.0 Urine Specific [place] 1.007 Urine Protein NEG Urine Glucose (UA) NEG Urine Ketones NEG Urine Occult Blood NEG Urine Nitrite NEG Urine Bilirubin NEG Urine Urobilinogen LESS THAN 2.0 Urine Leukocyte Esterase NEG Urine RBC LESS THAN 1 Urine WBC LESS THAN 1 Urine Hyaline Casts 1 Microscopic Urinalysis Comment CULT NOT INDICATED Blood Urea Nitrogen 22 Creatinine 1.10 Random Glucose 96 Total Protein 7.3 Albumin 3.5 Calcium Level 9.2 Magnesium Level 2.3 Alkaline Phosphatase 59 Aspartate Amino Transf (AST/SGOT) 16 Alanine Aminotransferase (ALT/SGPT) 18 Total Bilirubin 0.4 Sodium Level 138 Potassium Level 3.7 Chloride Level 105 Carbon Dioxide Level 24.9 Anion Gap 8 Estimat Glomerular Filtration Rate 71 Lactic Acid Level 2.5 Total Creatine Kinase 62 Troponin I LESS THAN 0.02 Lipase 82 Thyroid Stimulating Hormone 3rd Gen 7.910 Salicylates Level LESS THAN 1.7 Urine Opiates Screen NEG Acetaminophen Level LESS THAN 2.0 Urine Barbiturates Screen NEG Urine Amphetamines Screen NEG Urine Benzodiazepines Screen NEG Urine Cocaine Screen NEG Urine Cannabinoids Screen NEG Ethyl Alcohol Level LESS THAN 3 Date/Time Source Procedure Growth Status 08/23/17 16:45 Blood Peripheral Aerobic Blood Culture Pending Received 08/23/17 16:45 Blood Peripheral Anaerobic Blood Culture Pending Received Result Diagram: 08/23/17 1645 08/23/17 1645 Caprini VTE Risk Assessment Caprini VTE Risk Assessment: No/Low Risk (score <= 1) Caprini Risk Assessment Model Point Value = 1 Point Value = 2 Point Value = 3 Point Value = 5 Age 41-60 Minor surgery BMI > 25 kg/m2 Swollen legs Varicose veins or History of unexplained or recurrent spontaneous Oral contraceptives or hormone replacement Sepsis (< 1 month) Serious lung disease, including pneumonia (< 1 month) Abnormal pulmonary function Acute myocardial infarction Congestive heart failure (< 1 month) History of inflammatory bowel disease Medical patient at bed rest Age 61-74 Arthroscopic surgery Major open surgery (> 45 min) Laparoscopic surgery (> 45 min) Malignancy Confined to bed (> 72 hours) Immobilizing plaster cast Central venous access Age >= 75 History of VTE Family history of VTE Factor V Leiden Prothrombin [id number] Lupus anticoagulant Anticardiolipin antibodies Elevated serum homocysteine Heparin-induced thrombocytopenia Other congenital or acquired thrombophilia Stroke (< 1 month) Elective arthroplasty Hip, pelvis, or leg fracture Acute spinal cord injury (< 1 month) Prophylaxis Regimen Total Risk Factor Score Risk Level Prophylaxis Regimen 0-1 Low Early ambulation 2 Moderate Order ONE of the following: *Sequential Compression Device (SCD) *Heparin 5000 units SQ BID 3-4 Higher Order ONE of the following medications: *Heparin 5000 units SQ TID *Enoxaparin/Lovenox 40 mg SQ daily (WT < 150 kg, CrCl > 30 mL/min) *Enoxaparin/Lovenox 30 mg SQ daily (WT < 150 kg, CrCl > 10-29 mL/min) *Enoxaparin/Lovenox 30 mg SQ BID (WT < 150 kg, CrCl > 30 mL/min) AND/OR *Sequential Compression Device (SCD) 5 or more Highest Order ONE of the following medications: *Heparin 5000 units SQ TID (Preferred with Epidurals) *Enoxaparin/Lovenox 40 mg SQ daily (WT < 150 kg, CrCl > 30 mL/min) *Enoxaparin/Lovenox 30 mg SQ daily (WT < 150 kg, CrCl > 10-29 mL/min) *Enoxaparin/Lovenox 30 mg SQ BID (WT < 150 kg, CrCl > 30 mL/min) AND *Sequential Compression Device (SCD) Assessment and Plan Problem List: (1) Encephalopathy ICD Code: G93.40 - Encephalopathy, unspecified (2) Sepsis ICD Code: A41.9 - Sepsis, unspecified organism Status: Acute (3) PAD (peripheral artery disease) ICD Code: I73.9 - Peripheral vascular disease, unspecified (4) Intractable pain ICD Code: R52 - Pain, unspecified Assessment and Plan A/P: 1. Encephalopathy: acute onset of confusion per family, oriented to person only on arrival. CT Head w/ no acute findings, images reviewed by me. Mental status now improved, AA&Ox4 at this time. Transient AMS likely secondary to acute infection. 2. Sepsis: Temp 100.7, HR 102, Lactic Acid 2.5, Source-likely cellulitis. Recent Bacteremia on last admit, follow up Blood Cultures, s/p Vanc/Zosyn in ER , continue w/ IV Abx. Repeat Lactic Acid for trend. IVF for hydration. 3. PAD: recent admit w/ intermittent claudication, s/p Left Fem-Pop Bypass by Dr. Logan. Surgical site intact however mild surrounding erythema. Continue w/ treatment as above. Resume home Plavix. 4. Intractable Back Pain: H/o chronic back pain following injury at work 2017 , d/c'd on Percocet 10/325mg w/ no improvement. Optimize pain control now that mental status back to baseline. Start MS Contin and MS IR, Morphine IV if needed for severe pain. 5. DVT Prophylaxis: Heparin 6. Social work for d/c planning as needed. 7. Case discussed at length w/ ER physician, labs/records/imaging reviewed by me. Physician Certification 2 Midnight Certification Type: Admission for Inpatient Services Order for Inpatient Services The services are ordered in accordance with Medicare regulations or non- Medicare payer requirements, as applicable. In the case of services not specified as inpatient-only, they are appropriately provided as inpatient services in accordance with the 2-midnight benchmark. Estimated LOS (days): 2 days is the estimated time the patient will need to remain in the hospital, assuming treatment plan goals are met and no additional complications. Post-Hospital Plan: Not yet determined Problem Qualifiers (1) Sepsis: Qualified Codes: A41.9 - Sepsis, unspecified organism Luli Saldaña MD Aug 23, 2017 19:11
[2017-08-23] MEDS ORDERED: MORPHINE SULFATE 4 MG/ML INJ IV PUSH ONE (19:15)
[2017-08-23 20:00] VITALS: BP 132/76; PULSE 83; RESP 17; TEMP 98.3; O2SAT 97
[2017-08-23] MEDS ORDERED: VANCOMYCIN 500 MG/NS 100 ML IV ONE ×2 (20:00)
[2017-08-23] MEDS: SODIUM CHLOR 0.9% 1000 ML INJ 1,000 ML IV SCH ×2 (20:10→22:40)
[2017-08-23 20:11] VITALS: BP 129/77; PULSE 90; RESP 16; TEMP 99.7; O2SAT 99
[2017-08-23] MEDS: DOCUSATE SODIUM 50 MG/SENNA 8.6 MG TAB PO SCH (21:00)
[2017-08-23 21:37] VITALS: PULSE 84
[2017-08-23] MEDS: SODIUM CHLORIDE 0.9% FLUSH 10 ML FLUSH IV FLUSH SCH (21:56)
[2017-08-23] MEDS: MORPHINE SULFATE 15 MG CONTROLLED RELEASE TAB PO SCH (21:56)
[2017-08-23] MEDS: HEPARIN SODIUM - SQ 10,000 UNITS/ML VIAL SQ SCH (22:39)
[2017-08-23] MEDS: MORPHINE SULFATE 2 MG/ML INJ IV PUSH PRN (23:41)
[2017-08-24] VITALS (10 sets, daily range): BP systolic 100–119; BP diastolic 56–73; PULSE 65–91; RESP 16–20; TEMP 97.5–99; O2SAT 98–100
[2017-08-24] MEDS: MORPHINE SULFATE 15 MG TAB PO PRN ×3 (04:30→18:42)
[2017-08-24] MEDS ORDERED: CEFEPIME INJ 1,000 MG in SODIUM CHLORIDE 0.9% INJ 100 ML IV SCH (09:00)
[2017-08-24 09:17] LABS: AUTOMATED NEUTROPHIL # 4.6 TH/MM3 (1.8-7.7); BASOPHIL # 0.1 TH/MM3 (0-0.2); BASOPHIL % 0.9 % (0.0-2.0); EOSINOPHIL # 0.2 TH/MM3 (0-0.4); EOSINOPHIL % 3.2 % (0.0-4.0); HEMATOCRIT 29.8 % (39.0-51.0); HEMOGLOBIN 10.4 GM/DL (13.0-17.0); LYMPH % 21.3 % (9.0-44.0); LYMPHOCYTE # 1.5 TH/MM3 (1.0-4.8); MEAN CELL VOLUME 95.6 FL (80.0-100.0); MEAN CORPUSCULAR HEMOGLOBIN 33.4 PG (27.0-34.0); MEAN CORPUSCULAR HGB CONC 34.9 % (32.0-36.0); MEAN PLATELET VOLUME 8.3 FL (7.0-11.0); MONO % 11.4 % (0.0-8.0); MONOCYTE # 0.8 TH/MM3 (0-0.9); NEUT % 63.2 % (16.0-70.0); PLATELET COUNT 168 TH/MM3 (150-450); RED BLOOD COUNT 3.12 MIL/MM3 (4.50-5.90); RED CELL DISTRIBUTION WIDTH 13.9 % (11.6-17.2); WHITE BLOOD COUNT 7.2 TH/MM3 (4.0-11.0)
[2017-08-24 09:34] LABS: ALBUMIN 2.5 GM/DL (3.4-5.0); AST (GOT) 13 U/L (15-37); BICARBONATE 26.4 MEQ/L (21.0-32.0); BLOOD UREA NITROGEN 13 MG/DL (7-18); CALCIUM 8.5 MG/DL (8.5-10.1); CHLORIDE 110 MEQ/L (98-107); GLOMERULAR FILTRATION RATE 89 ML/MIN (>89); GLUCOSE,RANDOM 89 MG/DL (74-106); SODIUM (NA) 141 MEQ/L (136-145)
[2017-08-24 09:35] LABS: ALT (GPT) 11 U/L (12-78)
[2017-08-24 09:40] LABS: ALKALINE PHOSPHATASE 35 U/L (45-117); TOTAL BILIRUBIN ADULT 0.6 MG/DL (0.2-1.0); TOTAL PROTEIN 5.4 GM/DL (6.4-8.2)
[2017-08-24] MEDS: MORPHINE SULFATE 15 MG CONTROLLED RELEASE TAB PO SCH ×2 (09:50→21:05)
[2017-08-24] MEDS: CLOPIDOGREL 75 MG TAB PO SCH (09:51)
[2017-08-24] MEDS: DOCUSATE SODIUM 50 MG/SENNA 8.6 MG TAB PO SCH ×2 (09:51→21:00)
[2017-08-24] MEDS: HEPARIN SODIUM - SQ 10,000 UNITS/ML VIAL SQ SCH ×2 (09:57→21:05)
[2017-08-24] MEDS ORDERED: VANCOMYCIN 1 GM/200 ML PREMIX IV SCH (10:00)
--- NOTE | 2017-08-24 12:52 | HHI.PR ---
Subjective Remarks Follow-up for acute sepsis, cellulitis, delirium. Patient is currently doing well. He feels that he is back to his baseline. No fever or chills. Objective Vitals Vital Signs Date Time Temp Pulse Resp B/P (MAP) Pulse Ox O2 Delivery O2 Flow Rate FiO2 08/24/17 12:36 99.0 74 16 100/66 (77) 99 08/24/17 08:50 98.1 71 17 107/59 (75) 99 08/24/17 07:30 65 08/24/17 04:00 98.1 75 16 113/65 (81) 99 08/24/17 00:00 98.2 82 16 112/56 (74) 98 08/23/17 21:37 84 08/23/17 20:13 08/23/17 20:11 99.7 90 16 129/77 (94) 99 08/23/17 20:00 98.3 83 17 132/76 (94) 97 08/23/17 16:53 100.7 08/23/17 16:29 98.3 102 18 155/80 (105) 100 Room Air I/O 08/23/17 08/23/17 08/23/17 08/24/17 08/24/17 08/24/17 07:00 15:00 23:00 07:00 15:00 23:00 Intake Total 100 ml 1529 ml Output Total 800 ml Balance 100 ml 729 ml Intake Oral 820 ml IV Total 100 ml 709 ml Output Urine Total 800 ml Result Diagram: 08/24/1782208/24/17822 Imaging Last Impressions Head CT 08/23/171625 Signed Impressions: Service Date/Time: Wednesday, August 23, 2017 17:47 - CONCLUSION: Normal examination. Dick Darden MD Chest X-Ray 08/23/171625 Signed Impressions: Service Date/Time: Wednesday, August 23, 2017 17:14 - CONCLUSION: No acute disease. Dick Darden MD Lower Extremity Ultrasound 08/23/17 0000 Signed Impressions: Service Date/Time: Wednesday, August 23, 2017 18:22 - CONCLUSION: No evidence of DVT Dick Darden MD CT Angiography 08/23/17 0000 Signed Impressions: Service Date/Time: Wednesday, August 23, 2017 17:51 - CONCLUSION: Normal examination. No evidence of pulmonary embolization in no acute cardiopulmonary process Dick Darden MD Objective Remarks GENERAL: Alert, oriented 3, NAD. SKIN: Warm and dry. HEAD: Normocephalic. EYES: No scleral icterus. No injection or drainage. NECK: Supple, trachea midline. No JVD or lymphadenopathy. CARDIOVASCULAR: Regular rate and rhythm without murmurs, gallops, or rubs. RESPIRATORY: Breath sounds equal bilaterally. No accessory muscle use. GASTROINTESTINAL: Abdomen soft, non-tender, nondistended. MUSCULOSKELETAL: No cyanosis, or edema. Left lower extremity surgical incision sites are clean. There is no erythema present. BACK: Nontender without obvious deformity. No CVA tenderness. A/P Problem List: (1) Encephalopathy ICD Code: G93.40 - Encephalopathy, unspecified (2) Sepsis ICD Code: A41.9 - Sepsis, unspecified organism Status: Acute (3) PAD (peripheral artery disease) ICD Code: I73.9 - Peripheral vascular disease, unspecified (4) Intractable pain ICD Code: R52 - Pain, unspecified Assessment and Plan This is a 52-year-old male with a PMH of HTN, COPD, Chronic Back Pain and PAD s/ p Left Fem-Pop Bypass by Dr. Logan on 08/21/17 who was brought to the ER secondary to AMS noted by family. On arrival to ER pt oriented to person only. BP 155/80, HR 102, O2 sat 100% on RA, Temp 100.7. WBC normal. Chemistry unremarkable except for BUN 22. GFR 71. Lactic Acid 2.5. - Acute encephalopathy - Likely due to infection. Patient is currently back to his baseline. Alert oriented 3. - Acute sepsis - resolved. Likely due to cellulitis. - Left lower extremity cellulitis - Patient is currently on cefepime and vancomycin. - We'll switch patient's IV antibiotics to by mouth Keflex and Bactrim. - Follow blood cultures. Blood cx NG X 1 day. - D/C IV fluid. Patient is eating/drinking well. - Chronic back pain - Continue morphine 15 mg IR every 4 hours when necessary, morphine SR 15 mg every 12 hours. - Morphine IV 2 mg every 3 hours when necessary - Peripheral vascular disease - status post recent femoropopliteal bypass surgery. Continue Plavix. Full code. Heparin subcutaneous. Discharge plan: If patient remains hemodynamically stable, afebrile, potential discharge tomorrow 08/25/2017. Problem Qualifiers (1) Sepsis: Qualified Codes: A41.9 - Sepsis, unspecified organism Aspen Magallanes DO Aug 24, 2017 12:52 pm
--- NOTE | 2017-08-24 17:19 | EKG ---
Date Performed: 08/23/2017 Time Performed: 16:21:13 PTAGE: 52 years EKG: Sinus rhythm WITH OCCASIONAL VENTRICULAR PREMATURE COMPLEXES BORDERLINE ECG INTERPRETATION BASED ON A DEFAULT AGE OF 40 YEARS PREVIOUS TRACING : 08/11/2017 18.57 Since the prior tracing, there has been no significan t change DOCTOR: Mingo Brandt Interpretating Date/Time 08/24/2017 17:18:39
[2017-08-24] MEDS: CEPHALEXIN MONOHYDRATE 500 MG CAP PO SCH (18:39)
[2017-08-24] MEDS: SULFAMETHOXAZOLE-TRIMETHOPRIM DS 800-160 MG TAB PO SCH (21:05)
[2017-08-24] MEDS: SODIUM CHLORIDE 0.9% FLUSH 10 ML FLUSH IV FLUSH SCH (21:06)
[2017-08-25] VITALS: BP 115/69; PULSE 74; RESP 16; TEMP 97.6; O2SAT 99
[2017-08-25] MEDS: CEPHALEXIN MONOHYDRATE 500 MG CAP PO SCH ×3 (01:26→11:34)
[2017-08-25] MEDS: MORPHINE SULFATE 15 MG TAB PO PRN (01:28)
[2017-08-25 04:00] VITALS: BP 115/68; PULSE 64; RESP 16; TEMP 97.6; O2SAT 98
[2017-08-25] MEDS: MORPHINE SULFATE 2 MG/ML INJ IV PUSH PRN (05:33)
[2017-08-25 08:20] VITALS: BP 101/62; PULSE 61; RESP 17; TEMP 97.4; O2SAT 99
[2017-08-25] MEDS: MORPHINE SULFATE 15 MG CONTROLLED RELEASE TAB PO SCH (08:58)
[2017-08-25] MEDS: DOCUSATE SODIUM 50 MG/SENNA 8.6 MG TAB PO SCH (09:00)
[2017-08-25] MEDS: CLOPIDOGREL 75 MG TAB PO SCH (09:00)
[2017-08-25] MEDS: SULFAMETHOXAZOLE-TRIMETHOPRIM DS 800-160 MG TAB PO SCH (09:00)
[2017-08-25] MEDS: HEPARIN SODIUM - SQ 10,000 UNITS/ML VIAL SQ SCH (09:01)
[2017-08-25] MEDS: SODIUM CHLORIDE 0.9% FLUSH 10 ML FLUSH IV FLUSH SCH (09:01)
[2017-08-25] MEDS ORDERED: PHARMACY ORDERED LAB ONE (09:45)
[2017-08-25 10:33] VITALS: PULSE 57
[2017-08-25] MEDS ORDERED: PERC10TA27 PO (11:21)
[2017-08-25] MEDS ORDERED: CEPH500C PO (11:22)
[2017-08-25] MEDS ORDERED: SULF1TAB23 PO (11:22)
[2017-08-25 12:02] VITALS: BP 105/64; PULSE 72; RESP 17; TEMP 97.8; O2SAT 100
--- NOTE | 2017-08-25 13:21 | HHI.PR ---
Subjective Remarks Follow-up for acute sepsis, cellulitis, delirium. Patient is doing well. No acute concerns. Doing well with PT. No fever, chills. Mentation back to baseline. Objective Vitals Vital Signs Date Time Temp Pulse Resp B/P (MAP) Pulse Ox O2 Delivery O2 Flow Rate FiO2 08/25/17 12:02 97.8 72 17 105/64 (78) 100 08/25/17 10:33 57 08/25/17 08:20 97.4 61 17 101/62 (75) 99 08/25/17 04:00 97.6 64 16 115/68 (84) 98 08/25/17 00:00 97.6 74 16 115/69 (84) 99 08/24/17 20:00 97.5 77 18 119/65 (83) 98 08/24/17 19:49 75 08/24/17 16:30 86 20 118/69 (85) 100 08/24/17 16:30 91 08/24/17 16:00 68 08/24/17 16:00 98.2 78 17 117/73 (88) 99 I/O 08/24/17 08/24/17 08/24/17 08/25/17 08/25/17 08/25/17 07:00 15:00 23:00 07:00 15:00 23:00 Intake Total 1529 ml 400 ml 360 ml 240 ml Output Total 800 ml 500 ml 750 ml Balance 729 ml 400 ml -500 ml -390 ml 240 ml Intake Oral 820 ml 360 ml 240 ml IV Total 709 ml 400 ml Output Urine Total 800 ml 500 ml 750 ml Result Diagram: 08/24/1782208/24/17822 Imaging Last Impressions Head CT 08/23/171625 Signed Impressions: Service Date/Time: Wednesday, August 23, 2017 17:47 - CONCLUSION: Normal examination. Dick Darden MD Chest X-Ray 08/23/171625 Signed Impressions: Service Date/Time: Wednesday, August 23, 2017 17:14 - CONCLUSION: No acute disease. Dick Darden MD Lower Extremity Ultrasound 08/23/17 0000 Signed Impressions: Service Date/Time: Wednesday, August 23, 2017 18:22 - CONCLUSION: No evidence of DVT Dick Darden MD CT Angiography 08/23/17 0000 Signed Impressions: Service Date/Time: Wednesday, August 23, 2017 17:51 - CONCLUSION: Normal examination. No evidence of pulmonary embolization in no acute cardiopulmonary process Dick Darden MD Objective Remarks GENERAL: Alert, oriented 3, NAD. SKIN: Warm and dry. HEAD: Normocephalic. EYES: No scleral icterus. No injection or drainage. NECK: Supple, trachea midline. No JVD or lymphadenopathy. CARDIOVASCULAR: Regular rate and rhythm without murmurs, gallops, or rubs. RESPIRATORY: Breath sounds equal bilaterally. No accessory muscle use. GASTROINTESTINAL: Abdomen soft, non-tender, nondistended. MUSCULOSKELETAL: No cyanosis, or edema. Left lower extremity surgical incision sites are clean. There is no erythema present. Medial left thigh is tender to palpation. BACK: Nontender without obvious deformity. No CVA tenderness. Procedures None. A/P Problem List: (1) Encephalopathy ICD Code: G93.40 - Encephalopathy, unspecified (2) Sepsis ICD Code: A41.9 - Sepsis, unspecified organism Status: Acute (3) PAD (peripheral artery disease) ICD Code: I73.9 - Peripheral vascular disease, unspecified (4) Intractable pain ICD Code: R52 - Pain, unspecified Assessment and Plan This is a 52-year-old male with a PMH of HTN, COPD, Chronic Back Pain and PAD s/ p Left Fem-Pop Bypass by Dr. Logan on 08/21/17 who was brought to the ER secondary to AMS noted by family. On arrival to ER pt oriented to person only. BP 155/80, HR 102, O2 sat 100% on RA, Temp 100.7. WBC normal. Chemistry unremarkable except for BUN 22. GFR 71. Lactic Acid 2.5. - Acute encephalopathy - Likely due to infection. Patient is currently back to his baseline. Alert oriented 3. - Acute sepsis - resolved. Likely due to cellulitis. - Left lower extremity cellulitis - Patient is currently on cefepime and vancomycin. - We'll switch patient's IV antibiotics to by mouth Keflex and Bactrim. - Follow blood cultures. Blood cx NG X 1 day. - D/C IV fluid. Patient is eating/drinking well. - Chronic back pain - Continue morphine 15 mg IR every 4 hours when necessary, morphine SR 15 mg every 12 hours. - Morphine IV 2 mg every 3 hours when necessary - Will give Percocet 10 Q6hrs PRN on discharge. - Peripheral vascular disease - status post recent femoropopliteal bypass surgery. Continue Plavix. Full code. Heparin subcutaneous. Discussed with Dr. Rivera (Vascular surgery) regarding medial left thigh pain. Dr. Rivera is okay with our discharge plan. Patient has an appointment to see Dr. Rivera on 09/02. Discharge patient to home Condition on discharge: Improved Heart healthy Diet as tolerated Ad Denise activity Rx written: - Keflex 500mg Q6hrs #28 - Bactrim DS 1 tab Q12hrs #14 - Percocet 10/325mg Q6hrs PRN #28 Follow-up with primary care physician one week, Vascular surgery appt on 2017. Problem Qualifiers (1) Sepsis: Qualified Codes: A41.9 - Sepsis, unspecified organism Aspen Magallanes DO Aug 25, 2017 1:21 pm
== END 2017-08-25 14:46 | disposition home or self-care (01) | DRG 871 ==
LOC: NEPE 16:12 → NEDA 18:52 → N05B 20:22
PROVIDERS: ADMIT Hospitalist; ATTEND Hospitalist
DX: A41.9 Sepsis, unspecified organism (principal); G93.40 Encephalopathy, unspecified; Z68.1 Body mass index [BMI] 19.9 or less, adult; L03.116 Cellulitis of left lower limb; I73.9 Peripheral vascular disease, unspecified; I10 Essential (primary) hypertension; G89.29 Other chronic pain; M54.9 Dorsalgia, unspecified; J43.9 Emphysema, unspecified; R63.4 Abnormal weight loss; K22.70 Barrett's esophagus without dysplasia; Z87.891 Personal history of nicotine dependence; Z95.820 Peripheral vascular angioplasty status with implants and grafts
CPT/HCPCS: 70450; 71045; 71275; 80053; 80307; 81001; 82550; 83605; 83690; 83735; 84443; 84484; 85025; 85610; 85730; 87040; 93005; 93971; 96361; 96365; J0692; J1644; J2270; J2543; J3370; J7030; J7050; P9612; Q9967